=== PATIENT | male | born 1940 | race Caucasian/White ===

== ENCOUNTER 2017-03-21 23:34 | Inpatient (IN) | payer MEDICARE, MEDICAID ==
[~2017-03-21] VITALS: Ht 193 cm; Wt 126.3 kg
[2017-03-21 23:34] VITALS: BP 102/50
[~2017-03-21 23:34] MED LIST: ADVAIR 500/501 E1 INH; ADVAIR 500/501 EA INH; AEROSOL THERAPY1 DEV INH; AMIODARONE HCL200 MG PO; ATROVENT H0.017 MG/A INH; ATROVENT NAS; ATROVENT0.018 MG/A INH; CALCIUM 500 + D1 TA2 PO; COREG12.5 MG PO; COREG25 MG PO; COUMADIN2 MG PO; COUMADIN2.5 M1 PO; COUMADIN4 M2 PO; COUMADIN5 M2 PO; COZAAR25 M1 PO; Coumadin2 MG PO; Coumadin2.5 MG PO; DIGITEK0.25 MG PO; DILTIAZEM30 MG PO; DIOVAN160 M2 PO; DOXYCYCLINE100 M3 PO; DUONEB 3 MG/3 ML3 M1 INH; HYDRODIURIL25 MG PO; JANUVIA100 MG PO; KLOR-CON M2020 MEQ PO; Klor-Con PO; LASIX40 MG PO; LEVAQUIN750 M1 PO; LEVOFLOXACIN500 MG PO; LISINOPRIL2.5 MG PO; LISINOPRIL20 MG PO; LOPRESSOR50 M1 PO; METFORMIN HCL500 MG PO; METFORMIN500 MG PO; METOPROLOL SUCC50 M1 PO; METOPROLOL TART50 M1 PO; OYSTER SHELL CA PO; POTASSIUM CHLO20 ME4 PO; POTASSIUM20 MEQ PO; SIMVASTATIN80 MG PO; TUDORZA PRESS400 MCG IH; VANCOMYCIN HCL1 GM IV; VENTOLIN H0.09 MG/AC INH; VICODIN 5-3001 EACH PO; WARFARIN SOD5 MG PO
[2017-03-22 00:32] VITALS: BP 114/64
[2017-03-22 00:42] LABS: INTERNATIONAL NORM RATIO 1.7 (2.0-3.5); PROTHROMBIN TIME 18.4 SECONDS (9.0-12.4)
[2017-03-22 00:47] LABS: ALBUMIN 3.4 gm/dl (3.1-4.5); ALKALINE PHOSPHATASE 82 U/L (45-117); BILIRUBIN, TOTAL 1.2 mg/dl (0.2-1.0); BUN 25 mg/dl (7-24); CARBON DIOXIDE 26 mmol/L (21-32); CHLORIDE 107 mmol/L (98-107); EST GLOM FILT AFRICAN AMERICAN 46 ml/min; GLUCOSE 124 mg/dL (65-99); POTASSIUM 3.9 mmol/L (3.5-5.1); SGOT/AST 28 IU/L (3-35); SGPT/ALT 28 U/L (12-78); SODIUM 143 mmol/L (136-145); TOTAL PROTEIN 6.8 gm/dL (6.4-8.2)
[2017-03-22 00:48] LABS: TROPONIN I < 0.015 ng/ml (<0.045)
[2017-03-22 00:58] LABS: BASO % 0.2 % (0.0-1.0); EOS # 0.1 10*3/uL (0.0-0.4); EOS % 0.4 % (1.0-4.0); HEMATOCRIT 35.5 % (42.0-52.0); HEMOGLOBIN 11.2 g/dl (14.0-18.0); IG # 0.1 10*3/uL (0.0-0.1); LYMPH # 1.1 10*3/uL (1.3-4.4); LYMPH % 6.7 % (27.0-41.0); MEAN CELL VOLUME 92.4 fl (80.0-94.0); MEAN CORPUSCULAR HGB 29.2 pg (27.0-31.0); MEAN CORPUSCULAR HGB CONC 31.5 g/dl (33.0-37.0); MEAN PLATELET VOLUME 9.9 fl (9.6-12.3); MONO % 6.3 % (3.0-9.0); NEUT % 85.8 % (47.0-73.0); PLATELET COUNT AUTOMATED 165 10*3/uL (130-400); RED BLOOD COUNT 3.84 10*6/uL (4.50-5.90); RED CELL DISTRI WIDTH 14.2 % (0-14.5); WHITE BLOOD COUNT 16.3 10*3/uL (4.8-10.8)
[2017-03-22 01:12] VITALS: BP 110/70
[2017-03-22 01:37] LABS: BILIRUBIN NEGATIVE (NEGATIVE); BLOOD NEGATIVE (NEGATIVE); CLARITY SL CLOUDY (CLEAR); COLOR YELLOW (YELLOW); GLUCOSE NEGATIVE (NEGATIVE); KETONE NEGATIVE (NEGATIVE); LEUKO ESTERASE NEGATIVE (NEGATIVE); NITRITE NEGATIVE (NEGATIVE); PROTEIN NEGATIVE (NEGATIVE); SPECIFIC GRAVITY 1.015 (1.005-1.030); UROBILINOGEN 0.2 E.U./dl (0.2-1.0)
[2017-03-22 01:43] LABS: BACTERIA TRACE; URINE REFLEX COMMENT NO (NO); WBC 0-2 wbc/hpf (0-5)
[2017-03-22 02:30] VITALS: BP 121/77
[2017-03-22 08:00] VITALS: BP 126/70
[2017-03-22 12:00] VITALS: BP 108/55
[2017-03-22 16:00] VITALS: BP 98/54
[2017-03-23] VITALS: BP 109/52
[2017-03-23 08:00] VITALS: BP 128/78
[2017-03-23 16:00] VITALS: BP 111/53
[2017-03-24] VITALS: BP 107/63
[2017-03-24 07:25] LABS: BASO % 0.3 % (0.0-1.0); EOS # 0.2 10*3/uL (0.0-0.4); EOS % 2.3 % (1.0-4.0); HEMATOCRIT 31.5 % (42.0-52.0); HEMOGLOBIN 9.9 g/dl (14.0-18.0); IG # 0.1 10*3/uL (0.0-0.1); LYMPH % 14.8 % (27.0-41.0); MEAN CELL VOLUME 93.8 fl (80.0-94.0); MEAN CORPUSCULAR HGB 29.5 pg (27.0-31.0); MEAN CORPUSCULAR HGB CONC 31.4 g/dl (33.0-37.0); MEAN PLATELET VOLUME 10.3 fl (9.6-12.3); MONO # 0.5 10*3/uL (0.1-1.0); MONO % 8.3 % (3.0-9.0); NEUT # 4.8 10*3/uL (2.3-7.9); NEUT % 73.5 % (47.0-73.0); PLATELET COUNT AUTOMATED 129 10*3/uL (130-400); RED BLOOD COUNT 3.36 10*6/uL (4.50-5.90); RED CELL DISTRI WIDTH 14.2 % (0-14.5); WHITE BLOOD COUNT 6.5 10*3/uL (4.8-10.8)
[2017-03-24 07:58] LABS: ALBUMIN 2.6 gm/dl (3.1-4.5); BUN 25 mg/dl (7-24); CARBON DIOXIDE 26 mmol/L (21-32); CHLORIDE 107 mmol/L (98-107); GLUCOSE 107 mg/dL (65-99); MAGNESIUM 2.7 mg/dL (1.5-2.1); POTASSIUM 4.1 mmol/L (3.5-5.1); SODIUM 143 mmol/L (136-145)
[2017-03-24 07:59] LABS: EST GLOM FILT AFRICAN AMERICAN > 60 ml/min; PHOSPHOROUS 2.8 mg/dL (2.5-4.9)
[2017-03-24 08:00] VITALS: BP 89/56
[2017-03-24 16:00] VITALS: BP 117/56
[2017-03-25] VITALS: BP 105/61
[2017-03-25 07:37] LABS: INTERNATIONAL NORM RATIO 1.4 (2.0-3.5); PROTHROMBIN TIME 14.8 SECONDS (9.0-12.4)
[2017-03-25 07:53] LABS: ALBUMIN 2.6 gm/dl (3.1-4.5); BUN 22 mg/dl (7-24); CARBON DIOXIDE 28 mmol/L (21-32); CHLORIDE 107 mmol/L (98-107); EST GLOM FILT AFRICAN AMERICAN > 60 ml/min; GLUCOSE 103 mg/dL (65-99); MAGNESIUM 2.7 mg/dL (1.5-2.1); PHOSPHOROUS 2.8 mg/dL (2.5-4.9); POTASSIUM 4.6 mmol/L (3.5-5.1); SODIUM 144 mmol/L (136-145)
[2017-03-25 08:00] VITALS: BP 129/87
[2017-03-25] MEDS ORDERED: ATHLETE'S FOOT15 GM T (13:04)
== END 2017-03-25 14:25 | disposition home or self-care (01) | DRG 871 ==
LOC: ED 23:34 → 4E 03-22 01:20 → EDHOLD 03-22 01:20 → ED 03-22 01:20 → 4E 03-22 01:27 → EDHOLD 03-22 01:27 → 4E 03-22 12:10
PROVIDERS: Family Medicine; Internal Medicine; Internal Medicine Infectious Disease; Internal Medicine Nephrology; Physician Assistant
DX: A41.9 Sepsis, unspecified organism (principal); J18.9 Pneumonia, unspecified organism; N17.9 Acute kidney failure, unspecified; I11.0 Hypertensive heart disease with heart failure; I48.91 Unspecified atrial fibrillation; L03.115 Cellulitis of right lower limb; L02.212 Cutaneous abscess of back [any part, except buttock and flank]; I50.9 Heart failure, unspecified; L03.312 Cellulitis of back [any part except buttock and flank]; J44.0 Chronic obstructive pulmonary disease with (acute) lower respiratory infection; J44.1 Chronic obstructive pulmonary disease with (acute) exacerbation; M19.90 Unspecified osteoarthritis, unspecified site; E78.5 Hyperlipidemia, unspecified; G47.33 Obstructive sleep apnea (adult) (pediatric); M81.0 Age-related osteoporosis without current pathological fracture; G25.81 Restless legs syndrome; M54.9 Dorsalgia, unspecified; E11.9 Type 2 diabetes mellitus without complications; Z88.0 Allergy status to penicillin; Z88.1 Allergy status to other antibiotic agents; Z88.8 Allergy status to other drugs, medicaments and biological substances; Z90.49 Acquired absence of other specified parts of digestive tract; Z98.42 Cataract extraction status, left eye; Z98.41 Cataract extraction status, right eye; Z87.891 Personal history of nicotine dependence; Z82.49 Family history of ischemic heart disease and other diseases of the circulatory system; Z84.89 Family history of other specified conditions; Z83.3 Family history of diabetes mellitus; Z79.899 Other long term (current) drug therapy

== ENCOUNTER → 2017-05-28 | Outpatient (CLI) | payer MEDICARE, MEDICAID ==
[~2017-05-28] MED LIST changes: +ATHLETE'S FOOT15 GM T
== END | disposition home or self-care (01) ==
LOC: RAD 11:03
DX: J44.9 Chronic obstructive pulmonary disease, unspecified (principal); E11.9 Type 2 diabetes mellitus without complications; I10 Essential (primary) hypertension; I25.10 Atherosclerotic heart disease of native coronary artery without angina pectoris; Z87.891 Personal history of nicotine dependence

== ENCOUNTER 2017-06-05 15:18 | Inpatient (IN) | payer MEDICARE, MEDICAID ==
[~2017-06-05] VITALS: Ht 193 cm; Wt 129.3 kg
--- NOTE | ~2017-06-05 | WRIGHTHP ---
[place], [place] PATIENT HISTORY AND PHYSICAL EXAM NAME: BIJAL LEES [facility] #: [id number] UNIT #: [id number] ROOM: 411 DOCTOR: PAWAN PADILLA MD BIRTHDATE: [birth year] DOS: 06/06/2017 HISTORY OF PRESENT ILLNESS: The patient who has been admitted to hospital yesterday on 06/05/2017. The patient is having pain and swelling of the right forearm and left lower leg and ankle. The patient states that he normally has swelling of the left ankle and left foot that has been good, but this swelling in the right forearm is new. He is also having pain in the right forearm. He started having this swelling of the arm about 5 days ago, progressively getting worse and getting more painful. He came to the hospital ER and was diagnosed of having severe cellulitis of the right forearm with varicose dermatitis of the legs and admitted to the hospital. The patient has history of COPD with emphysema, history of varicose dermatitis, obesity and the patient is also having history of deep vein thrombosis in the past and is on Coumadin for that. Also, having atrial fibrillation, diabetes mellitus and hypertension. ALLERGIES: The patient is allergic to multiple medications including PENICILLIN, BACITRACIN, , NEOMYCIN, POLYMYXIN B, SEROQUEL, LEVOFLOXACIN AND MEROPENEM. MEDICATIONS: He is taking following medications at present, Lasix 40 mg twice daily, potassium chloride 40 twice daily, Coumadin 2 mg daily, Imodium hydrochloride 200 mg twice daily, metformin 500 mg twice daily, metoprolol 75 mg twice daily, Advair 500/50 twice daily and Januvia 100 mg daily. The patient also had past history of renal failure, respiratory distress, anemia, atrial fibrillation, chronic back pain, bilateral cellulitis of the lower leg, bursitis, cellulitis, congestive heart failure, COPD with excerebration, degenerative joint disease, hyperlipidemia, hypertension, hypokalemia, obesity, and pneumonia. PAST SURGICAL HISTORY: He has a history of cardiac catheterization, cholecystectomy, colonoscopy with polypectomy. SOCIAL HISTORY: The patient used to smoke many years ago, but he does not smoke now. He does not drink any alcohol. No abuse of drugs. FAMILY HISTORY: Father of heart disease, mother of cerebral hemorrhage. History of diabetes mellitus and coronary heart disease in the family. PHYSICAL EXAMINATION: GENERAL: The patient is conscious, alert, and oriented, and does seem in any acute distress. VITAL SIGNS: He is 6 feet 4 inches tall, weighing 280 pounds, body mass is 33.8, blood pressure is 155/59, pulse is 60, respirations 18, temperature 98.3. HEENT: Unremarkable. No glandular enlargement. NECK: Trachea is center, having some scattered wheezing in both the lungs with increased expiration. HEART: Showing atrial fibrillation. ABDOMEN: Soft. Liver and spleen not palpable. No area of tenderness. No mass palpable. [place], [place] PATIENT HISTORY AND PHYSICAL EXAM [id number] UN[facility] #: [id number] ROOM: 411 DOCTOR: PAWAN PADILLA MD BIRTHDATE: [birth year] EXTREMITIES: Having swelling of the right arm and forearm more in the forearm and hand with some localized temperature and there is some suspected lesion near the elbow and movement of the right arm and forearm are somewhat painful and limited and also having varicose dermatitis of both lower limbs, worse on the left side with edema of the legs. DIAGNOSES: Cellulitis of the right arm with varicose dermatitis with atrial fibrillation, back pain, sepsis, chronic obstructive pulmonary disease, shortness of breath, pneumonitis, obesity, diabetes mellitus, ASHD, and hypertension. PLAN OF TREATMENT: The patient will be admitted to hospital, will be started on antibiotic and his home medication and will be watched closely. He will have his aerosol treatment for his COPD. PAWAN PADILLA MD CM:HISPHYS:PATIENT HISTORY AND PHYSICAL EXAMINATION 0723 7 PAWAN PADILLA MD 06/06/1708 interface
--- NOTE | ~2017-06-05 | CON ---
[place], [place] REPORT OF CONSULTATION NAME: BIJAL LEES UNIT #: [id number] ROOM: 411 DOCTOR: ARIANA HARPER DPM BIRTHDATE: [birth year] DOS: 06/08/2017 SUBJECTIVE: The patient presents with swelling, chronic venous insufficiency of both lower extremities. The patient has had a history of venous ulcerations and infection consisting of MRSA infection to the left lower extremity. PAST MEDICAL HISTORY: Renal failure, respiratory distress, anemia, atrial fibrillation, chronic back pain, bilateral cellulitis of lower leg, bursitis, cellulitis, CHF, COPD, degenerative joint disease, hyperlipidemia, hypertension, hypokalemia, obesity, pneumonia. PAST SURGICAL HISTORY: Cardiac catheterization, cholecystectomy, colonoscopy with polypectomy. SOCIAL HISTORY: The patient used to smoke many years ago, but does not currently smoke. Denies alcohol or drug use. FAMILY HISTORY: Father is of heart disease. Mother of cerebral hemorrhage. Family history of diabetes and coronary artery disease. LOWER EXTREMITY EXAMINATION: Pedal pulses nonpalpable. Decreased skin temperature. Decreased capillary fill time. Decreased hair growth bilateral. There is edema bilateral lower extremity, left worse than right, chronic venous stasis dermatitis and changes to the anterior aspect of bilateral lower legs. No signs of acute abscess, no signs of ulceration or cellulitis. Venous Doppler is negative for DVT. I had ordered arterial Dopplers, which have not been performed yet. ASSESSMENT: Edema; chronic venous insufficiency; venous stasis dermatitis, bilateral lower leg; peripheral vascular disease. PLAN: Evaluation and management. I was going to apply Unna boots, but the arterial testing was not performed yet, scheduled later today. Ordered Tubigrip to be applied at this time. The patient does not have ENRIQUETA of over 0.6. Unna boots will not be recommended. We will follow the patient, see how he responds to the Tubigrip and if arterial supply is sufficient, we can apply the Unna boots in a day or two. Thank you for kind consultation. [place], [place] REPORT OF CONSULTATION NAME: BIJAL LEES UNIT #: [id number] ROOM: 411 DOCTOR: ARIANA HARPER DPM BIRTHDATE: [birth year] ARIANA HARPER DPM CM:CONSTR:REPORT OF CONSULTATION 1256 06/09/17 0130 interface
[2017-06-05 15:24] VITALS: BP 136/78
--- NOTE | 2017-06-05 15:51 | NUR ---
WOUND NOTE; PT HAS CHRONIC STASIS CHANGES TO BILATERAL LOWER LEGS SCATTERED WOUNDS/ECCHYMOSIS TO BILATERAL FOREARMS. ABHIJEET RN
[2017-06-05 16:05] LABS: BASO # 0.1 10*3/uL (0.0-0.1); BASO % 0.7 % (0.0-1.0); EOS # 0.2 10*3/uL (0.0-0.4); EOS % 1.9 % (1.0-4.0); HEMOGLOBIN 10.6 g/dl (14.0-18.0); LYMPH # 1.2 10*3/uL (1.3-4.4); LYMPH % 14.2 % (27.0-41.0); MEAN CELL VOLUME 92.1 fl (80.0-94.0); MEAN CORPUSCULAR HGB 28.7 pg (27.0-31.0); MEAN CORPUSCULAR HGB CONC 31.2 g/dl (33.0-37.0); MEAN PLATELET VOLUME 9.6 fl (9.6-12.3); MONO # 0.7 10*3/uL (0.1-1.0); MONO % 8.2 % (3.0-9.0); NEUT # 6.2 10*3/uL (2.3-7.9); NEUT % 74.2 % (47.0-73.0); PLATELET COUNT AUTOMATED 259 10*3/uL (130-400); RED BLOOD COUNT 3.69 10*6/uL (4.50-5.90); RED CELL DISTRI WIDTH 14.4 % (0-14.5); WHITE BLOOD COUNT 8.4 10*3/uL (4.8-10.8)
[2017-06-05 16:19] LABS: ALBUMIN 3.1 gm/dl (3.1-4.5); CREATININE 1.49 mg/dL (0.70-1.30); POTASSIUM 4.2 mmol/L (3.5-5.1); TOTAL PROTEIN 6.9 gm/dL (6.4-8.2)
[2017-06-05 17:01] LABS: INTERNATIONAL NORM RATIO 1.7 (2.0-3.5)
[2017-06-05] MEDS ORDERED: BACTRIM 400-801 EACH PO ×2 (17:34→17:55)
[2017-06-05] MEDS ORDERED: ROBITUSSIN AC 110 ML PO (17:34)
[2017-06-05] MEDS ORDERED: CLEOCIN HCL300 MG PO (17:36)
--- NOTE | 2017-06-05 17:53 | NUR ---
PT HAS A TWO SCABBED AREAS ON LT ARM. BLE ARE EDEMATOUS/CELLULITIS. PT IS REFUSING WOUND PHOTOS.
[2017-06-05 18:00] VITALS: BP 170/96
--- NOTE | 2017-06-05 18:00 | NUR ---
A 77, admitted to 4E, under the services of IRMA Parisi MD with a diagnosis of OLECRANON NURSITIS, RIGHT ELBOW BURSITIS. Chief complaint is MULTIPLE COMPLAINTS. Patient arrived via stretcher from ER. Monitor applied. Initial assessment completed. Vital signs taken and recorded. IRMA PARISI MD notified of admission to the unit. Orders received. See assessment for past medical history, medications and allergies. Patient and/or family oriented to unit. visitation policy reviewed. Clothing/patient valuable form completed. GIORGIO MCGREGOR
--- NOTE | 2017-06-05 19:15 | NUR ---
NOTIFIED DR. PADILLA THAT PATIENT WAS ADMITTED AND DR. CRAFT WANTED HIM NOTIFIED.
[2017-06-05 20:00] VITALS: BP 152/53
[2017-06-06] VITALS: BP 155/59
--- NOTE | 2017-06-06 03:24 | NUR ---
PATIENT RESTING WELL THROUGHOUT SHIFT. NO SIGNS OR SYMPTOMS OF DISTRESS NOTED. NO COMPLAINTS VOICED. IN BED WITH EYES CLOSED AT THIS TIME. WILL CONTINUE TO MONITOR. CALL LIGHT IN REACH.
--- NOTE | 2017-06-06 03:34 | NUR ---
24 HOUR CHART CHECK DONE.
--- NOTE | 2017-06-06 07:00 | NUR ---
DR. PADILLA HERE TO SEE PATIENT.
[2017-06-06 08:00] VITALS: BP 129/70
[2017-06-06 16:00] VITALS: BP 100/82
--- NOTE | 2017-06-06 19:55 | NUR ---
DR. CRAFT NOTIFIED OF PATIENTS CORRECT HOME MEDS, MEDS CHANGED ORDERED. AND ALSO REQUEST FOR PAIN MED FOR BACK PAIN. ALSO ORDERED. SAMUEL BOURNE RN
--- NOTE | 2017-06-06 20:35 | NUR ---
PT. RESTING IN BED. HEP LOCK IN SHARI ASYMPT. LUNGS CLEAR BILAT, PULSE OX 97% ON RA. ABDOMEN SOFT, NONDISTENDED AND NORMO. 2+BLE EDEMA, RIGHT ELBOW AND BLE, L>R. COMPLAINTS OF LOWER BACK PAIN FROM PREVIOUS FALL PRIOR TO ADMISSION. SAMUEL BOURNE RN
--- NOTE | 2017-06-06 21:38 | NUR ---
NORCO GIVEN ORDERED FOR COMPLAINTS OF BACK PAIN.
--- NOTE | 2017-06-06 22:13 | NUR ---
PT. SLEEPING, NORCO EFFECTIVE.
[2017-06-07] VITALS: BP 119/52
--- NOTE | 2017-06-07 05:00 | NUR ---
Patient resting quietly with no c/o discomfort. Respirations easy and regular. Vital signs stable. No overt distress. YULISSA CLEMENT R
[2017-06-07 08:00] VITALS: BP 126/66
--- NOTE | 2017-06-07 08:00 | NUR ---
24 HR chart check completed.
--- NOTE | 2017-06-07 08:00 | NUR ---
CASE MANAGE VS. PT ASKS THAT I TALK TO HIS ABOUT DC NEEDS.
--- NOTE | 2017-06-07 10:47 | NUR ---
DR RIOJAS MADE AWARE OF NEED FOR R ELBOW WOUND AND RESULTS OF WOUND CULTURE.
--- NOTE | 2017-06-07 11:17 | NUR ---
NABEELBIJAL L [id number] Please refer to the physician's history and physical for past medical history, comorbid conditions, and allergies. Diagnosis: OLECRANON BURSITIS, RIGHT ELBOW CELLULITIS OF RIGH Nicolas Score: 19,LOW OR NO RISK WOUND DESCRIPTIONS: Location of the wound: right elbow Type of wound: Thickness: Full Size: 0.2cm x 0.4cm x 0.2cm Tunneling: none Undermining: none Sinus Tract: none Presence of Exudate: Serous Amount: Light Color: Yellow Odor: None Periwound Skin Appearance: Erythema Wound edges: approximated Pain (associated with wound): none at time of assessment How does patient state this happened? pt stated it was drained on Wednesday prior to that it was red, warm, and swollen. Surface the patient is resting on: Isoflex SKIN PREVENTION RECOMMENDATION: 1. Pressure redistribution support surface as appropriate 2. Elevate heels 3. Remove boots/TEDS every shift and reapply 4. Head of bed 30 degrees as tolerated 5. Assess nutrition and hydration 6. Manage moisture 7. Avoid the use of containment devices while in bed 8. Use absorptive products on surfaces limit layers of linens on bed 9. Turn and reposition every 1-2 hours in bed and every 1 hour in chair as tolerated 10. Weight shifts every 15 minutes while up in chair 11. Offloading with pillows or device to keep heels elevated off bed 12. Monitor skin at least every shift 13. Inspect under medical devices twice a day WOUND TREATMENT RECOMMENDATIONS: Cleanse area with nss and apply therahoney and optifoam gentle daily.
[2017-06-07 12:10] LABS: BASO # 0.1 10*3/uL (0.0-0.1); BASO % 0.9 % (0.0-1.0); EOS # 0.2 10*3/uL (0.0-0.4); EOS % 2.6 % (1.0-4.0); HEMATOCRIT 34.6 % (42.0-52.0); HEMOGLOBIN 10.7 g/dl (14.0-18.0); LYMPH % 15.1 % (27.0-41.0); MEAN CORPUSCULAR HGB 28.5 pg (27.0-31.0); MEAN CORPUSCULAR HGB CONC 30.9 g/dl (33.0-37.0); MEAN PLATELET VOLUME 9.4 fl (9.6-12.3); MONO # 0.6 10*3/uL (0.1-1.0); MONO % 8.5 % (3.0-9.0); NEUT % 72.3 % (47.0-73.0); PLATELET COUNT AUTOMATED 264 10*3/uL (130-400); RED BLOOD COUNT 3.76 10*6/uL (4.50-5.90); RED CELL DISTRI WIDTH 14.5 % (0-14.5); WHITE BLOOD COUNT 6.9 10*3/uL (4.8-10.8)
[2017-06-07 12:24] LABS: ALBUMIN 2.9 gm/dl (3.1-4.5); CREATININE 1.4 mg/dL (0.70-1.30); POTASSIUM 4.5 mmol/L (3.5-5.1); TOTAL PROTEIN 6.6 gm/dL (6.4-8.2)
--- NOTE | 2017-06-07 13:11 | NUR ---
ASSEMBLY ASSOCIATE CALLED AND TALKED TO . SHE ANSWERED ASSESSMENT QUESTIONS: It Service Continuity Supervisor in to talk to patient. Patient states lives at HOME [address] with HIS . There are 0 steps in the home. Physician: DR CRAFT Pharmacy: [facility] services: PASSPORT AID --- THROUGH [facility] AND NURSE FROM [facility] Patient's level of ADLs: MODERATE ASSIST Patient has working utilities: YES DME: CANE/WALKER/GLUC/HOSP BED/O2 (PLUS PORTABLE) FROM [facility]. AT NIGHT AND PRN Follow-up physician's appointment after d/c: WILL MAKE APPT Does patient want to access PORTAL?: Discharge plan HOME. EWA SANCHEZ REFUSES SNF. STATES PT WILL GO BACK HOME
[2017-06-07 16:00] VITALS: BP 131/85
[2017-06-07 16:43] VITALS: BP 131/83
--- NOTE | 2017-06-07 17:57 | NUR ---
DR HARPER CONSULTED AND HAS ORDERED VENOUS US OF BILATERAL LOWER LEGS. WENT TO APPLY DRESSING TO R ARM AND PT HAS REFUSED AT THIS TIME.
--- NOTE | 2017-06-07 19:32 | NUR ---
PT. RESTING IN BED WATCHING TV. HEP LOCK IN SHARI ASYMPT. LUNGS HAVE EXP. WHEEZE. ABDOMEN SOFTLY DISTENDED AND OBESE. BLE EDEMA NOTED, L>R, LEFT 1+ AND RIGHT 2+ TO AND INCLUDING FEET. DRESSING TO RIGHT ELBOW APPLIED ORDERED. NO DRAINAGE FROM NEEDLEPOINT SITE OR CELLULITIS OF ELBOW. SAMUEL BOURNE RN
--- NOTE | 2017-06-07 21:18 | NUR ---
IV SITE IN THE LEFT AC DISCONTINUED DUE TO LEAKING. #20 GAUGE RESTARTED BACK IN THE LEFT AC. PATIENT TOLERATED WELL. GOOD BLOOD RETURN. FLUSHED WITH NORMAL SALINE. ANTIBIOTIC RESTARTED AT THIS TIME, SITE REMAINS ASYMPTOMATIC
--- NOTE | 2017-06-07 23:17 | NUR ---
PT. GIVEN NORCO AT 2044 FOR COMPLAINTS OF BACK PAIN, STATED EFFECTIVE.
[2017-06-08] VITALS: BP 122/59
[2017-06-08 05:58] LABS: BASO # 0.1 10*3/uL (0.0-0.1); BASO % 0.8 % (0.0-1.0); EOS # 0.2 10*3/uL (0.0-0.4); EOS % 2.4 % (1.0-4.0); HEMATOCRIT 32.2 % (42.0-52.0); HEMOGLOBIN 10.1 g/dl (14.0-18.0); LYMPH # 1.2 10*3/uL (1.3-4.4); LYMPH % 19.2 % (27.0-41.0); MEAN CELL VOLUME 90.7 fl (80.0-94.0); MEAN CORPUSCULAR HGB 28.5 pg (27.0-31.0); MEAN CORPUSCULAR HGB CONC 31.4 g/dl (33.0-37.0); MEAN PLATELET VOLUME 9.6 fl (9.6-12.3); MONO # 0.5 10*3/uL (0.1-1.0); MONO % 8.5 % (3.0-9.0); NEUT # 4.2 10*3/uL (2.3-7.9); NEUT % 68.6 % (47.0-73.0); PLATELET COUNT AUTOMATED 262 10*3/uL (130-400); RED BLOOD COUNT 3.55 10*6/uL (4.50-5.90); RED CELL DISTRI WIDTH 14.2 % (0-14.5); WHITE BLOOD COUNT 6.1 10*3/uL (4.8-10.8)
[2017-06-08 06:24] LABS: ALBUMIN 2.8 gm/dl (3.1-4.5); ALKALINE PHOSPHATASE 102 U/L (45-117); BUN 23 mg/dl (7-24); CHLORIDE 102 mmol/L (98-107); CREATININE 1.33 mg/dL (0.70-1.30); INTERNATIONAL NORM RATIO 1.6 (2.0-3.5); SGOT/AST 36 IU/L (3-35); SGPT/ALT 38 U/L (12-78); SODIUM 137 mmol/L (136-145); TOTAL PROTEIN 6.2 gm/dL (6.4-8.2)
[2017-06-08 08:00] VITALS: BP 152/83
--- NOTE | 2017-06-08 10:59 | NUR ---
OFFICE NOTIFIED OF CONSULT
--- NOTE | 2017-06-08 15:05 | NUR ---
Shift chart check completed.
[2017-06-08 16:00] VITALS: BP 125/65
--- NOTE | 2017-06-08 19:47 | NUR ---
PT. RESTING IN CHAIR. HEP LOCK IN SHARI ASYMPT. LUNGS DIMINISHED BUT CLEAR BILAT. ABDOMEN SOFTLY DISTENDED AND NORMO. TRACE BLE ON RIGHT AND 1-2+ ON LEFT. PT. REFUSING TO LEAVE ARM IN SLING, STATES HE CANT STAND IT. ALSO KEEPS REMOVING DRESSING FROM RIGHT ELBOW. THERAHONEY AND BANDAID APPLIED TO SITE PER PT DIRECTION. RESP. EASY AND REG NO DISTRESS. SAMUEL BOURNE RN
[2017-06-08 20:00] VITALS: BP 138/95
--- NOTE | 2017-06-08 21:34 | NUR ---
[facility] FOR COMPLAINTS OF BACK PAIN.
[2017-06-09] VITALS: BP 111/55
--- NOTE | 2017-06-09 02:17 | NUR ---
24 HOUR CHART CHECK DONE.
[2017-06-09 06:03] LABS: ALBUMIN 2.9 gm/dl (3.1-4.5); ALKALINE PHOSPHATASE 101 U/L (45-117); BUN 24 mg/dl (7-24); CHLORIDE 99 mmol/L (98-107); CREATININE 1.29 mg/dL (0.70-1.30); SGOT/AST 32 IU/L (3-35); SGPT/ALT 37 U/L (12-78); SODIUM 139 mmol/L (136-145); TOTAL PROTEIN 6.4 gm/dL (6.4-8.2)
[2017-06-09 06:14] LABS: BASO % 0.7 % (0.0-1.0); EOS # 0.2 10*3/uL (0.0-0.4); EOS % 3.4 % (1.0-4.0); HEMATOCRIT 33.8 % (42.0-52.0); HEMOGLOBIN 10.6 g/dl (14.0-18.0); LYMPH # 1.2 10*3/uL (1.3-4.4); LYMPH % 21.2 % (27.0-41.0); MEAN CELL VOLUME 91.1 fl (80.0-94.0); MEAN CORPUSCULAR HGB 28.6 pg (27.0-31.0); MEAN CORPUSCULAR HGB CONC 31.4 g/dl (33.0-37.0); MEAN PLATELET VOLUME 9.7 fl (9.6-12.3); MONO # 0.6 10*3/uL (0.1-1.0); MONO % 9.8 % (3.0-9.0); NEUT # 3.7 10*3/uL (2.3-7.9); NEUT % 64.2 % (47.0-73.0); PLATELET COUNT AUTOMATED 267 10*3/uL (130-400); RED BLOOD COUNT 3.71 10*6/uL (4.50-5.90); RED CELL DISTRI WIDTH 14.3 % (0-14.5); WHITE BLOOD COUNT 5.8 10*3/uL (4.8-10.8)
[2017-06-09 06:19] LABS: INTERNATIONAL NORM RATIO 1.6 (2.0-3.5)
--- NOTE | 2017-06-09 06:28 | NUR ---
PATIENT RESTED WELL THROUGHOUT SHIFT. IV OUT THIS AM. NEW IV INSERTED BY ARCHIE ARRIETA INTO LEFT WRIST. PATIENT TOLERATED WELL. WILL CONTINUE TO MONITOR. CALL LIGHT IN REACH.
--- NOTE | 2017-06-09 06:48 | NUR ---
Shift chart check completed.
--- NOTE | 2017-06-09 07:20 | NUR ---
TRIED TO GET PATIENT TO ELEVATE RIGHT ARM WITH SLING ATTACHED TO IV POLE AND HE REFUSED. STATED HIS ARM WAS HURTING AND HE WAS NOT ELEVATING IT TODAY EITHER. ALSO TOOK OFF HOSE FROM LEGS AND REFUSED TO PUT THEM BACK ON ALSO. SAID HE WAS GETTING BOOTS PUT ON TODAY AND HE DIDN'T WANT HIS LEGS SWELLED. TOLD HIM THAT WAS THE PURPOSE FOR THEM TO KEEP THE SWELLING DOWN AND HE SAID HE DIDN'T WANT THEM ON.
[2017-06-09 08:00] VITALS: BP 135/80
--- NOTE | 2017-06-09 08:16 | NUR ---
NORCO GIVEN FOR C/O BACK PAIN. PATIENT REFUSING TO ELEVATE ARM SAYING THAT HE NEEDS TO KEEP TAKING IT DOWN TO USE THE URINAL & IT IS TOO HARD & HE IS UNABLE TO WAIT FOR SOMEONE TO GET HERE TO RELEASE IT. ALSO REFUSING TO PUT TUBIGRIPS ON BILAT LEGS SAYING THEY WERE MAKING HIS KNEES HURT & SWELL. PER THE PATIENT HIS LEGS ARE PERFECT & WILL NOT GET ANY SMALLER THAN THEY ARE. ICREASING THE LASIX IS NOT GOING TO HELP. SWELLING IN LEFT IS > THAN RIGHT. PPP/ HEP LOCK SECURE TO LEFT WRIST AT PRESENT
--- NOTE | 2017-06-09 09:54 | NUR ---
PT REFUSED DRESSING
--- NOTE | 2017-06-09 09:54 | NUR ---
PT REFUSED DRESSING TO RT ELBOW - REFUSED TUBIGRIP TO BLL & REFUSED TO ALLOW STAFF TO ELEVATE RT ARM ORDERED.
--- NOTE | 2017-06-09 09:55 | NUR ---
PAIN BETTER SINCE NORCO - BACK 02/17 & ARM IS 01/18
[2017-06-09] MEDS ORDERED: LIPITOR20 MG PO (11:58)
[2017-06-09] MEDS ORDERED: COUMADIN2.5 M1 PO (11:58)
[2017-06-09 12:00] VITALS: BP 125/70
--- NOTE | 2017-06-09 12:25 | NUR ---
NOW SLEEPING IN CAHIR WITH TUBIGRIPS TO BILAT LOWER LEGS AFTER WASHED UP BY PA. STILL REFUSING RT ARM TO E ELEVATED.
--- NOTE | 2017-06-09 14:35 | NUR ---
Hep Lock discontinued. Site asymptomatic. Pressure applied. Sterile dressing applied. JOVANA DE LA CRUZ
--- NOTE | 2017-06-09 15:11 | NUR ---
Discharge instructions reviewed with patient/family. Patient receptive and verbalizes understanding. Follow-up care arranged. Written instructions given to patient/family. JOVANA DE LA CRUZ
--- NOTE | 2017-06-09 15:12 | NUR ---
Patient being discharged to home to resume [facility]. Faxed order and clinicals to resume services.
== END 2017-06-09 15:11 | disposition home health service (06) | DRG 871 ==
LOC: ED 15:18 → EDHOLD 16:58 → 4E 16:58
PROVIDERS: Emergency Medicine; Internal Medicine; ADMIT Internal Medicine
DX: A41.9 Sepsis, unspecified organism (principal); J18.9 Pneumonia, unspecified organism; N17.0 Acute kidney failure with tubular necrosis; I11.0 Hypertensive heart disease with heart failure; E44.0 Moderate protein-calorie malnutrition; I50.22 Chronic systolic (congestive) heart failure; E11.51 Type 2 diabetes mellitus with diabetic peripheral angiopathy without gangrene; D64.9 Anemia, unspecified; B35.1 Tinea unguium; L03.113 Cellulitis of right upper limb; J44.0 Chronic obstructive pulmonary disease with (acute) lower respiratory infection; I48.91 Unspecified atrial fibrillation; E78.5 Hyperlipidemia, unspecified; R79.1 Abnormal coagulation profile; E66.09 Other obesity due to excess calories; I87.2 Venous insufficiency (chronic) (peripheral); E11.65 Type 2 diabetes mellitus with hyperglycemia; G25.81 Restless legs syndrome; M19.90 Unspecified osteoarthritis, unspecified site; G47.33 Obstructive sleep apnea (adult) (pediatric); M81.0 Age-related osteoporosis without current pathological fracture; M70.21 Olecranon bursitis, right elbow; D72.821 Monocytosis (symptomatic); I89.0 Lymphedema, not elsewhere classified; I25.10 Atherosclerotic heart disease of native coronary artery without angina pectoris; E11.620 Type 2 diabetes mellitus with diabetic dermatitis; Z90.49 Acquired absence of other specified parts of digestive tract; Z98.41 Cataract extraction status, right eye; Z98.42 Cataract extraction status, left eye; Z82.49 Family history of ischemic heart disease and other diseases of the circulatory system; Z88.0 Allergy status to penicillin; Z91.048 Other nonmedicinal substance allergy status; Z88.1 Allergy status to other antibiotic agents; Z88.8 Allergy status to other drugs, medicaments and biological substances; Z88.6 Allergy status to analgesic agent; Z83.3 Family history of diabetes mellitus; Z84.89 Family history of other specified conditions; Z86.14 Personal history of Methicillin resistant Staphylococcus aureus infection; Z79.4 Long term (current) use of insulin; Z68.33 Body mass index [BMI] 33.0-33.9, adult

== ENCOUNTER 2017-06-14 08:59 | Emergency (ER) | payer MEDICARE, MEDICAID ==
[~2017-06-14 08:59] MED LIST changes: +BACTRIM 400-801 EACH PO; +CLEOCIN HCL300 MG PO; +LIPITOR20 MG PO; +ROBITUSSIN AC 110 ML PO
[2017-06-14 09:12] LABS: BASO # 0.1 10*3/uL (0.0-0.1); BASO % 0.8 % (0.0-1.0); EOS # 0.2 10*3/uL (0.0-0.4); EOS % 3.3 % (1.0-4.0); HEMOGLOBIN 10.9 g/dl (14.0-18.0); LYMPH # 1.6 10*3/uL (1.3-4.4); LYMPH % 24.3 % (27.0-41.0); MEAN CELL VOLUME 93.3 fl (80.0-94.0); MEAN CORPUSCULAR HGB 28.2 pg (27.0-31.0); MEAN CORPUSCULAR HGB CONC 30.3 g/dl (33.0-37.0); MEAN PLATELET VOLUME 9.1 fl (9.6-12.3); MONO # 0.5 10*3/uL (0.1-1.0); MONO % 8.4 % (3.0-9.0); NEUT # 4.1 10*3/uL (2.3-7.9); NEUT % 62.6 % (47.0-73.0); PLATELET COUNT AUTOMATED 248 10*3/uL (130-400); RED BLOOD COUNT 3.86 10*6/uL (4.50-5.90); RED CELL DISTRI WIDTH 14.5 % (0-14.5); WHITE BLOOD COUNT 6.5 10*3/uL (4.8-10.8)
[2017-06-14 09:27] LABS: ALBUMIN 3.3 gm/dl (3.1-4.5); ALKALINE PHOSPHATASE 105 U/L (45-117); BUN 31 mg/dl (7-24); CHLORIDE 105 mmol/L (98-107); MAGNESIUM 2.9 mg/dL (1.5-2.1); POTASSIUM 4.8 mmol/L (3.5-5.1); SGOT/AST 44 IU/L (3-35); SGPT/ALT 47 U/L (12-78); SODIUM 142 mmol/L (136-145); TOTAL PROTEIN 7.1 gm/dL (6.4-8.2)
[2017-06-14 09:32] LABS: TROPONIN I < 0.015 ng/ml (<0.045)
[2017-06-14 10:15] VITALS: BP 134/68
== END 2017-06-14 13:04 | disposition home or self-care (01) ==
LOC: ED 08:59
PROVIDERS: Emergency Medicine
DX: R10.13 Epigastric pain (principal); R07.9 Chest pain, unspecified; I25.2 Old myocardial infarction; I48.91 Unspecified atrial fibrillation; J44.9 Chronic obstructive pulmonary disease, unspecified; E78.5 Hyperlipidemia, unspecified; M19.90 Unspecified osteoarthritis, unspecified site; M81.0 Age-related osteoporosis without current pathological fracture; I11.0 Hypertensive heart disease with heart failure; I50.9 Heart failure, unspecified; E11.9 Type 2 diabetes mellitus without complications; Z88.0 Allergy status to penicillin; Z88.1 Allergy status to other antibiotic agents; Z88.8 Allergy status to other drugs, medicaments and biological substances; Z79.899 Other long term (current) drug therapy; Z87.891 Personal history of nicotine dependence

== ENCOUNTER 2017-11-17 09:26 | Inpatient (IN) | payer MEDICARE, MEDICAID ==
[2017-11-17] VITALS (7 sets, daily range): BP systolic 116–164; BP diastolic 66–97
[~2017-11-17] VITALS: Ht 193 cm; Wt 130.7 kg
--- NOTE | ~2017-11-17 | EKG ---
[place], [place] ELECTROCARDIOGRAM REPORT NAME: BIJAL LEES UNIT #: [id number] ROOM: [facility] DOCTOR: SHERIF ABDUL MD BIRTHDATE: [birth year] DOS: 11/17/2017 TIME: 0928 hours. IMPRESSION: 1. Atrial fibrillation with controlled ventricular rate. 2. Incomplete left bundle branch block. 3. An abnormal ECG. 4. No previous tracing is available for comparison. SHERIF ABDUL MD CM:EKGRPT:ELECTROCARDIOGRAM REPORT 1130 1214 SHERIF ABDUL MD
--- NOTE | ~2017-11-17 | EKG ---
[place], [place] ELECTROCARDIOGRAM REPORT NAME: BIJAL LEES UNIT #: [id number] ROOM: [facility] DOCTOR: SHERIF ABDUL MD BIRTHDATE: [birth year] DOS: 11/17/2017 TIME: 1227 hours IMPRESSION: 1. Atrial fibrillation with a ventricular rate of 65 beats per minute. 2. PVC or aberrant conduction. 3. Complete left bundle branch block. 4. An abnormal ECG. 5. No significant change from an ECG done at 0928 hours for the same day. SHERIF ABDUL MD CM:EKGRPT:ELECTROCARDIOGRAM REPORT 1130 1216 SHERIF ABDUL MD
--- NOTE | ~2017-11-17 | EKG ---
[place], [place] ELECTROCARDIOGRAM REPORT NAME: BIJAL LEES UNIT #: [id number] ROOM: [facility] DOCTOR: SHERIF ABDUL MD BIRTHDATE: [birth year] DOS: 11/17/2017 TIME: 1527 hours. IMPRESSION: 1. Atrial fibrillation with a single PVC, rate 64 beats per minute. 2. Incomplete left bundle-branch block. 3. No significant change from ECG done at 1227 hours of the same day. SHERIF ABDUL MD CM:EKGRPT:ELECTROCARDIOGRAM REPORT 1130 1218 SHERIF ABDUL MD
[2017-11-17 09:48] LABS: BASO % 0.3 % (0.0-1.0); EOS # 0.2 10*3/uL (0.0-0.4); EOS % 2.2 % (1.0-4.0); HEMOGLOBIN 11.2 g/dl (14.0-18.0); LYMPH # 1.2 10*3/uL (1.3-4.4); LYMPH % 15.4 % (27.0-41.0); MEAN CELL VOLUME 90.9 fl (80.0-94.0); MEAN CORPUSCULAR HGB 28.3 pg (27.0-31.0); MEAN CORPUSCULAR HGB CONC 31.1 g/dl (33.0-37.0); MEAN PLATELET VOLUME 9.3 fl (9.6-12.3); MONO # 0.6 10*3/uL (0.1-1.0); MONO % 7.5 % (3.0-9.0); NEUT # 5.6 10*3/uL (2.3-7.9); NEUT % 73.9 % (47.0-73.0); PLATELET COUNT AUTOMATED 202 10*3/uL (130-400); RED BLOOD COUNT 3.96 10*6/uL (4.50-5.90); RED CELL DISTRI WIDTH 14.5 % (0-14.5); WHITE BLOOD COUNT 7.6 10*3/uL (4.8-10.8)
[2017-11-17 09:58] LABS: ACT PARTIAL THROMBO TIME 34.3 SECONDS (20.8-31.5); INTERNATIONAL NORM RATIO 1.7 (2.0-3.5)
[2017-11-17 10:05] LABS: ALBUMIN 3.5 gm/dl (3.1-4.5); ALKALINE PHOSPHATASE 100 U/L (45-117); BUN 33 mg/dl (7-24); CHLORIDE 104 mmol/L (98-107); CREATININE 1.53 mg/dL (0.70-1.30); LIPASE 189 U/L (73-393); POTASSIUM 4.5 mmol/L (3.5-5.1); SGOT/AST 20 IU/L (3-35); SGPT/ALT 27 U/L (12-78); SODIUM 142 mmol/L (136-145); TOTAL PROTEIN 7.3 gm/dL (6.4-8.2)
[2017-11-17 10:06] LABS: TROPONIN I < 0.015 ng/ml (<0.045)
[2017-11-17] MEDS ORDERED: GUAIFEN-CODEIN118 ML PO (13:45)
[2017-11-17] MEDS ORDERED: LOPRESSOR50 M1 PO (13:47)
[2017-11-17] MEDS ORDERED: RITALIN PO (13:48)
[2017-11-17] MEDS ORDERED: LASIX40 MG PO (13:49)
[2017-11-17] MEDS ORDERED: JANUVIA100 MG PO (13:49)
[2017-11-17] MEDS ORDERED: POTASSIUM CHLO20 ME3 PO (13:51)
[2017-11-17] MEDS ORDERED: AMIODARONE HCL200 MG PO (19:57)
[2017-11-18] VITALS: BP 96/79
[2017-11-18 07:02] LABS: HEMATOCRIT 34.8 % (42.0-52.0); MEAN CELL VOLUME 89.7 fl (80.0-94.0); MEAN CORPUSCULAR HGB 28.4 pg (27.0-31.0); MEAN CORPUSCULAR HGB CONC 31.6 g/dl (33.0-37.0); MEAN PLATELET VOLUME 9.6 fl (9.6-12.3); PLATELET COUNT AUTOMATED 204 10*3/uL (130-400); RED BLOOD COUNT 3.88 10*6/uL (4.50-5.90); RED CELL DISTRI WIDTH 14.4 % (0-14.5); WHITE BLOOD COUNT 7.6 10*3/uL (4.8-10.8)
[2017-11-18 07:16] LABS: ALBUMIN 3.3 gm/dl (3.1-4.5); BUN 30 mg/dl (7-24); CHLORIDE 106 mmol/L (98-107); CHOLESTEROL 164 mg/dL (<200); CREATININE 1.23 mg/dL (0.70-1.30); FREE T4 1.11 ng/dl (0.76-1.46); PHOSPHOROUS 2.9 mg/dL (2.5-4.9); POTASSIUM 4.5 mmol/L (3.5-5.1); SGOT/AST 21 IU/L (3-35); SGPT/ALT 25 U/L (12-78); SODIUM 140 mmol/L (136-145); TRIGLYCERIDES 39 mg/dl (<150); VLDL CHOLESTEROL 8 mg/dL (6-40)
[2017-11-18 07:24] LABS: ALKALINE PHOSPHATASE 96 U/L (45-117); HDL CHOLESTEROL 54 mg/dl (40-60); LDL CHOLESTEROL 102 mg/dL (9-159)
[2017-11-18 07:46] LABS: ACT PARTIAL THROMBO TIME 33.3 SECONDS (20.8-31.5); INTERNATIONAL NORM RATIO 1.7 (2.0-3.5); PLATELET SUFFICIENCY NORMAL (NORMAL); TOTAL CELLS COUNTED 100 #CELLS
[2017-11-18 08:00] VITALS: BP 146/88
[2017-11-18 16:00] VITALS: BP 130/85
[2017-11-18 20:00] VITALS: BP 135/81
[2017-11-19] VITALS: BP 127/71
[2017-11-19 08:00] VITALS: BP 156/81
[2017-11-19 12:00] VITALS: BP 122/53
== END 2017-11-19 15:03 | disposition home or self-care (01) | DRG 303 ==
LOC: ED 09:26 → 5E 10:54 → EDHOLD 10:54 → 5E 11:02
PROVIDERS: Emergency Medicine; Hospitalist
PROC: 4A02XM4 Measurement of Cardiac Total Activity, External Approach (ICD-10-PCS; principal; 2017-11-18)
PROC: 3E073KZ Introduction of Other Diagnostic Substance into Coronary Artery, Percutaneous Approach (ICD-10-PCS; principal; 2017-11-18)
DX: I25.10 Atherosclerotic heart disease of native coronary artery without angina pectoris (principal); E66.01 Morbid (severe) obesity due to excess calories; D64.9 Anemia, unspecified; I48.91 Unspecified atrial fibrillation; E11.9 Type 2 diabetes mellitus without complications; I50.9 Heart failure, unspecified; I11.0 Hypertensive heart disease with heart failure; G25.81 Restless legs syndrome; E78.5 Hyperlipidemia, unspecified; M19.91 Primary osteoarthritis, unspecified site; J44.9 Chronic obstructive pulmonary disease, unspecified; I87.2 Venous insufficiency (chronic) (peripheral); G47.33 Obstructive sleep apnea (adult) (pediatric); Z88.1 Allergy status to other antibiotic agents; Z88.0 Allergy status to penicillin; Z88.8 Allergy status to other drugs, medicaments and biological substances; Z68.35 Body mass index [BMI] 35.0-35.9, adult; Z91.09 Other allergy status, other than to drugs and biological substances; Z79.899 Other long term (current) drug therapy; Z90.49 Acquired absence of other specified parts of digestive tract; Z98.42 Cataract extraction status, left eye; Z98.41 Cataract extraction status, right eye; Z87.891 Personal history of nicotine dependence; Z82.49 Family history of ischemic heart disease and other diseases of the circulatory system; Z83.3 Family history of diabetes mellitus

== ENCOUNTER → 2017-12-06 | Outpatient (CLI) | payer MEDICARE, MEDICAID ==
[~2017-12-06] MED LIST changes: +GUAIFEN-CODEIN118 ML PO; +POTASSIUM CHLO20 ME3 PO; +RITALIN PO
== END | disposition home or self-care (01) ==
LOC: RAD 16:06
DX: M70.21 Olecranon bursitis, right elbow (principal)

== ENCOUNTER 2017-12-15 13:20 | Inpatient (IN) | payer MEDICARE, MEDICAID ==
[~2017-12-15] VITALS: Ht 193 cm; Wt 134.9 kg
[2017-12-15 13:40] VITALS: BP 156/91
[2017-12-15] MEDS ORDERED: TYLENOL325 M2 PO (13:54)
[2017-12-15] MEDS ORDERED: TOPICORT60 GM T (13:55)
[2017-12-15] MEDS ORDERED: METFORMIN500 MG PO (13:56)
[2017-12-15] MEDS ORDERED: PROVENTIL HFA6.7 GM INH (13:57)
[2017-12-15] MEDS ORDERED: DUONEB 3 MG/3 ML3 M1 INH (13:57)
[2017-12-15] MEDS ORDERED: METOPROLOL TART50 M1 PO (13:59)
[2017-12-15] MEDS ORDERED: MIRALAX17 GM PO (14:00)
[2017-12-15 14:29] LABS: BASO # 0.1 10*3/uL (0.0-0.1); BASO % 0.8 % (0.0-1.0); EOS # 0.2 10*3/uL (0.0-0.4); EOS % 3.6 % (1.0-4.0); HEMATOCRIT 35.6 % (42.0-52.0); HEMOGLOBIN 11.2 g/dl (14.0-18.0); LYMPH # 1.1 10*3/uL (1.3-4.4); LYMPH % 16.3 % (27.0-41.0); MEAN CELL VOLUME 90.8 fl (80.0-94.0); MEAN CORPUSCULAR HGB 28.6 pg (27.0-31.0); MEAN CORPUSCULAR HGB CONC 31.5 g/dl (33.0-37.0); MEAN PLATELET VOLUME 9.6 fl (9.6-12.3); MONO # 0.6 10*3/uL (0.1-1.0); MONO % 9.4 % (3.0-9.0); NEUT # 4.6 10*3/uL (2.3-7.9); NEUT % 68.8 % (47.0-73.0); PLATELET COUNT AUTOMATED 230 10*3/uL (130-400); RED BLOOD COUNT 3.92 10*6/uL (4.50-5.90); RED CELL DISTRI WIDTH 14.8 % (0-14.5); WHITE BLOOD COUNT 6.6 10*3/uL (4.8-10.8)
[2017-12-15 14:38] LABS: ACT PARTIAL THROMBO TIME 40.4 SECONDS (20.8-31.5); INTERNATIONAL NORM RATIO 2.4 (2.0-3.5)
[2017-12-15 14:45] LABS: ALBUMIN 3.5 gm/dl (3.1-4.5); CREATININE 1.43 mg/dL (0.70-1.30); PHOSPHOROUS 2.5 mg/dL (2.5-4.9); POTASSIUM 4.5 mmol/L (3.5-5.1); TOTAL PROTEIN 7.2 gm/dL (6.4-8.2)
[2017-12-15 16:00] VITALS: BP 128/81
[2017-12-15 20:00] VITALS: BP 135/71
[2017-12-16 00:34] VITALS: BP 141/47
[2017-12-16 06:22] LABS: BASO % 0.6 % (0.0-1.0); EOS # 0.2 10*3/uL (0.0-0.4); EOS % 3.8 % (1.0-4.0); HEMATOCRIT 33.1 % (42.0-52.0); HEMOGLOBIN 10.1 g/dl (14.0-18.0); LYMPH % 19.2 % (27.0-41.0); MEAN CELL VOLUME 91.9 fl (80.0-94.0); MEAN CORPUSCULAR HGB 28.1 pg (27.0-31.0); MEAN CORPUSCULAR HGB CONC 30.5 g/dl (33.0-37.0); MEAN PLATELET VOLUME 9.4 fl (9.6-12.3); MONO # 0.5 10*3/uL (0.1-1.0); MONO % 8.9 % (3.0-9.0); NEUT # 3.5 10*3/uL (2.3-7.9); NEUT % 66.7 % (47.0-73.0); PLATELET COUNT AUTOMATED 198 10*3/uL (130-400); RED CELL DISTRI WIDTH 14.7 % (0-14.5); WHITE BLOOD COUNT 5.3 10*3/uL (4.8-10.8)
[2017-12-16 06:48] LABS: CREATININE 1.46 mg/dL (0.70-1.30); POTASSIUM 4.8 mmol/L (3.5-5.1)
[2017-12-16 08:00] VITALS: BP 136/86
[2017-12-16 12:00] VITALS: BP 127/75
[2017-12-16 16:00] VITALS: BP 128/82
[2017-12-16 20:00] VITALS: BP 133/73
[2017-12-17 00:18] VITALS: BP 120/80
[2017-12-17 06:29] LABS: BASO # 0.1 10*3/uL (0.0-0.1); EOS # 0.2 10*3/uL (0.0-0.4); HEMATOCRIT 33.3 % (42.0-52.0); HEMOGLOBIN 10.3 g/dl (14.0-18.0); LYMPH # 1.1 10*3/uL (1.3-4.4); LYMPH % 19.8 % (27.0-41.0); MEAN CELL VOLUME 92.2 fl (80.0-94.0); MEAN CORPUSCULAR HGB 28.5 pg (27.0-31.0); MEAN CORPUSCULAR HGB CONC 30.9 g/dl (33.0-37.0); MEAN PLATELET VOLUME 9.6 fl (9.6-12.3); MONO # 0.5 10*3/uL (0.1-1.0); MONO % 8.7 % (3.0-9.0); NEUT # 3.8 10*3/uL (2.3-7.9); NEUT % 65.5 % (47.0-73.0); PLATELET COUNT AUTOMATED 180 10*3/uL (130-400); RED BLOOD COUNT 3.61 10*6/uL (4.50-5.90); RED CELL DISTRI WIDTH 14.9 % (0-14.5); WHITE BLOOD COUNT 5.8 10*3/uL (4.8-10.8)
[2017-12-17 06:44] LABS: BUN 24 mg/dl (7-24); CHLORIDE 106 mmol/L (98-107); CREATININE 1.36 mg/dL (0.70-1.30); POTASSIUM 4.7 mmol/L (3.5-5.1); SODIUM 140 mmol/L (136-145)
[2017-12-17 08:00] VITALS: BP 122/86
[2017-12-17] MEDS ORDERED: DOXYCYCLINE100 M3 PO (10:26)
[2017-12-17 12:00] VITALS: BP 153/89
== END 2017-12-17 13:50 | disposition home or self-care (01) | DRG 603 ==
LOC: 5E 13:20
PROVIDERS: Student in an Organized Health Care Education/Training Program
DX: L02.413 Cutaneous abscess of right upper limb (principal); E11.22 Type 2 diabetes mellitus with diabetic chronic kidney disease; E11.65 Type 2 diabetes mellitus with hyperglycemia; I13.0 Hypertensive heart and chronic kidney disease with heart failure and stage 1 through stage 4 chronic kidney disease, or unspecified chronic kidney disease; I48.91 Unspecified atrial fibrillation; B95.61 Methicillin susceptible Staphylococcus aureus infection as the cause of diseases classified elsewhere; E66.01 Morbid (severe) obesity due to excess calories; G25.81 Restless legs syndrome; M70.31 Other bursitis of elbow, right elbow; D64.9 Anemia, unspecified; D72.810 Lymphocytopenia; E55.9 Vitamin D deficiency, unspecified; E78.5 Hyperlipidemia, unspecified; G47.33 Obstructive sleep apnea (adult) (pediatric); J44.9 Chronic obstructive pulmonary disease, unspecified; N18.3 Chronic kidney disease, stage 3 (moderate); R00.1 Bradycardia, unspecified; I87.2 Venous insufficiency (chronic) (peripheral); M19.90 Unspecified osteoarthritis, unspecified site; M81.0 Age-related osteoporosis without current pathological fracture; Z90.49 Acquired absence of other specified parts of digestive tract; Z87.891 Personal history of nicotine dependence; Z79.01 Long term (current) use of anticoagulants; Z68.36 Body mass index [BMI] 36.0-36.9, adult; Z79.51 Long term (current) use of inhaled steroids; Z79.84 Long term (current) use of oral hypoglycemic drugs; Z79.899 Other long term (current) drug therapy; Z88.1 Allergy status to other antibiotic agents; Z88.0 Allergy status to penicillin; Z88.8 Allergy status to other drugs, medicaments and biological substances; Z91.048 Other nonmedicinal substance allergy status; Z82.49 Family history of ischemic heart disease and other diseases of the circulatory system; Z82.3 Family history of stroke

== ENCOUNTER → 2017-12-23 | Outpatient (CLI) | payer MEDICARE, MEDICAID ==
[~2017-12-23] MED LIST changes: +MIRALAX17 GM PO; +PROVENTIL HFA6.7 GM INH; +TOPICORT60 GM T; +TYLENOL325 M2 PO
== END | disposition home or self-care (01) ==
LOC: WOUNDCARE 02:43
DX: S51.001A Unspecified open wound of right elbow, initial encounter (principal); S51.011A Laceration without foreign body of right elbow, initial encounter; E11.22 Type 2 diabetes mellitus with diabetic chronic kidney disease; I12.9 Hypertensive chronic kidney disease with stage 1 through stage 4 chronic kidney disease, or unspecified chronic kidney disease; N18.3 Chronic kidney disease, stage 3 (moderate); E78.5 Hyperlipidemia, unspecified; Z90.49 Acquired absence of other specified parts of digestive tract; Z87.891 Personal history of nicotine dependence; Z79.01 Long term (current) use of anticoagulants; X58.XXXA Exposure to other specified factors, initial encounter; Y93.89 Activity, other specified; Y92.89 Other specified places as the place of occurrence of the external cause; Y99.8 Other external cause status

== ENCOUNTER → 2017-12-28 | Outpatient (CLI) | payer MEDICARE, MEDICAID | END | disposition home or self-care (01) | LOC: WOUNDCARE 04:13 | DX: S51.001D Unspecified open wound of right elbow, subsequent encounter (principal); E11.22 Type 2 diabetes mellitus with diabetic chronic kidney disease; I12.9 Hypertensive chronic kidney disease with stage 1 through stage 4 chronic kidney disease, or unspecified chronic kidney disease; N18.3 Chronic kidney disease, stage 3 (moderate); E11.628 Type 2 diabetes mellitus with other skin complications; E78.5 Hyperlipidemia, unspecified; Z79.01 Long term (current) use of anticoagulants; Z87.891 Personal history of nicotine dependence; X58.XXXD Exposure to other specified factors, subsequent encounter ==

== ENCOUNTER → 2018-02-01 | Outpatient (CLI) | payer MEDICARE, MEDICAID | END | disposition home or self-care (01) | LOC: WOUNDCARE 04:18 | DX: S10.8 Superficial injury of other specified parts of neck (principal); L02.11 Cutaneous abscess of neck; L57.0 Actinic keratosis; E11.22 Type 2 diabetes mellitus with diabetic chronic kidney disease; I12.9 Hypertensive chronic kidney disease with stage 1 through stage 4 chronic kidney disease, or unspecified chronic kidney disease; N18.3 Chronic kidney disease, stage 3 (moderate); E78.5 Hyperlipidemia, unspecified; Z87.891 Personal history of nicotine dependence; X58.XXXD Exposure to other specified factors, subsequent encounter ==

== ENCOUNTER 2018-03-22 23:08 | Emergency (ER) | payer MEDICARE, MEDICAID ==
[~2018-03-22] VITALS: Ht 193 cm; Wt 132.4 kg
[2018-03-22 23:15] VITALS: BP 132/66
== END 2018-03-23 00:57 | disposition home or self-care (01) ==
LOC: ED 23:08
DX: S81.812A Laceration without foreign body, left lower leg, initial encounter (principal); I13.0 Hypertensive heart and chronic kidney disease with heart failure and stage 1 through stage 4 chronic kidney disease, or unspecified chronic kidney disease; E11.22 Type 2 diabetes mellitus with diabetic chronic kidney disease; N18.3 Chronic kidney disease, stage 3 (moderate); I50.9 Heart failure, unspecified; J44.9 Chronic obstructive pulmonary disease, unspecified; E78.5 Hyperlipidemia, unspecified; E66.01 Morbid (severe) obesity due to excess calories; G47.33 Obstructive sleep apnea (adult) (pediatric); G25.81 Restless legs syndrome; I48.91 Unspecified atrial fibrillation; Z79.899 Other long term (current) drug therapy; Z87.891 Personal history of nicotine dependence; Z90.49 Acquired absence of other specified parts of digestive tract; Z98.890 Other specified postprocedural states; Z79.01 Long term (current) use of anticoagulants; Z88.0 Allergy status to penicillin; Z88.1 Allergy status to other antibiotic agents; Z88.6 Allergy status to analgesic agent; X58.XXXA Exposure to other specified factors, initial encounter; Y93.89 Activity, other specified; Y92.89 Other specified places as the place of occurrence of the external cause; Y99.9 Unspecified external cause status

== ENCOUNTER → 2018-08-23 | Outpatient (CLI) | payer MEDICARE, MEDICAID ==
[~2018-08-23] MED LIST changes: +GUAIFENESIN600 MG PO; +LOPRESSOR25 MG PO; +PROVIGIL100 MG PO; +VITAMIN D-32000 UNIT PO
[2018-08-23 14:53] LABS: BASO # 0.1 10*3/uL (0.0-0.1); BASO % 0.9 % (0.0-1.0); EOS # 0.2 10*3/uL (0.0-0.4); HEMOGLOBIN 9.4 g/dl (14.0-18.0); LYMPH # 0.8 10*3/uL (1.3-4.4); LYMPH % 11.8 % (27.0-41.0); MEAN CELL VOLUME 89.9 fl (80.0-94.0); MEAN CORPUSCULAR HGB 27.2 pg (27.0-31.0); MEAN CORPUSCULAR HGB CONC 30.3 g/dl (33.0-37.0); MEAN PLATELET VOLUME 9.5 fl (9.6-12.3); MONO # 0.5 10*3/uL (0.1-1.0); MONO % 6.5 % (3.0-9.0); NEUT # 5.3 10*3/uL (2.3-7.9); NEUT % 76.8 % (47.0-73.0); PLATELET COUNT AUTOMATED 243 10*3/uL (130-400); RED BLOOD COUNT 3.45 10*6/uL (4.50-5.90); WHITE BLOOD COUNT 6.9 10*3/uL (4.8-10.8)
[2018-08-23 14:56] LABS: ALBUMIN 3.4 gm/dl (3.1-4.5); CREATININE 1.46 mg/dL (0.70-1.30); POTASSIUM 4.4 mmol/L (3.5-5.1); TOTAL PROTEIN 6.9 gm/dL (6.4-8.2)
[2018-08-24 07:07] LABS: TOTAL PROTEIN, SERUM 6.3 g/dL (6.0-8.5)
[2018-08-24 16:10] LABS: A/G RATIO 1.1 (0.7-1.7); ALBUMIN 3.3 g/dL (2.9-4.4); ALPHA-1-GLOBULIN 0.2 g/dL (0.0-0.4); ALPHA-2-GLOBULIN 0.7 g/dL (0.4-1.0); BETA GLOBULIN 1.1 g/dL (0.7-1.3); GAMMA GLOBULIN 0.9 g/dL (0.4-1.8); M-SPIKE Not Observed g/dL (Not Observed)
== END | disposition home or self-care (01) ==
LOC: LAB 13:42
PROVIDERS: Psychiatry & Neurology Neurology
DX: M51.36 Other intervertebral disc degeneration, lumbar region (principal); M51.06 Intervertebral disc disorders with myelopathy, lumbar region; R26.9 Unspecified abnormalities of gait and mobility; I48.91 Unspecified atrial fibrillation; Z79.899 Other long term (current) drug therapy

== ENCOUNTER → 2018-12-05 | Outpatient (CLI) | payer MEDICARE, MEDICAID ==
--- NOTE | ~2018-12-05 | HM ---
[place], [place] HOLTER MONITOR REPORT [id number] UN[facility] #: [id number] ROOM: DOCTOR: IRMA CRAFT MD BIRTHDATE: [birth year] DOS: HOLTER MONITOR This is a 48-hour Holter monitor, so the monitoring was done for 47 hours and 59 minutes. Average heart rate was 67 beats per minute. Minimum heart rate was 45 beats per minutes and maximum heart rate was 105 beats per minute. Ventricular ectopic activity consisted of 785 beats of which 3 were in triplets, 84 were in couplets and 457 were in single PVCs. Then, the patient had 90 episodes of atrial fibrillation with a total time of 47 hours and 25 minutes, representing 99.4% of the total beats. Atrial fibrillation with great fastest ventricular response was 188 beats per minute. IMPRESSION: 1. Underlying rhythm is atrial fibrillation. 2. Maximum heart rate was 188 beats per minute. 3. We will follow the patient in the office and discussed the Holter monitor with him. IRMA CRAFT MD CM:HOLTER:HOLTER MONITOR REPORT 0937 1136 IRMA CRAFT MD
[2018-12-05 11:16] LABS: CREATININE 1.45 mg/dL (0.70-1.30); PHOSPHOROUS 2.7 mg/dL (2.5-4.9); POTASSIUM 4.5 mmol/L (3.5-5.1)
[2018-12-05 12:08] LABS: VITAMIN D, 25-HYDROXY 46.3 ng/mL (30-100)
[2018-12-05 12:09] LABS: PTH INTACT 58.2 pg/mL (18.5-88.0)
[2018-12-05 14:12] LABS: BILIRUBIN NEGATIVE (NEGATIVE); BLOOD NEGATIVE (NEGATIVE); CLARITY CLEAR (CLEAR); COLOR YELLOW (YELLOW); GLUCOSE NEGATIVE (NEGATIVE); KETONE NEGATIVE (NEGATIVE); LEUKO ESTERASE NEGATIVE (NEGATIVE); NITRITE NEGATIVE (NEGATIVE)
[2018-12-05 14:22] LABS: BACTERIA 1+; MUCOUS 2+
[2018-12-05 14:23] LABS: WBC 0-2 wbc/hpf (0-5)
[2018-12-06 11:05] LABS: CREATININE,URINE 125.4 mg/dL (Not Estab.); MICRO ALBUMIN/CRE RATIO 49.6 (0.0-30.0)
== END | disposition home or self-care (01) ==
LOC: US 11-29 13:00 → CARD 09:30 → US 13:00
PROVIDERS: Internal Medicine Nephrology
DX: N18.3 Chronic kidney disease, stage 3 (moderate) (principal); N28.1 Cyst of kidney, acquired; R00.2 Palpitations; I48.2 Chronic atrial fibrillation; M79.89 Other specified soft tissue disorders

== ENCOUNTER → 2018-12-06 | Outpatient (CLI) | payer MEDICARE, MEDICAID | END | disposition home or self-care (01) | LOC: US 01:22 | DX: N28.1 Cyst of kidney, acquired (principal); D73.4 Cyst of spleen; N18.3 Chronic kidney disease, stage 3 (moderate); R60.0 Localized edema; M79.89 Other specified soft tissue disorders; I48.2 Chronic atrial fibrillation ==

== ENCOUNTER → 2019-05-09 | Outpatient (CLI) | payer MEDICARE, MEDICAID | END | disposition home or self-care (01) | LOC: RAD 10:11 | DX: I11.0 Hypertensive heart disease with heart failure (principal); I50.31 Acute diastolic (congestive) heart failure; E11.9 Type 2 diabetes mellitus without complications; J44.9 Chronic obstructive pulmonary disease, unspecified; J45.909 Unspecified asthma, uncomplicated ==

== ENCOUNTER 2019-08-03 13:59 | Inpatient (IN) | payer MEDICARE, MEDICAID ==
[~2019-08-03] VITALS: Ht 193 cm; Wt 108.6 kg
--- NOTE | ~2019-08-03 | CON ---
[place], [place] REPORT OF CONSULTATION NAME: BIJAL LEES [facility] #: [id number] UNIT #: [id number] ROOM: 510 DOCTOR: ASHUTOSH NJ MD BIRTHDATE: [birth year] DOS: 08/06/2019 PULMONARY CONSULTATION EVALUATION AND MANAGEMENT CONSULTATION REQUESTED BY: Dr. Bharat Soto. REASON FOR CONSULTATION: For assessment of mucus plugging of the airway, coughing and other symptoms. HISTORY OF PRESENT ILLNESS: This is an 79-year-old white male patient who has not been seen in the office regular basis for several years, but known to me from the past. He has been admitted to the hospital under care of his primary care physician, Dr. Bharat Soto, 08/03/2019. The patient came into the hospital. The patient has been reporting symptoms of progressive sputum expectoration noted very, which has worsened recently. The patient stated he has been noted with long-term coughing, sputum expectoration. He was seen in the office of primary care physician and advised hospitalization on 08/03/2019. He was also complaining of symptoms of shortness of breath as well. The patient was also reported increased edema in lower extremities as well. He denies symptoms of chest pain. The patient does have some symptoms of wheezing as well. There were no symptoms of chest pain. REVIEW OF SYSTEMS: CONSTITUTIONAL SYMPTOMS: Fatigue and tiredness, which was noted without any fever or chills. EYES: Denies any burning, redness, or tenderness. EARS, NOSE, THROAT SYMPTOMS: No sore throat, hoarseness, otalgia, postnasal drainage or epistaxis. CARDIOVASCULAR: History of chronic lymphedema of the lower extremity with intermittent edema of lower extremities, dated no symptoms of palpitation, angina pain. GASTROINTESTINAL SYMPTOMS: Denies dysphagia, or abnormal weight loss, hematemesis, melena, or hematochezia. GENITOURINARY SYMPTOMS: No dysuria, suprapubic pain, or hematuria. MUSCULOSKELETAL: No acute joint pain, redness, or tenderness. SKIN: Denies any new lesions or rashes. Chronic venous stasis pigmentation dryness of the lower extremities were known. CENTRAL NERVOUS SYSTEM: No dizziness, headache, diplopia, syncopal episodes. Remaining systems were reviewed. They were noted all negative. PAST MEDICAL HISTORY: 1. History of longstanding disease. 2. Degenerative arthritis. 3. Hyperlipidemia. 4. Essential hypertension. 5. Moderate to severe obesity. 6. Obstructive sleep apnea, nonadherent with treatment. 7. Restless leg syndrome. 8. Osteoporosis. [place], [place] REPORT OF CONSULTATION NAME: BIJAL LEES UNIT #: [id number] ROOM: [facility] DOCTOR: KARINA CARTY MD,[facility] BIRTHDATE: [birth year] 9. Type 2 diabetes mellitus. 10. History of congestive heart failure with a reduced ejection fraction. 11. Atrial fibrillation, on chronic anticoagulation is permanent atrial fibrillation. PAST SURGICAL HISTORY: Reported as: 1. Partial colectomy. 2. Cardiac catheterization. 3. Cholecystectomy. 4. Polypectomy with colonoscopy. SOCIAL HISTORY: The patient lives at home. Denies history of alcohol use or illicit drug use. Tobacco use noted started younger age, a pack of cigarettes per day, discontinued in 1969. FAMILY HISTORY: The patient's father a 77-year-old, complication related to heart disease. Mother is also , at 70 years old, complications of intracerebral hemorrhage. HOME MEDICATIONS: Listed as use of Tylenol, amiodarone, Coreg, vitamin D, doxycycline, Advair, Flonase, Lasix, Amaryl, Mucinex, DuoNeb, Januvia, Flomax and Coumadin. CURRENT MEDICATIONS: Coumadin, Flomax, vitamin D, MiraLax, potassium chloride, Januvia, Amaryl, Coreg, amiodarone, Mucinex, Solu-Medrol 40 mg IV b.i.d., DuoNeb, doxycycline and other medications. DRUG ALLERGIES: Reported several allergies that include PENICILLIN, NIACIN, NEOSPORIN, ROCEPHIN, MEROPENEM, LEVAQUIN AND SEROQUEL. PHYSICAL EXAMINATION: GENERAL: This is an 79-year-old male patient who has been currently noted to be awake and alert without any distress. Height of 6 feet 4 inches, weight of 272 pounds, BMI 33. VITAL SIGNS: For the patient recorded as a normal temperature in the past 4 days, respiratory rate 18-20, heart rate of 70-75, blood pressure of 120/74-128/72. Pulse ox saturation at rest on room air 97% saturation. HEENT: Head is atraumatic. Eyes: nonicterus. NECK: Supple. CARDIOVASCULAR: S1, S2 audible. LUNGS: Decreased breath sounds, but there is no wheezing or crackles heard. ABDOMEN: Soft, nontender and obese. EXTREMITIES: Noted chronic lymphedema changes. MUSCULOSKELETAL: Noted without any acute deformities. CENTRAL NERVOUS SYSTEM: General noted grossly intact. LABORATORY DATA: Assessed noted with a mucocele formation in the left lower lobe bronchi with some impaction of the right lower lobe bronchi as well. There were no discrete areas of pulmonary infiltration seen. There were no pleural effusions. Increased density reported ____. Differential diagnosis of [place], [place] REPORT OF CONSULTATION NAME: BIJAL LEES UNIT #: [id number] ROOM: 510 DOCTOR: KARINA CARTY MD,ASHUTOSH BIRTHDATE: [birth year] amiodarone therapy, chronic transfusions or hemochromatosis suggested by the radiologist report. CBC on 07/31/2019, WBC count 5.9, hemoglobin 9.2, platelet count was normal. PT/INR noted 3.2 on admission. CMP that was done on 08/03/2019, BUN 27, creatinine 1.47. Troponin patient circled 3 sets were normal. Chest x-ray that was done 08/03/2019 noted with a small area of atelectasis, infiltration of the left lower lobe. Culture of the sputum noted as light growth of Serratia marcescens, which are noted sensitive to multiple antibiotics. CBC on 08/06/2019, the patient noted hemoglobin 8.9, WBC normal, platelet count were normal. BMP: BUN 40, creatinine 1.61, recorded on today's labs. Stool for occult blood was noted as positive. CMP on admission, BUN 27 at that time, creatinine 1.47 noted. IMPRESSION: 1. The patient was has been currently noted with findings of acute exacerbation of chronic obstructive pulmonary disease, acute tracheobronchitis, mucus impaction and mucocele formation in the right lower lobe, ____ gram-negative infection. Copious amount of thick green secretion production still noted by the patient. He has been collecting in the cough. Seen at the bedside. Possibly bronchiectasis would be considered because of the lack off the high resolution images bronchiectasis diagnosis cannot be confirmed. 2. Chronic moderate obesity. 3. Obstructive sleep apnea, nonadherent with treatment. 4. Chronic anticoagulation with Coumadin fluid was also known. 5. Anemia. Stool for occult blood was noted positive. Exclude GI tract bleeding. PLAN OF THERAPY: The patient was recommended bronchoscopy that will help to resolve the patient's current mucocele and removal of the mucus impaction, especially in the left lower lobe. Antibiotic based on the current culture results. Bronchodilators were continued. Continue current dose of steroids. Other therapy, plan of management. Additional treatment changes will be recommended based on the progression of his illness. The patient was agreeable for the bronchoscopy. Coumadin has been placed on hold to minimize the bleeding related to the bronchoscopy. Supportive care, other therapy, plan of management. At some point of time, the patient should have a high resolution CT scan of the chest to exclude bronchiectasis because of history of chronic sputum expectoration, which is noted long-term for several months or over a year. Thank you for allowing me to participate in care of this patient. [place], [place] REPORT OF CONSULTATION NAME: NABEELBIJAL Taye UNIT #: [id number] ROOM: [facility] DOCTOR: ASHUTOSH NJ MD BIRTHDATE: [birth year] ASHUTOSH COLLINS MD CM:CONSTR:REPORT OF CONSULTATION 1407 08/06/19 [id number] interface
--- NOTE | ~2019-08-03 | PROC NOTE ---
[place], [place] PROCEDURE NOTE [id number] UNIT #: [id number] ROOM: 510 DOCTOR: KARINA CARTY MD,ASHUTOSH BIRTHDATE: [birth year] DOS: 08/07/2019 BRONCHOSCOPY REPORT PREOPERATIVE DIAGNOSES: Severe cough with mucocele formation and obstruction of the distal endobronchial subsegment from the mucopurulent material. POSTOPERATIVE DIAGNOSES: Evidence of nodule noted multiple in the tracheal lumen with the differential diagnosis consideration for amyloidosis as well as tracheopathia osteoplastica and possibility of malignancy cannot be excluded. IDENTIFICATION: Diffuse mucus impaction of the airways noted bilaterally mainly lower lobe bronchial opening of the right and the left side. PROCEDURE DESCRIPTION: Informed consent was obtained for the patient. The patient brought to the OR and placed in supine position. Conscious sedation was administered by the Anesthesia Department. After achieving the proper sedation, airway introduced into the mouth. Bronchoscope advanced to the airway into laryngeal area. The epiglottis and vocal cords were seen. The bronchoscope was advanced through the vocal cords into the tracheal lumen. Tracheal lumen noted multiple nodules formation in the tracheal lumen from the glottic area after the margarita. There were noted easy to bleed. Moderate amount of very purulent secretion present in the tracheal lumen, which was suctioned out with the help of normal saline wash. After that, the margarita noted sharp. The right upper, right middle, right lower, left upper, lingular lower lobe bronchi were all identified The patient was noted mainly thick green mucus causing impaction of the lower lobe bronchus bilaterally. All secretions suctioned out clear, half normal saline wash, sent for cultures. There were no obstructive lesions noted endobronchial subsegments. Procedure was well tolerated by the patient without any difficulty. Postoperative findings were discussed with the patient's sister in detail. At this time, no changes in treatment will be necessary. ASHUTOSH COLLINS MD CM:PROCNOTE:PROCEDURE NOTE [id number] ASHUTOSH CARTY MD
--- NOTE | ~2019-08-03 | PR ---
[place], [place] PROGRESS NOTE NAME: BIJAL LEES UNIT #: [id number] ROOM: 510 DOCTOR: ASHUTOSH NJ MD BIRTHDATE: [birth year] DOS: 08/08/2019 SUBJECTIVE: Bronchoscopy completed yesterday successfully without any complications. Minimal bleeding for this patient was noted. Biopsy of the tracheal abnormality was not done because of the patient's use of the Coumadin. He has not been noted symptoms of chest pain. Cough of the patient has been noted decreased significantly. The patient was brought to bronchoscopy. Denies symptoms of chest pain. OBJECTIVE: GENERAL: He was resting comfortably, sitting on the chair this morning of assessment. VITAL SIGNS: Noted with normal temperature, respiratory rate 20, heart rate 64, blood pressure 111/95 by the nursing staff. Pulse ox on room air 99% saturation. HEENT: Examination shows head was atraumatic. Eyes nonicterus. NECK: Supple. CARDIOVASCULAR: S1, S2 audible. LUNGS: Without any wheeze or crackles. ABDOMEN: Soft, nontender. Bowel sounds present. EXTREMITIES: No new change. LABORATORY DATA: The Gram stain noted many white blood cell with no microorganisms light growth of Gram-negative bacilli noted. Preliminary finding culture results were pending. CBC: WBC count 10.9, hemoglobin 9.0. BMP was noted BUN 46, creatinine 1.63. IMPRESSION: Acute tracheobronchitis, mucus impaction tracheal abnormality with possibility of amyloidosis and other abnormality, consider dictated in my bronchoscopy report yesterday. Possibility of malignancy of the patient cannot be excluded with metastasis, most likely would be considered unlikely because of lack of any known history of malignancy in any parts of the body. PLAN OF MANAGEMENT: Continue the patient's current therapy, plan of management for gram-negative bacilli bronchitis. The culture will be monitored to suggest any antibiotic changes accordingly. Continuation in the meantime, other therapy, plan of management, care plan treatment. Continue anticoagulation. Usual care. Outpatient bronchoscopy in the next week might be beneficial to reassess the trachea and biopsy to be done off any anticoagulants. [place], [place] PROGRESS NOTE NAME: BIJAL LEES UNIT #: [id number] ROOM: 510 DOCTOR: ASHUTOSH NJ MD BIRTHDATE: [birth year] ASHUTOSH COLLINS MD CM:FATUMA [id number] ASHUTOSH CARTY MD 08/08/19 1251 interface
--- NOTE | ~2019-08-03 | EKG ---
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
--- NOTE | ~2019-08-03 | EKG ---
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
--- NOTE | ~2019-08-03 | CON ---
[place], [place] REPORT OF CONSULTATION NAME: BIJAL LEES [facility] #: [id number] UNIT #: [id number] ROOM: 510 DOCTOR: JUSTUS CHRISTOPHER MDANASTASIABRENDA BIRTHDATE: [birth year] DOS: 08/07/2019 GASTROENDOSCOPIC CONSULTATION REPORT HISTORY OF PRESENT ILLNESS This is an 87-year-old patient who has presented with multiple medical problems, among which has been his anemia, edema, scrotal edema and Coumadin toxicity and a drop in H and H and guaiac positivity and I have been asked for assessment of the patient in this regard. His latest laboratory assessment shows his CBC: H and H of 9 and 31, which was status post reassessment and platelets has been 340. His basic metabolic, elevated BUN and creatinine and electrolytes has been balanced. He has been short of breath. Pulmonary medicine has been addressing his issues as well. PAST MEDICAL HISTORY: Sleep apnea, systemic hypertension, osteoporosis, lower extremity edema, diabetes mellitus, degenerative joint disease, congestive heart failure. PAST SURGICAL HISTORY: Cholecystectomy, partial colectomy. SOCIAL HISTORY: Nonsmoker, nonalcohol consumer, residing in his own trailer, he says. FAMILY HISTORY: Noncontributory. MEDICATION: List has been reviewed including Coumadin, which was a level of toxicity and has been corrected. ALLERGIES: TO MULTI-MEDICATIONS, LEVAQUIN, SEROQUEL, NIACIN, PENICILLIN, NEOSPORIN, ROCEPHIN, MEROPENEM. REVIEW OF SYSTEMS: In general: HEENT: Denies double vision or blurred vision. RESPIRATORY: Admit shortness of breath. CARDIOVASCULAR: Denied chest pain, periodic cough. DIGESTIVE SYSTEM: No hematemesis, no hematochezia. NEUROMUSCULOSKELETAL: Edema of lower extremities, difficulty ambulation. PHYSICAL EXAMINATION: GENERAL: Still in bed in some difficulty in managing himself in bed. HEENT: Head normocephalic, nontraumatic. Mouth and buccal mucosa benign. NECK: Supple, no thyromegaly, no cervical lymphadenopathy. CHEST: Symmetric anatomy, equal expansion, COPD pattern. HEART: Normal sinus rhythm, no gallop, no murmur. ABDOMEN: Obese, large, soft. No hepato-organomegaly can be elicited. EXTREMITIES: Stasis dermatitis, left greater than right. NEUROLOGIC: Alert and appears to be oriented. LABORATORY DATA: Labs reviewed. Records reviewed. IMPRESSION: Anemia, chronic renal insufficiency, systemic hypertension, [place], [place] REPORT OF CONSULTATION NAME: BIJAL LEES UNIT #: [id number] ROOM: 510 DOCTOR: ELSA CHRISTOPHER MD BIRTHDATE: [birth year] diabetes mellitus, osteoporosis, all has been recognized, otherwise, as dictated in past medical and surgical history. Coumadin toxicity has been already addressed and the patient is already on regular diet. He is having shortness of breath right now and he is relatively comfortable except his shortness of breath, which has been addressed. He is status post bronchoscopy today and tracheobronchitis. Mucous plug has been addressed by Dr. Mcleod. PLAN AND DISCUSSION: I will be standing by to see if I would be available to where we can endoscopically assess. His INR has improved to 2.3 and records reviewed. ELSA CHRISTOPHER MD CM:CONSTR:REPORT OF CONSULTATION [id number] SAMUEL BARTH MIS.R
--- NOTE | ~2019-08-03 | PR ---
[place], [place] PROGRESS NOTE NAME: BIJAL LEES [facility] #: [id number] UNIT #: [id number] ROOM: 510 DOCTOR: KARINA CARTY MD,ASHUTOSH BIRTHDATE: [birth year] DOS: 08/07/2019 PULMONARY PROGRESS NOTE SUBJECTIVE: The patient noted comfortable at this time, resting on the bed. Plan for the bronchoscopy done today. Cough has been still noted with a copious amount of thick green sputum expectoration. The patient has not been noted with symptoms of hemoptysis. Denies symptoms of chest pain. Denies symptoms of fever or chills. Denies symptoms of pain of the lower extremity, chronic lymphedema changes are noted. Denies symptoms of headache or diplopia. Remaining systems were all reviewed with the patient, they were noted all negative. OBJECTIVE: GENERAL: The patient is comfortably lying in the bed this morning of assessment. VITAL SIGNS: For the patient, which are recorded this morning at 8 o'clock normal temperature, respiratory rate 14, heart rate 70, blood pressure 140/77. Pulse oxygen saturation recorded on room air 98% saturation. HEENT: Examination shows head was atraumatic. Eyes nonicterus. NECK: Supple. CARDIOVASCULAR: S1, S2 is audible. LUNGS: Noted with decreased breath in the lungs bilaterally. Occasional crackles. There was no wheezing. ABDOMEN: Soft with chronic obesity. EXTREMITIES: The patient noted lymphedema changes. Chronic venous stasis pigmentation without any acute visible edema. MUSCULOSKELETAL: Without any acute deformities. CENTRAL NERVOUS SYSTEM: Intact. LABORATORY DATA: CBC this morning: WBC count 13.5, hemoglobin 9.7, hematocrit 31.8, platelet count was normal. BMP that was done this morning, BUN 50 and creatinine 1.62. IMPRESSION: 1. The patient with acute severe purulent tracheobronchitis with mucus impaction of the airways. 2. Acute exacerbation of chronic obstructive pulmonary disease as well. 3. Type 2 diabetes mellitus. 4. Chronic anticoagulation. 5. Permanent atrial fibrillation as well. 6. Increased BUN and creatinine. 7. Anemia with stool for positive occult blood. PLAN OF MANAGEMENT: Proceed with the fibrobronchoscopy as planned. Any additional treatment changes will need to be done for the patient will be made based on progression of the illness. Usual care, other supportive therapy, plan of management, care plan treatment. Bronchoscopy will be done. Change in treatment will be recommended based on the progression of the illness and after [place], [place] PROGRESS NOTE [id number] #: [id number] ROOM: [facility] DOCTOR: ASHUTOSH NJ MD BIRTHDATE: [birth year] bronchoscopy as necessary. ASHUTOSH COLLINS MD CM:PNTRANS [id number] 1304 ASHUTOSH CARTY MD 08/07/19 1302 interface
--- NOTE | ~2019-08-03 | EKG ---
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
--- NOTE | ~2019-08-03 | EKG ---
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
[2019-08-03 14:05] VITALS: BP 136/92
--- NOTE | 2019-08-03 14:05 | NUR ---
A 79, admitted to , under the services of IRMA Parisi MD with a diagnosis of COPD EXACERBATION. Chief complaint is SOB, SWELLING. Patient arrived via wheel chair from [place]. Monitor applied. Initial assessment completed. Vital signs taken and recorded. IRMA PARISI MD notified of admission to the unit. Orders received. See assessment for past medical history, medications and allergies. Patient and/or family oriented to unit. [facility]. Clothing/patient valuable form completed. ASHOK DEUTSCH
--- NOTE | 2019-08-03 14:15 | NUR ---
PT REFUSING PICS OF WOUND TO RT BUTTOCK.
[2019-08-03 15:22] LABS: BASO # 0.1 10*3/uL (0.0-0.1); BASO % 0.8 % (0.0-1.0); EOS # 0.2 10*3/uL (0.0-0.4); HEMATOCRIT 30.6 % (42.0-52.0); HEMOGLOBIN 9.2 g/dl (14.0-18.0); MEAN CELL VOLUME 94.2 fl (80.0-94.0); MEAN CORPUSCULAR HGB 28.3 pg (27.0-31.0); MEAN CORPUSCULAR HGB CONC 30.1 g/dl (33.0-37.0); MEAN PLATELET VOLUME 9.4 fl (9.6-12.3); MONO # 0.5 10*3/uL (0.1-1.0); MONO % 7.7 % (3.0-9.0); NEUT # 4.2 10*3/uL (2.3-7.9); NEUT % 70.7 % (47.0-73.0); PLATELET COUNT AUTOMATED 231 10*3/uL (130-400); RED BLOOD COUNT 3.25 10*6/uL (4.50-5.90); RED CELL DISTRI WIDTH 15.7 % (0-14.5); WHITE BLOOD COUNT 5.9 10*3/uL (4.8-10.8)
[2019-08-03 15:31] LABS: INTERNATIONAL NORM RATIO 3.2 (2.0-3.5)
[2019-08-03 15:39] LABS: ALBUMIN 3.1 gm/dl (3.1-4.5); BUN 27 mg/dl (7-24); CHLORIDE 108 mmol/L (98-107); CREATININE 1.47 mg/dL (0.70-1.30); POTASSIUM 4.3 mmol/L (3.5-5.1); SGOT/AST 15 IU/L (3-35); SGPT/ALT 16 U/L (12-78); SODIUM 141 mmol/L (136-145); TOTAL PROTEIN 6.7 gm/dL (6.4-8.2)
[2019-08-03 15:41] LABS: ALKALINE PHOSPHATASE 97 U/L (45-117)
[2019-08-03 15:47] LABS: TROPONIN I < 0.015 ng/ml (<0.045)
[2019-08-03 16:00] VITALS: BP 163/90
--- NOTE | 2019-08-03 16:11 | NUR ---
DR. LUCERO NOTIFIED OF NEW CONSULT. WILL SEE PT TOMORROW.
[2019-08-03] MEDS ORDERED: BREO ELLIPTA 21 EACH INH (16:18)
[2019-08-03] MEDS ORDERED: FLOMAX0.4 MG PO (16:19)
[2019-08-03] MEDS ORDERED: COUMADIN2 M1 PO (16:19)
[2019-08-03] MEDS ORDERED: CARVEDILOL6.25 MG PO (16:20)
[2019-08-03] MEDS ORDERED: AMARYL4 MG PO (16:20)
[2019-08-03] MEDS ORDERED: DOXYCYCLINE100 M3 PO (16:21)
[2019-08-03] MEDS ORDERED: COUMADIN1 M1 PO (16:23)
[2019-08-03 16:45] LABS: BILIRUBIN NEGATIVE (NEGATIVE); BLOOD NEGATIVE (NEGATIVE); CLARITY CLEAR (CLEAR); COLOR YELLOW (YELLOW); GLUCOSE NEGATIVE (NEGATIVE); KETONE NEGATIVE (NEGATIVE); LEUKO ESTERASE NEGATIVE (NEGATIVE); NITRITE NEGATIVE (NEGATIVE); PH 7.5 (5.0-9.0); UROBILINOGEN 0.2 E.U./dl (0.2-1.0)
[2019-08-03 16:54] LABS: MUCOUS 1+
[2019-08-03 20:00] VITALS: BP 139/70
[2019-08-04] VITALS: BP 99/61
--- NOTE | 2019-08-04 06:18 | NUR ---
BIJAL LEES [id number] Please refer to the physician's history and physical for past medical history, comorbid conditions, and allergies. Diagnosis: SCROTAL EDEMA CO UMADIN TOXICITY Nicolas Score: 17,AT RISK WOUND DESCRIPTIONS: Wound Number: 1 Location of the wound: right buttocks Type of wound: stage 2 Thickness: Partial Size: 0.5cm x 0.5cm x 0.1cm Tunneling: none Undermining: none Sinus Tract: none Presence of Exudate: Serosanguineous Amount: Light Color: Red Odor: None Periwound Skin Appearance: Normal Wound edges: approximated Pain (associated with wound): none at time of assessment How does patient state this happened? pt stated he has this area for a little bit he states he lives with sister and she is not allowed to look back there. He stated he has help come in and would prefer they not look their either. He states he is up to his chair most of the time. He stated that he will care for this area at home by himself and if it is gets worse he will let Dr. Soto know. Surface the patient is resting on: Position Pro SKIN PREVENTION RECOMMENDATION: 1. Pressure redistribution support surface as appropriate 2. Elevate heels 3. Remove boots/TEDS every shift and reapply 4. Head of bed 30 degrees as tolerated 5. Assess nutrition and hydration 6. Manage moisture 7. Avoid the use of containment devices while in bed 8. Use absorptive products on surfaces limit layers of linens on bed 9. Turn and reposition every 1-2 hours in bed and every 1 hour in chair as tolerated 10. Weight shifts every 15 minutes while up in chair 11. Offloading with pillows or device to keep heels elevated off bed 12. Monitor skin at least every shift 13. Inspect under medical devices twice a day WOUND TREATMENT RECOMMENDATIONS: Continue stage 2 guidelines: Cleanse right buttocks with nss and apply sureprep around the wound versatel to wound bed and apply hydrogel to wound bed and cover with optifoam gentle. Wheelchair cushion when oob.
[2019-08-04 06:20] LABS: BASO % 0.2 % (0.0-1.0); CREATININE 1.64 mg/dL (0.70-1.30); EOS % 0.6 % (1.0-4.0); HEMATOCRIT 31.2 % (42.0-52.0); HEMOGLOBIN 9.5 g/dl (14.0-18.0); LYMPH # 0.5 10*3/uL (1.3-4.4); LYMPH % 9.2 % (27.0-41.0); MEAN CELL VOLUME 93.4 fl (80.0-94.0); MEAN CORPUSCULAR HGB 28.4 pg (27.0-31.0); MEAN CORPUSCULAR HGB CONC 30.4 g/dl (33.0-37.0); MEAN PLATELET VOLUME 9.5 fl (9.6-12.3); MONO # 0.1 10*3/uL (0.1-1.0); MONO % 1.1 % (3.0-9.0); NEUT # 4.7 10*3/uL (2.3-7.9); NEUT % 88.3 % (47.0-73.0); PHOSPHOROUS 2.9 mg/dL (2.5-4.9); PLATELET COUNT AUTOMATED 255 10*3/uL (130-400); POTASSIUM 4.5 mmol/L (3.5-5.1); RED BLOOD COUNT 3.34 10*6/uL (4.50-5.90); RED CELL DISTRI WIDTH 15.4 % (0-14.5); WHITE BLOOD COUNT 5.3 10*3/uL (4.8-10.8)
[2019-08-04 06:43] LABS: ACT PARTIAL THROMBO TIME 54.4 SECONDS (20.0-32.1); INTERNATIONAL NORM RATIO 2.7 (2.0-3.5)
--- NOTE | 2019-08-04 07:15 | NUR ---
PATIENT CALLED THIS RN INTO ROOM. PATIENT PULLED THE TAPE OFF HIS RIGHT ARM AFTER LAB HAD DRAWN HIS BLOOD WORK THIS AM AND CAUSED A SKIN TEAR. BLEED WAS STOPPED PRIOR TO THIS RN COMING INTO ROOM. NOTIFIED WOUND CARE NURSE OF THIS.
[2019-08-04 07:39] LABS: VITAMIN D, 25-HYDROXY 32.2 ng/mL (30-100)
--- NOTE | 2019-08-04 07:55 | NUR ---
SPOKE WITH DR LEVIN REGARDING PT SKIN TEAR TO RIGHT ANTECUBITAL OBTAINED VIA PT RIPPING TAPE OFF OF ARM SHORTLY AFTER HAVING LABS DRAWN THIS MORNING. NEW ORDERS OBTAINED TO PLACE WOUND ORDER FOR SKIN TEARS PER PROTOCOL. WILL PLACE ORDERS PER PHYSICIAN REQUEST. WILL NOTIFY PT OF NEW ORDERS.
--- NOTE | 2019-08-04 08:10 | NUR ---
IN PATIENT'S ROOM AT THIS TIME. PT SITTING UP IN CHAIR TALKING WITH RESPIRATORY THERAPIST. PT ALERT ORIENTED AND PLEASANT, CLEAR APPROPRIATE SPEECH. RESPIRATIONS EASY AND UNLABORED ON ROOM AIR. NO COMPLAINTS VOICED AT THIS TIME. SAFETY MEASURES/BODY ALARM IN PLACE. CALL LIGHT IN REACH.
--- NOTE | 2019-08-04 08:15 | NUR ---
NURSING CONTINUOUS PROCESS COFFEE ROASTER NOTIFIED OF SKIN TEAR.
--- NOTE | 2019-08-04 08:50 | NUR ---
PHYSICAL THERAPY Pt pleasantly sitting at bedside chair upon therapist entry. Pt reports he does not have any therapy needs, "aint nothing you can do for me." Pt reports he has tried therapy before and he is unable to do the exercises because of his legs. Reports getting around in a wheelchair at home and being able to get up and go to the bathroom by himself. Pt refusing therapy at this time, orders will be cancelled. Thank you Tracy Lorenzana, PT, DPT
--- NOTE | 2019-08-04 09:00 | NUR ---
Account Engineer in to talk to patient. Patient states lives at home alone with his sister checking in on him. There are 0 steps in the home. There are 2 wheelchair ramps. Physician: Dr. Bharat Soto [facility] Home health services: none Patient's level of ADLs: MINIMAL ASSIST Patient has working utilities: yes DME: seated walker, wheelchair, O2 @ 2-3 L nc, portable O2 tanks, nebulizer, O2 supplier is an unknown company in [place] Follow-up physician's appointment after d/c: he prefers to make his own follow up appt after discharge Does patient want to access PORTAL?: no Discharge plan discussed with patient. He is sitting up in his bedside chair without distress noted. He lives at home alone with his sister checking in on him. He states he has a cleaning lady come on Mondays and . Discussed home health care services and he denies any other home needs. When medically stable he will be discharged to home. He states he [facility] or his sister for transportation home on discharge. He states his sister is his HPOA, Jarvis. JIE GUTIERREZ
--- NOTE | 2019-08-04 09:12 | NUR ---
Occupational Therapy evaluation offered but patient refused stating he did not need any OT. He has had therapy in the past and he does not feel he can benefit from any more therapy. OTR attempted to explain what OT could provide but patient reports he is independent in all ADL and that his sister and a cleaning lady assist with IADLs and patient uses a w/c in the home. Discharge OT referral per patient's pleasant refusal. Thank you Kelly Cintron OTR/sonny
--- NOTE | 2019-08-04 11:48 | NUR ---
Nutritional Support Services Note: Appetite is good for meals. Skin tear noted due to pulling off tape. Area on scrotum. Pt states he eats well and knows what he needs to do. Refuses supplement. Will provide a night snack. Grace Palomino Rdn Ld
[2019-08-04 12:00] VITALS: BP 119/60
--- NOTE | 2019-08-04 14:55 | NUR ---
Spoke to Sahil [facility] Art Tracer, in regards to services at home. Patient has emergency response button, a personal pet care associate on Mondays and for 3 hours from [facility] out of [place]. He has home delivered meals 14 meals a week but he wasn't needing that many so they are going to cut him back to 14 meals every 2 weeks. Lev's phone number is [phone]. Equipment at home includes O2 from [employer], rollator, nebulizer, wheelchair, and shower chair.
[2019-08-04 16:00] VITALS: BP 105/55
--- NOTE | 2019-08-04 16:00 | NUR ---
PT IV TO LEFT HAND FLUSHING WITH EASE, IV ANTIBIOTIC INFUSING AT THIS TIME. PT DENIES ANY DISTRESS. RESPIRATIONS EASY AND UNLABORED. PT EATING DINNER AT THIS TIME AND VISITING WITH SISTER. CALL LIGHT IN REACH.
--- NOTE | 2019-08-04 18:30 | NUR ---
ALL OTHER EVENING MEDICATIONS GIVEN AT THIS TIME. PT UP TO BATHROOM WITH WALKER AND ASSIST OF PATIENT ATTENDANT. PT STATES THAT HE FEELS THAT HE MAY HAVE A BOWEL MOVEMENT IN ORDER TO PROVIDE THE NEEDED STOOL SAMPLE.
[2019-08-04 20:00] VITALS: BP 111/57
--- NOTE | 2019-08-04 20:00 | NUR ---
PT SITTING UP IN CHAIR. RESP-EASY AND REGULAR. DRESSING RIGHT ARM D/I. NO C/O AT THIS TIME. CALL LIGHT IN REACH. SEE SHIFT ASSESMENT.
--- NOTE | 2019-08-04 22:00 | NUR ---
PT RESTING IN BED. TOLERATED ROUTINE MED WITH NO PROBLEM. BSG-123, SEE EMAR. CALL LIGHT IN REACH.
[2019-08-05] VITALS: BP 121/72
--- NOTE | 2019-08-05 00:25 | NUR ---
PT RESTING IN BED. RESP-EASY AND REGULAR. NO C/O AT THIS TIME. CALL LIGHT IN REACH. SEE SHIFT ASSESSMENT.
--- NOTE | 2019-08-05 06:00 | NUR ---
TOLERATING IV MEDICATIONS. CALL LIGHT IN REACH.
--- NOTE | 2019-08-05 06:17 | NUR ---
IV started right forearm with #22 angiocath after 1 attempts. The IV site was prepped with Chloraprep. Heparin lock attached. Sterile dressing applied. Patient tolerated precedure well. Procedure performed according to [facility] policy & procedure. YUMIKO COTTO
[2019-08-05 06:27] LABS: HEMOGLOBIN 8.6 g/dl (14.0-18.0); LYMPH # 0.6 10*3/uL (1.3-4.4); LYMPH % 7.8 % (27.0-41.0); MEAN CORPUSCULAR HGB 27.7 pg (27.0-31.0); MEAN CORPUSCULAR HGB CONC 30.7 g/dl (33.0-37.0); MEAN PLATELET VOLUME 9.9 fl (9.6-12.3); MONO # 0.1 10*3/uL (0.1-1.0); MONO % 1.6 % (3.0-9.0); NEUT # 6.7 10*3/uL (2.3-7.9); NEUT % 89.7 % (47.0-73.0); PLATELET COUNT AUTOMATED 261 10*3/uL (130-400); RED CELL DISTRI WIDTH 15.5 % (0-14.5); WHITE BLOOD COUNT 7.5 10*3/uL (4.8-10.8)
[2019-08-05 06:41] LABS: CREATININE 1.74 mg/dL (0.70-1.30); POTASSIUM 4.3 mmol/L (3.5-5.1)
[2019-08-05 06:45] LABS: MEAN CELL VOLUME 90.3 fl (80.0-94.0)
[2019-08-05 07:06] LABS: INTERNATIONAL NORM RATIO 2.4 (2.0-3.5)
[2019-08-05 08:00] VITALS: BP 118/70
--- NOTE | 2019-08-05 11:20 | NUR ---
REPORT RECEIVED. PT ALERT AND ORIENTED, RESPIRATIONS REGULAR. VOICES NO COMPLAINTS, CALL LIGHT IN REACH.
[2019-08-05 12:00] VITALS: BP 121/62
--- NOTE | 2019-08-05 13:30 | NUR ---
PT RESTING IN CHAIR AT THIS TIME. NO COMPLAINTS, CALL LIGHT IN REACH.
[2019-08-05 16:00] VITALS: BP 125/71
--- NOTE | 2019-08-05 16:30 | NUR ---
PT STATES THAT HE IS FEELING BETTER AT THIS TIME. "I CAN BREATHE EASIER" VOICES NO COMPLAINTS. CALL LIGHT IN REACH.
[2019-08-05 20:00] VITALS: BP 120/73
--- NOTE | 2019-08-05 20:07 | NUR ---
DR. COLLINS NOTIFIED OF CONSULT. NO NEW ORDERS AT THIS TIME.
--- NOTE | 2019-08-05 23:04 | NUR ---
24 HR chart check completed.
[2019-08-06] VITALS: BP 120/74
--- NOTE | 2019-08-06 01:37 | NUR ---
Patient sleeping. Respirations relaxed and easy. Siderails up X 2. [place] on. BED IN LOW POSITION, CALL LIGHT WITHIN REACH. EBENEZER LITTLE
[2019-08-06 06:23] LABS: HEMATOCRIT 29.2 % (42.0-52.0); HEMOGLOBIN 8.9 g/dl (14.0-18.0); MEAN CELL VOLUME 92.4 fl (80.0-94.0); MEAN CORPUSCULAR HGB 28.2 pg (27.0-31.0); MEAN CORPUSCULAR HGB CONC 30.5 g/dl (33.0-37.0); MEAN PLATELET VOLUME 9.8 fl (9.6-12.3); PLATELET COUNT AUTOMATED 269 10*3/uL (130-400); RED BLOOD COUNT 3.16 10*6/uL (4.50-5.90); RED CELL DISTRI WIDTH 15.3 % (0-14.5); WHITE BLOOD COUNT 9.1 10*3/uL (4.8-10.8)
[2019-08-06 06:48] LABS: INTERNATIONAL NORM RATIO 2.3 (2.0-3.5)
[2019-08-06 06:58] LABS: TOTAL CELLS COUNTED 100 #CELLS
[2019-08-06 07:02] LABS: PLATELET SUFFICIENCY NORMAL (NORMAL)
--- NOTE | 2019-08-06 07:30 | NUR ---
24 HOUR CHART CHECK COMPLETED
--- NOTE | 2019-08-06 08:20 | NUR ---
PATIENT ASSESSMENT COMPLETE AT THIS TIME WITHOUT INCIDENT, PATIENT DENIES ANY PAIN, CHEST PAIN OR SHORTNESS OF BREATH AT THIS TIME. PATIENT DOES HAVE A PRODUCTIVE COUGH FOR FOREMAN/GREEN SPUTUM. BLE 2+ EDEMA ALONG WITH SCROTUM. MEDICATIONS GIVEN WITHOUT INCIDENT. CALL LIGHT WITHIN REACH, WILL CONTINUE TO MONITOR.
[2019-08-06 09:37] LABS: CREATININE 1.61 mg/dL (0.70-1.30); POTASSIUM 4.2 mmol/L (3.5-5.1)
[2019-08-06 12:00] VITALS: BP 128/72
[2019-08-06 16:00] VITALS: BP 130/80
--- NOTE | 2019-08-06 16:50 | NUR ---
PATIENT IV OCCLUDED AND REMOVED. THREE NURSES ATTEMPTED TO ATTAIN IV ACCESS WITHOUT SUCCESS AT THIS TIME. AWAITING ANOTHER NURSE TO ATTEMPT.
--- NOTE | 2019-08-06 19:40 | NUR ---
24 HR chart check completed.
[2019-08-06 20:00] VITALS: BP 120/69
--- NOTE | 2019-08-06 20:05 | NUR ---
DR LUCERO HERE TO ASSESS PATIENT AND DISCUSS PLAN OF CARE
--- NOTE | 2019-08-06 21:00 | NUR ---
SITTING IN RECLINER WATCHING TV, NO DISTRESS NOTED. RESPIRATIONS EASY. LUNGS DIMINISHED WITH I&E WHEEZES. PULSE OX 98% RA. COUGH PRODUCTIVE FOR GREEN. BLE EDEMA NOTED L>R. CALL LIGHT WITHIN REACH. NO VOICED COMPLAINTS
--- NOTE | 2019-08-06 23:00 | NUR ---
IV ACCESS OBTAINED VIA US.
[2019-08-07] VITALS (9 sets, daily range): BP systolic 111–140; BP diastolic 59–84
--- NOTE | 2019-08-07 | NUR ---
AWAKE BUT DROWSY. RESPIRATIONS EASY. VSS. CALL LIGHT WITHIN REACH. NO VOICED COMPLAINTS
--- NOTE | 2019-08-07 06:00 | NUR ---
RESTED THROUGHOUT NIGHT WITH NO DISTRESS NOTED. RESPIRATIONS EASY. CALL LIGHT WITHIN REACH. NO VOICED COMPLAINTS THIS SHIFT. NPO STATUS MAINTAINED FOR BRONCH
[2019-08-07 06:51] LABS: BASO % 0.1 % (0.0-1.0); HEMATOCRIT 31.8 % (42.0-52.0); HEMOGLOBIN 9.7 g/dl (14.0-18.0); LYMPH # 0.7 10*3/uL (1.3-4.4); LYMPH % 5.3 % (27.0-41.0); MEAN CELL VOLUME 91.6 fl (80.0-94.0); MEAN CORPUSCULAR HGB CONC 30.5 g/dl (33.0-37.0); MEAN PLATELET VOLUME 9.4 fl (9.6-12.3); MONO # 0.7 10*3/uL (0.1-1.0); MONO % 5.3 % (3.0-9.0); NEUT % 88.6 % (47.0-73.0); PLATELET COUNT AUTOMATED 337 10*3/uL (130-400); RED BLOOD COUNT 3.47 10*6/uL (4.50-5.90); RED CELL DISTRI WIDTH 15.6 % (0-14.5); WHITE BLOOD COUNT 13.5 10*3/uL (4.8-10.8)
[2019-08-07 06:51] LABS: CREATININE 1.62 mg/dL (0.70-1.30); POTASSIUM 4.2 mmol/L (3.5-5.1)
[2019-08-07 07:04] LABS: INTERNATIONAL NORM RATIO 2.2 (2.0-3.5)
--- NOTE | 2019-08-07 07:05 | NUR ---
PT AWAKE. REPORT RECEIVED FROM FELICITAS HARO. [facility]
--- NOTE | 2019-08-07 07:45 | NUR ---
PT LEFT FLOOR FOR SCHEDULED PROCEDURE
--- NOTE | 2019-08-07 10:30 | NUR ---
Cider Maker in to see patient. No new needs or request at this time. He denies any home needs. When medically stable he will be discharged to home. He had a bronchoscopy this morning.
--- NOTE | 2019-08-07 10:35 | NUR ---
PT REFUSED DRESSING ORDERED ON RIGHT ANTECUBITAL WOUND.
--- NOTE | 2019-08-07 11:50 | NUR ---
Spoke to Lev, [facility] services nurse outreach case manager, regarding patient remaining an inpatient in the hospital. Asked to call Lev at [phone] when patient is discharged so his home services can be resumed.
--- NOTE | 2019-08-07 13:44 | NUR ---
SPEECH PATHOLOGY Nursing screen completed. Speech pathology services are not warranted at this time however this dept. will be available should future needs arise. DANE SORTO MSCCC-PIE ICER MACHINE
--- NOTE | 2019-08-07 14:12 | NUR ---
CALLED [facility] INFECTIOUS DISEASE OFFICE REGARDING NEW PT CONSULT. DR MASON SOFTWARE SALES EXECUTIVE. WAITING SOFTWARE SALES EXECUTIVE BACK
--- NOTE | 2019-08-07 17:21 | NUR ---
PTS BLOOD SUGAR 75. PT ASYMPTOMATIC. I GAVE PT SHAUN CRACKERS, PEANUT BUTTER AND SHERBET. WILL MONITOR
--- NOTE | 2019-08-07 19:40 | NUR ---
DR CHRISTOPHER HERE TO ASSESS PATIENT AND DISCUSS PLAN OF CARE
--- NOTE | 2019-08-07 20:00 | NUR ---
SITTING IN RECLINER WATCHING TV WITH NO DISTRESS NOTED. RESPIRATIONS EASY. LUNGS DIMINISHED WITH I&E WHEEZES. PULSE OX 100% RA. PRODUCTIVE COUGH. BLE EDEMA L>R. CALL LIGHT WITHIN REACH. NO VOICED COMPLAINTS
--- NOTE | 2019-08-07 22:00 | NUR ---
RESTING IN BED. NO DISTRESS NOTED. RESPIRATIONS EASY. CALL LIGHT WITHIN REACH
--- NOTE | 2019-08-07 22:57 | NUR ---
24 HR chart check completed.
--- NOTE | 2019-08-07 23:30 | NUR ---
CALLED TO ROOM BY PATIENT WHO STATES HE HAS NOW DECIDED AGAINST EGD/COLO. ATTEMPTED TO EDUCATE PATIENT REGARDING PROCEDURE BUT PATIENT CONTINUES TO DECLINE
[2019-08-08] VITALS: BP 139/58
--- NOTE | 2019-08-08 00:30 | NUR ---
RESTING IN BED WITH EYES CLOSED AND NO DISTRESS NOTED. RESPIRATIONS EASY. VSS. CALL LIGHT WITHIN REACH
--- NOTE | 2019-08-08 06:00 | NUR ---
RESTED THROUGHOUT NIGHT WITH NO DISTRESS NOTED. RESPIRATIONS EASY. VSS. CALL LIGHT WITHIN REACH. NO VOICED COMPLAINTS THIS SHIFT
[2019-08-08 06:55] LABS: HEMATOCRIT 29.2 % (42.0-52.0); MEAN CELL VOLUME 93.3 fl (80.0-94.0); MEAN CORPUSCULAR HGB 28.8 pg (27.0-31.0); MEAN CORPUSCULAR HGB CONC 30.8 g/dl (33.0-37.0); MEAN PLATELET VOLUME 9.6 fl (9.6-12.3); PLATELET COUNT AUTOMATED 257 10*3/uL (130-400); RED BLOOD COUNT 3.13 10*6/uL (4.50-5.90); RED CELL DISTRI WIDTH 15.5 % (0-14.5)
[2019-08-08 07:04] LABS: CREATININE 1.63 mg/dL (0.70-1.30); POTASSIUM 4.6 mmol/L (3.5-5.1)
[2019-08-08 07:08] LABS: INTERNATIONAL NORM RATIO 2.2 (2.0-3.5)
[2019-08-08 07:21] LABS: PLATELET SUFFICIENCY NORMAL (NORMAL); TOTAL CELLS COUNTED 100 #CELLS
[2019-08-08 08:00] VITALS: BP 111/95
--- NOTE | 2019-08-08 08:20 | NUR ---
PT SITTING UP IN BED. RESP-EASY AND REGULAR. NO C/O AT THIS TIME. CALL LIGHT IN REACH. SEE SHIFT ASSESSMENT.
--- NOTE | 2019-08-08 10:30 | NUR ---
Arts Administrator in to see patient. No new needs or request at this time. He denies any home needs. When medically stable he will be discharged to home. Per multidisciplinary discharge planning meeting patient is to be discharged today. He is refusing his EGD/[place].
[2019-08-08 12:00] VITALS: BP 116/79
--- NOTE | 2019-08-08 12:24 | NUR ---
PT SITTING UP IN CHAIR. BSG-82, SEE EMAR. NO C/O AT THIS TIME. CALL LIGHT IN REACH.
[2019-08-08] MEDS ORDERED: PREDNISONE10 MG PO (14:08)
[2019-08-08] MEDS ORDERED: CIPRO500 MG PO (14:08)
[2019-08-08 15:08] LABS: ACID FAST SPEC PROCESSING Concentration (.)
--- NOTE | 2019-08-08 15:30 | NUR ---
Discharge instructions reviewed with patient/family. Patient receptive and verbalizes understanding. Follow-up care arranged. Written instructions given to patient/family. HEPLOCK REMOVED 2X2 APPLIED. HOLTER REMOVED. ESCORTED OUT VIA WHEELCHAIR WT VISITOR AT HIS SIDE. CALL LIGHT IN REACH. YUMIKO COTTO
--- NOTE | 2019-08-10 11:16 | NUR ---
Spoke to ravin Ohara, at [phone] regarding patient discharging to home. Services have been resumed per Lev.
== END 2019-08-08 15:30 | disposition home or self-care (01) | DRG 177 ==
LOC: 5E 13:59
PROVIDERS: Internal Medicine; Internal Medicine Critical Care Medicine; ADMIT Internal Medicine
DX: J15.6 Pneumonia due to other Gram-negative bacteria (principal); I50.43 Acute on chronic combined systolic (congestive) and diastolic (congestive) heart failure; I13.0 Hypertensive heart and chronic kidney disease with heart failure and stage 1 through stage 4 chronic kidney disease, or unspecified chronic kidney disease; J44.1 Chronic obstructive pulmonary disease with (acute) exacerbation; J44.0 Chronic obstructive pulmonary disease with (acute) lower respiratory infection; K92.1 Melena; J18.9 Pneumonia, unspecified organism; E11.65 Type 2 diabetes mellitus with hyperglycemia; N18.3 Chronic kidney disease, stage 3 (moderate); E11.22 Type 2 diabetes mellitus with diabetic chronic kidney disease; J20.9 Acute bronchitis, unspecified; D53.9 Nutritional anemia, unspecified; E87.8 Other disorders of electrolyte and fluid balance, not elsewhere classified; Z53.29 Procedure and treatment not carried out because of patient's decision for other reasons; E78.5 Hyperlipidemia, unspecified; M81.0 Age-related osteoporosis without current pathological fracture; G47.33 Obstructive sleep apnea (adult) (pediatric); I48.0 Paroxysmal atrial fibrillation; I08.1 Rheumatic disorders of both mitral and tricuspid valves; M19.90 Unspecified osteoarthritis, unspecified site; E66.01 Morbid (severe) obesity due to excess calories; G25.81 Restless legs syndrome; N43.3 Hydrocele, unspecified; T50.2X5A Adverse effect of carbonic-anhydrase inhibitors, benzothiadiazides and other diuretics, initial encounter; Y92.238 Other place in hospital as the place of occurrence of the external cause; T45.515A Adverse effect of anticoagulants, initial encounter; Y92.89 Other specified places as the place of occurrence of the external cause; Z90.49 Acquired absence of other specified parts of digestive tract; Z87.891 Personal history of nicotine dependence; Z82.49 Family history of ischemic heart disease and other diseases of the circulatory system; Z82.3 Family history of stroke; Z88.0 Allergy status to penicillin; Z88.1 Allergy status to other antibiotic agents; Z91.09 Other allergy status, other than to drugs and biological substances; Z88.8 Allergy status to other drugs, medicaments and biological substances; Z79.899 Other long term (current) drug therapy; Z79.01 Long term (current) use of anticoagulants; Z68.33 Body mass index [BMI] 33.0-33.9, adult

== ENCOUNTER 2019-09-22 04:37 | Inpatient (IN) | payer MEDICARE, MEDICAID ==
[2019-09-22] VITALS (7 sets, daily range): BP systolic 122–167; BP diastolic 68–90
[~2019-09-22] VITALS: Ht 193 cm; Wt 124.3 kg
[~2019-09-22 04:37] MED LIST changes: +AMARYL4 MG PO; +BREO ELLIPTA 21 EACH INH; +CARVEDILOL6.25 MG PO; +CIPRO500 MG PO; +COUMADIN1 M1 PO; +COUMADIN2 M1 PO; +FLOMAX0.4 MG PO; +PREDNISONE10 MG PO
[2019-09-22 06:01] LABS: BASO # 0.1 10*3/uL (0.0-0.1); BASO % 0.9 % (0.0-1.0); EOS # 0.1 10*3/uL (0.0-0.4); EOS % 1.7 % (1.0-4.0); HEMATOCRIT 29.9 % (42.0-52.0); LYMPH # 0.9 10*3/uL (1.3-4.4); LYMPH % 14.3 % (27.0-41.0); MEAN CELL VOLUME 93.1 fl (80.0-94.0); MEAN CORPUSCULAR HGB CONC 30.1 g/dl (33.0-37.0); MEAN PLATELET VOLUME 9.7 fl (9.6-12.3); MONO # 0.5 10*3/uL (0.1-1.0); MONO % 7.8 % (3.0-9.0); NEUT # 4.9 10*3/uL (2.3-7.9); NEUT % 74.7 % (47.0-73.0); PLATELET COUNT AUTOMATED 238 10*3/uL (130-400); RED BLOOD COUNT 3.21 10*6/uL (4.50-5.90); RED CELL DISTRI WIDTH 14.6 % (0-14.5); WHITE BLOOD COUNT 6.5 10*3/uL (4.8-10.8)
[2019-09-22 06:08] LABS: BILIRUBIN NEGATIVE (NEGATIVE); BLOOD NEGATIVE (NEGATIVE); CLARITY SL CLOUDY (CLEAR); COLOR YELLOW (YELLOW); GLUCOSE NEGATIVE (NEGATIVE); KETONE NEGATIVE (NEGATIVE); LEUKO ESTERASE NEGATIVE (NEGATIVE); NITRITE NEGATIVE (NEGATIVE); SPECIFIC GRAVITY >= 1.030 (1.005-1.030); UROBILINOGEN 0.2 E.U./dl (0.2-1.0)
[2019-09-22 06:13] LABS: INTERNATIONAL NORM RATIO 2.2 (2.0-3.5)
[2019-09-22 06:17] LABS: ALBUMIN 2.9 gm/dl (3.1-4.5); ALKALINE PHOSPHATASE 103 U/L (45-117); BUN 21 mg/dl (7-24); CHLORIDE 114 mmol/L (98-107); CREATININE 1.26 mg/dL (0.70-1.30); LIPASE 96 U/L (73-393); POTASSIUM 4.5 mmol/L (3.5-5.1); SGOT/AST 14 IU/L (3-35); SGPT/ALT 18 U/L (12-78); SODIUM 145 mmol/L (136-145); TOTAL PROTEIN 6.3 gm/dL (6.4-8.2)
[2019-09-22 06:18] LABS: BACTERIA 4+; MUCOUS 1+
--- NOTE | 2019-09-22 07:05 | NUR ---
A 79, admitted to 5E, under the services of IRMA Parisi MD with a diagnosis of PNEUMONIA. Chief complaint is ABDOMINAL PAIN. Patient arrived via bed from ER. Monitor applied. Initial assessment completed. Vital signs taken and recorded. IRMA PARISI MD notified of admission to the unit. Orders received. See assessment for past medical history, medications and allergies. Patient and/or family oriented to unit. [facility] visitation policy reviewed. Clothing/patient valuable form completed. ALONDRA ROY
--- NOTE | 2019-09-22 07:40 | NUR ---
PT NEEDS MED REC UPDATED BY [facility], HE DOES NOT KNOW WHAT HIS MEDICATIONS ARE THAT HE TAKES AT HOME.
--- NOTE | 2019-09-22 08:19 | NUR ---
[place] given per patient request for right posterior thoracic pain. Will monitor.
--- NOTE | 2019-09-22 09:00 | NUR ---
Paper Bag Maker in to talk to patient. Patient states lives at home alone with his sister checking in on him. There are 0 steps in the home. There are 2 wheelchair ramps. Physician: Dr. Bharat Soto [facility] Home health services: none Patient's level of ADLs: MINIMAL ASSIST Patient has working utilities: yes DME: seated walker, wheelchair, O2 @ 2-3 L nc, portable O2 tanks, nebulizer, O2 supplier is an unknown company in [place], [facility] alert Follow-up physician's appointment after d/c: he prefers to make his own follow up appt after discharge Does patient want to access PORTAL?: no Discharge plan discussed with patient. He is sitting up on the edge of his bed without distress noted. He lives at home alone with his sister checking in on him. He states he has a cleaning lady come on Mondays and . Discussed home health care services and he denies any other home needs. When medically stable he will be discharged to home. He [facility] or his sister for transportation home on discharge. He states his sister is his HPOA, Jarvis. JIE GUTIERREZ
--- NOTE | 2019-09-22 09:00 | NUR ---
Adam effective. Patient states it "knocked alot of it out."
--- NOTE | 2019-09-22 09:39 | NUR ---
Contacted patients home pharmacy for updated med list. Pharmacist to fax.
--- NOTE | 2019-09-22 10:32 | NUR ---
Spoke with Virginia at Dr. Kendall office and updated patients med rec. Medical student notified that med rec was updated and complete.
--- NOTE | 2019-09-22 13:59 | NUR ---
Per pharmacist request verifed allergic reaction to Ceftriaxone with patient. Per patient "I see things that nobody else does."
--- NOTE | 2019-09-22 15:24 | NUR ---
Notified sister and POJarvis Elias, of patient's admission.
[2019-09-23] VITALS: BP 142/83; BP 147/70
[2019-09-23 06:48] LABS: BASO % 0.2 % (0.0-1.0); HEMATOCRIT 30.7 % (42.0-52.0); HEMOGLOBIN 9.2 g/dl (14.0-18.0); LYMPH # 0.6 10*3/uL (1.3-4.4); LYMPH % 9.3 % (27.0-41.0); MEAN CELL VOLUME 91.1 fl (80.0-94.0); MEAN CORPUSCULAR HGB 27.3 pg (27.0-31.0); MEAN PLATELET VOLUME 9.9 fl (9.6-12.3); MONO # 0.1 10*3/uL (0.1-1.0); MONO % 1.9 % (3.0-9.0); NEUT # 5.7 10*3/uL (2.3-7.9); PLATELET COUNT AUTOMATED 295 10*3/uL (130-400); RED BLOOD COUNT 3.37 10*6/uL (4.50-5.90); RED CELL DISTRI WIDTH 14.5 % (0-14.5); WHITE BLOOD COUNT 6.4 10*3/uL (4.8-10.8)
[2019-09-23 07:01] LABS: ALBUMIN 3.2 gm/dl (3.1-4.5); ALKALINE PHOSPHATASE 108 U/L (45-117); BUN 20 mg/dl (7-24); CHLORIDE 111 mmol/L (98-107); CHOLESTEROL 163 mg/dL (<200); CREATININE 1.25 mg/dL (0.70-1.30); HDL CHOLESTEROL 51 mg/dl (40-60); LDL CHOLESTEROL 104 mg/dL (9-159); PHOSPHOROUS 2.8 mg/dL (2.5-4.9); POTASSIUM 4.4 mmol/L (3.5-5.1); SGOT/AST 16 IU/L (3-35); SGPT/ALT 19 U/L (12-78); SODIUM 141 mmol/L (136-145); TOTAL PROTEIN 6.8 gm/dL (6.4-8.2); TRIGLYCERIDES 40 mg/dl (<150); VLDL CHOLESTEROL 8 mg/dL (6-40)
[2019-09-23 08:00] VITALS: BP 140/76
[2019-09-23 08:35] LABS: VITAMIN D, 25-HYDROXY 38.2 ng/mL (30-100)
--- NOTE | 2019-09-23 11:34 | NUR ---
Notified of patients fall. See new orders.
[2019-09-23 12:00] VITALS: BP 159/87
--- NOTE | 2019-09-23 14:03 | NUR ---
[place] given per patient request for c/o back pain. Will monitor.
[2019-09-23 16:00] VITALS: BP 121/76
[2019-09-23 20:00] VITALS: BP 115/59
--- NOTE | 2019-09-23 20:00 | NUR ---
PATIENT AWAKE AND ALERT SITTING IN A CHAIR. PATIENT HAS NO COMPLAINTS AT THIS TIME. MOIST PRODUCTIVE COUGH WITH LIGHT YELLOW SPUTUM OBSERVED. CHAIR ALARM ON AND CALL LIGHT WITHIN REACH. PATIENT EDUCATED ON THE IMPORTANCE OF USING CALL MATHEW. WILL MONITOR.
--- NOTE | 2019-09-23 20:30 | NUR ---
IV IN R AC INFILTRATED. DISCONTINUED AND WILL RESTART.
--- NOTE | 2019-09-23 22:02 | NUR ---
PATIENT REFUSING INSULIN COVERAGE FOR BS 196.
--- NOTE | 2019-09-23 22:10 | NUR ---
IV started right forearm with #20 angiocath after 1 attempts. The IV site was prepped with Chloraprep. Sterile dressing applied. Patient tolerated precedure well. Procedure performed according to [facility] policy & procedure. ALONDRA ELLIS
[2019-09-24] VITALS: BP 118/64
--- NOTE | 2019-09-24 00:23 | NUR ---
PATIENT REQUESTING MEDICATION FOR BACK PAIN AND FOR SLEEP. NORCO AND RESTORIL ADMINISTERED PRESCRIBED. WILL MONITOR FOR EFFECTIVENESS.
--- NOTE | 2019-09-24 01:23 | NUR ---
PATIENT RESTING WITH EYES CLOSED. RESPIRATIONS EASY AND UNLABORED. BED ALARM ON AND CALL LIGHT WITHIN REACH. WILL MONITOR.
--- NOTE | 2019-09-24 02:00 | NUR ---
PATIENT RESTING WITH EYES CLOSED. RESPIRATIONS EASY AND UNLABORED. BED ALARM ON AND CALL LIGHT WITHIN REACH. WILL MONITOR.
--- NOTE | 2019-09-24 03:56 | NUR ---
24 HR chart check completed.
--- NOTE | 2019-09-24 04:00 | NUR ---
PATIENT RESTING WITH EYES CLOSED. RESPIRATIONS EASY AND UNLABORED. BED ALARM ON AND CALL LIGHT WITHIN REACH. WILL MONITOR.
--- NOTE | 2019-09-24 04:45 | NUR ---
IV IN RIGHT ARM LEAKING. DISCONTINUED.
--- NOTE | 2019-09-24 04:50 | NUR ---
IV started left antecubital with #20 protective cath after 1 attempts. Site prepped with Chloroprep. Sterile dressing applied. Patient tolerated procedure well. ALONDRA ELLIS
[2019-09-24 08:00] VITALS: BP 125/67
[2019-09-24 10:38] LABS: INTERNATIONAL NORM RATIO 2.2 (2.0-3.5)
[2019-09-24 12:00] VITALS: BP 138/76
[2019-09-24 16:00] VITALS: BP 127/75
--- NOTE | 2019-09-24 19:05 | NUR ---
24 HR chart check completed.
[2019-09-24 20:00] VITALS: BP 113/61
--- NOTE | 2019-09-24 20:00 | NUR ---
PATIENT AWAKE AND ALERT SITTING IN CHAIR. PATIENT C/O BACK PAIN. CHAIR ALARM ON AND CALL LIGHT WITHIN REACH.
--- NOTE | 2019-09-24 20:04 | NUR ---
PATIENT REQUESTING PAIN MEDICATION FOR BACK PAIN. NORCO ADMINISTERED PRESCRIBED. WILL MONITOR FOR EFFECTIVENESS.
--- NOTE | 2019-09-24 21:04 | NUR ---
PATIENT STATES THAT NORCO AND BLUE GEL WAS EFFECTIVE FOR BACK PAIN. CALL LIGHT IN REACH. CONTINUE TO MONITOR.
[2019-09-25] VITALS: BP 134/66
--- NOTE | 2019-09-25 | NUR ---
PATIENT SITTING UP IN CHAIR WATCHING TV. RESPIRATION EASY AND UNLABORED. CHAIR ALARM ON AND CALL LIGHT IN REACH. WILL MONITOR.
--- NOTE | 2019-09-25 01:27 | NUR ---
PATIENT REQUESTING PAIN AND SLEEP MEDICATION. NORCO AND RESTORIL ADMINISTERED PRESCRIBED. WILL MONITOR FOR EFFECTIVENESS.
--- NOTE | 2019-09-25 02:27 | NUR ---
PATIENT RESTING WITH EYES CLOSED. RESPIRATIONS EASY AND UNLABORED. BED ALARM ON AND CALL LIGHT IN REACH. WILL MONITOR.
--- NOTE | 2019-09-25 04:00 | NUR ---
PATIENT RESTING WITH EYES CLOSED. RESPIRATIONS EASY AND UNLABORED. BED ALARM ON AND CALL LIGHT IN REACH. WILL MONITOR.
[2019-09-25 07:01] LABS: CREATININE 1.41 mg/dL (0.70-1.30); POTASSIUM 4.2 mmol/L (3.5-5.1)
[2019-09-25 08:00] VITALS: BP 115/66
--- NOTE | 2019-09-25 09:00 | NUR ---
Packerhead Machine Operator in to see patient. No new needs or request at this time. He denies any home needs. When medically stable he will be discharged to home. He has passport services of emergency button, personal care for 3 hours on Wednesday and with [facility], 14 home delivered meals from [employer]. He has oxygen, rollator, wheelchair, and shower chair. Diuresing with lasix BID, treating RLL pneumonia with merrem and doxycycline.
--- NOTE | 2019-09-25 09:56 | NUR ---
PHYSICAL THERAPY Chris completed pt moderate level of complexity 41419 recomend SNF at discharge however pt stats he will go home discussed HH as an option and pt "don't think that will work either". Pt has had multiple falls at home and fell here in hospital. PT to work on transfers,strengthening, amb safety and balance. Would also rohan from OT consult thank you Aubrie Guadarrama PT
--- NOTE | 2019-09-25 10:36 | NUR ---
PT SITTING UP IN CHAIR, NO NEEDS STATED AT THIS TIME. AM MORNING MEDICATIONS GIVEN, NO QUESTIONS AT THIS TIME, MIRALAX GIVEN IN WATER, PT TOOK WITHOUT DIFFICULTY.
[2019-09-25 10:48] LABS: INTERNATIONAL NORM RATIO 2.2 (2.0-3.5)
[2019-09-25 12:00] VITALS: BP 123/69
[2019-09-25 16:00] VITALS: BP 115/70
--- NOTE | 2019-09-25 19:34 | NUR ---
24 HR chart check completed.
[2019-09-25 20:00] VITALS: BP 132/78
--- NOTE | 2019-09-25 20:00 | NUR ---
PATIENT SITTING IN CHAIR WATCHING TV. PATIENT HAS NO COMPLAINTS AT THIS TIME. CHAIR ALARM ON AND CALL LIGHT IN REACH. SEE SHIFT ASSESSMENT. WILL MONITOR.
--- NOTE | 2019-09-25 21:00 | NUR ---
PATIENT REQUESTING PAIN MEDICATION FOR BACK PAIN. NORCO ADMINISTERED PRESCRIBED. WILL MONITOR FOR EFFECTIVENESS.
--- NOTE | 2019-09-25 22:00 | NUR ---
PATIENT STATES THAT NORCO WAS EFFECTIVE FOR BACK PAIN. WILL MONITOR.
--- NOTE | 2019-09-25 23:53 | NUR ---
PATIENT REQUESTING SLEEPING MEDICATION. RESTORIL ADMINISTERED PRESCRIBED. WILL MONITOR FOR EFFECTIVENESS.
[2019-09-26] VITALS: BP 132/72
--- NOTE | 2019-09-26 00:53 | NUR ---
PATIENT RESTING WITH EYES CLOSED. RESPIRATIONS EASY AND UNLABORED. BED ALARM ON AND CALL LIGHT IN REACH. WILL MONITOR.
--- NOTE | 2019-09-26 02:00 | NUR ---
PATIENT RESTING WITH EYES CLOSED. RESPIRATIONS EASY AND UNLABORED. BED ALARM ON AND CALL LIGHT IN REACH. WILL MONITOR.
--- NOTE | 2019-09-26 04:00 | NUR ---
PATIENT RESTING WITH EYES CLOSED. RESPIRATIONS EASY AND UNLABORED. BED ALARM ON AND CALL LIGHT IN REACH. WILL MONITOR.
[2019-09-26 06:37] LABS: CREATININE 1.41 mg/dL (0.70-1.30); POTASSIUM 4.5 mmol/L (3.5-5.1)
--- NOTE | 2019-09-26 07:32 | NUR ---
NOTIFIED OF +SPUTUM CULTURE FOR PSEUDOMONAS. NO NEW ORDERS REC'D.
[2019-09-26 08:00] VITALS: BP 112/72
--- NOTE | 2019-09-26 08:29 | NUR ---
REFUSING PT/OT THIS AM. ATTEMPTED TO EDUCATED. STILL REFUSED. SAID "WHAT'S THE POINT? MY LEGS COULD BUCKLE AND I COULD STILL GO DOWN." TOLERATED PO AM MEDS WELL.
--- NOTE | 2019-09-26 10:30 | NUR ---
Dairy Science Teacher in to see patient. No new needs or request at this time. He denies any home needs. When medically stable he will be discharged to home. Diuresing with lasix BID, treating RLL pneumonia with merrem and doxycycline, sputum culture + pseudomonas aeurginosa, repeat chest x-ray this am.
[2019-09-26 11:01] LABS: INTERNATIONAL NORM RATIO 2.1 (2.0-3.5)
--- NOTE | 2019-09-26 11:20 | NUR ---
PHYSICAL THERAPY Patient presented to therapy in sitting in bedside chair with chair alarm attached and report of LBP of 05/20. Patient was identified by name and on wristband. Patient gives informed consent for treatment. Patient has swollen LEs bilaterally. Patient performed sit to stand from bedside chair with MIN A X 2. Patient stood at Walker with CGA X 2 for 2 min 30 seconds total and then he had to sit due to his LEs feeling like they might buckle. Patient transferred back to sitting in bedside chair with MIN A X 1. Patient sat in bedside chair and performed bilateral LE ther ex in all planes of movement x 15 reps each for strengthening in order to improve patient's functional mobility. Patient was left in bedside chair with LEs elevated, chair alarm tested and attached to patient and call light within reach. Patient was 1:1 with this REGIONAL PROPERTY MANAGER for 20 minutes total. GIANFRANCO FALK REGIONAL PROPERTY MANAGER
[2019-09-26 12:00] VITALS: BP 112/63
--- NOTE | 2019-09-26 12:17 | NUR ---
Nutritional Support Services Note: Attempting to educate patient on 1800cal diabetic diet. Rationale for diet and need for better compliance explained. Pt is not interested in education and declined diet copy. States he wants to eat what he likes and as much as he wants. Unable to eat healthy foods because they are too hard. Discussed soft vegetable inake. Encouraged follow up if needed and offered outpatient diabetic classes. Grace Palomino Rdn Ld
[2019-09-26 16:00] VITALS: BP 116/62
[2019-09-26 20:00] VITALS: BP 108/56
--- NOTE | 2019-09-26 20:33 | NUR ---
SITTING UP IN CHAIR AT BEDSIDE. NO ACUTE DISTRESS NOTED OR VOICED.
--- NOTE | 2019-09-26 23:55 | NUR ---
RESTORIL GIVEN FOR INSOMNIA AND NORCO GIVEN FOR PAIN IN BACK RATED "6" PER PT. SEE MAR.
[2019-09-27] VITALS: BP 128/68
--- NOTE | 2019-09-27 02:10 | NUR ---
24 HR chart check completed.
[2019-09-27 06:36] LABS: CREATININE 1.48 mg/dL (0.70-1.30)
[2019-09-27 06:42] LABS: INTERNATIONAL NORM RATIO 1.8 (2.0-3.5)
--- NOTE | 2019-09-27 07:40 | NUR ---
PHYSICAL THERAPY Patient was approached for therapy session this AM and declined saying he wanted to rest longer this AM. Patient doesn't think he needs therapy. Will check back later in the day with patient. GIANFRANCO FALK CARE ATTENDANT
[2019-09-27 08:00] VITALS: BP 109/52
--- NOTE | 2019-09-27 09:00 | NUR ---
Platen Press Operator in to see patient. He is sitting up in his bedside chair without distress noted. No new needs or request at this time. Discussed home health care services and he denies any home needs at this time. When medically stable he will be discharged to home. Diuresing with lasix BID, lost 2 kg, treating RLL pneumonia with merrem, sputum culture + pseudomonas aeurginosa, ID consulted.
--- NOTE | 2019-09-27 09:51 | NUR ---
SPEECH PATHOLOGY Nursing screen complete. Speech services do not appear to be indicated at this time as there are no reports of acute communication or swallowing difficulty. This dept. will be available should future needs arise. DANE SORTO MSCCC-OFFICE MACHINES SALES REPRESENTATIVE
[2019-09-27 12:00] VITALS: BP 104/47
--- NOTE | 2019-09-27 13:53 | NUR ---
PHYSICAL THERAPY TREATMENT TIME: 1:40 PM - 1:55 PM 15 MINUTES TOTAL TREATMENT TIME. Patient presented to therapy in sitting in bedside chair with chair alarm attached. Patient was identified by name and on wristband. Patient gives informed consent for treatment. Patient performed sit to stand from Bedside chair with CGA X 1. Patient stood at Walker and wt. shifted side to side for 2 minutes with CGA X 2. Patient ambulated 25' x 1 with CGA X 1 and other therapist pushing rolling bedside chair behind patient with verbal cues for locking knees into extension to prevent knee buckle and for upright posture. Patient sat in rolling chair follow the 25' x 1 with CGA X 1. Patient's knees did not buckle during the ambulation and no LOB. Patient still does have the potential for knee buckling due to LE weakness. Patient was left in bedside chair with chair alarm tested and attached to patient, call light within reach and tray table near patient. Patient was 1:1 with this SOIL SCIENCE TEACHER for 15 minutes total. GIANFRANCO FALK SOIL SCIENCE TEACHER
[2019-09-27 16:00] VITALS: BP 95/56
[2019-09-27 20:00] VITALS: BP 112/76
--- NOTE | 2019-09-27 21:35 | NUR ---
RESTORIL GIVEN FOR INSOMNIA PER PT. REQUEST. NORCO GIVE PER ORDER FOR PAIN IN BACK RATED"5-6" PER PT. SEE MAR.
--- NOTE | 2019-09-27 22:30 | NUR ---
PATIENT STILL AWAKE RESTORIL NOT EFFECTIVE YET. NORCO HELPING WITH BACK PER PT.
[2019-09-28] VITALS: BP 126/64
--- NOTE | 2019-09-28 00:24 | NUR ---
BLUE GEL APPLIED TO PATIENT BACK SHOULDER BLADES AND CHEST PER PT REQUEST FOR DISCOMFORT.
--- NOTE | 2019-09-28 00:44 | NUR ---
24 HR chart check completed.
--- NOTE | 2019-09-28 02:21 | NUR ---
PATIENT NOT GETTING MUCH SLEEP TONIGHT TOSSING AND TURNING COUGHING AND TRYING TO COUGH UP MUCUS.
--- NOTE | 2019-09-28 04:00 | NUR ---
PATIENT FINALLY RESTING WITHOUT COUGHING. RESP. REG. NO ACUTE DISTRESS NOTED.
--- NOTE | 2019-09-28 06:40 | NUR ---
HEPLOCK discontinued. Site symptomatic, infiltrated. Pressure applied. Sterile dressing applied. IV to be restarted. KARY BELL J
--- NOTE | 2019-09-28 07:17 | NUR ---
IV started right arm with #22 angiocath after 1ST attempts. The IV site was prepped with Chloraprep. Heparin lock attached. Sterile dressing applied. Patient tolerated precedure well. Procedure performed according to [facility] policy & procedure. KARY BELL
[2019-09-28 07:26] LABS: POTASSIUM 4.1 mmol/L (3.5-5.1)
[2019-09-28 07:27] LABS: CREATININE 1.55 mg/dL (0.70-1.30)
--- NOTE | 2019-09-28 07:30 | NUR ---
REPORT RECEIVED FROM KARY HARO. PT AWAKE AT THIS TIME. CALL LIGHT IN REACH.
[2019-09-28 08:00] VITALS: BP 128/60
[2019-09-28 08:08] LABS: INTERNATIONAL NORM RATIO 1.7 (2.0-3.5)
--- NOTE | 2019-09-28 08:20 | NUR ---
PHYSICAL THERAPY Patient seen this am 1;1 for therapy visit and was sitting up on EOB upon therapist arrival. Patient identified by name / and presented with increased B LE edema. Patient was pleasant voicing mild posterior shoulder blade pain / discomfort and transfers sit to stand CGA, dmeonstrating very slow initial rise. Patient also with use of wh walker standing support secondary to history of B knee buckling. Patient completed SPT to bedsdide chair, including several forward steps, CGA, demonstrating increased difficulty advancing B LE's. Patient instructed on and performed seated B LE therex, all planes x 15 reps each to increase LE strength without c/o and remained in bedside chair with call light, tray table, telephone and body alarm for safety. Will continue per POC as tolerated, total treatment time 16 minutes. Rogerio Schmidt, SERVICE WRITER
--- NOTE | 2019-09-28 11:30 | NUR ---
DR. LUCERO IN TO SEE PT. STATED SHE WOULD HAVE DR. MARTEL PUT D/C IN COMPUTER. ORDERS RECEIVED.
[2019-09-28 12:00] VITALS: BP 133/53
--- NOTE | 2019-09-28 12:30 | NUR ---
PT FAMILY MEMBER HERE TO GET PT. PT DISCHARGE NOT IN COMPUTER. DR. MARTEL NOTIFIED STATED "I WILL PUT IT IN IN 30 MINUTES."
[2019-09-28] MEDS ORDERED: Synthroid,Levo50 MCG PO (13:02)
[2019-09-28] MEDS ORDERED: COUMADIN2.5 M1 PO (13:02)
[2019-09-28] MEDS ORDERED: 'CIPRO PO (13:02)
[2019-09-28] MEDS ORDERED: COUMADIN2 M1 PO (13:18)
--- NOTE | 2019-09-28 13:32 | NUR ---
Discharge instructions reviewed with patient/family. Patient receptive and verbalizes understanding. Follow-up care arranged. Written instructions given to patient/family. KIESHA SANCHEZ
--- NOTE | 2019-10-02 07:41 | NUR ---
PHYSICAL THERAPY CO-SIGN I approve of the Physical Therapy notes written above. Aubrie Guadarrama PT
== END 2019-09-28 13:32 | disposition home or self-care (01) | DRG 177 ==
LOC: ED 04:37 → 5E 06:27 → EDHOLD 06:27 → 5E 06:40
PROVIDERS: Emergency Medicine; Internal Medicine; Student in an Organized Health Care Education/Training Program; ADMIT Internal Medicine
DX: J15.1 Pneumonia due to Pseudomonas (principal); I50.43 Acute on chronic combined systolic (congestive) and diastolic (congestive) heart failure; J44.1 Chronic obstructive pulmonary disease with (acute) exacerbation; I13.0 Hypertensive heart and chronic kidney disease with heart failure and stage 1 through stage 4 chronic kidney disease, or unspecified chronic kidney disease; E78.5 Hyperlipidemia, unspecified; M81.0 Age-related osteoporosis without current pathological fracture; G47.33 Obstructive sleep apnea (adult) (pediatric); N18.3 Chronic kidney disease, stage 3 (moderate); E11.65 Type 2 diabetes mellitus with hyperglycemia; E11.22 Type 2 diabetes mellitus with diabetic chronic kidney disease; I48.91 Unspecified atrial fibrillation; M19.90 Unspecified osteoarthritis, unspecified site; K59.00 Constipation, unspecified; E66.01 Morbid (severe) obesity due to excess calories; E03.9 Hypothyroidism, unspecified; I07.1 Rheumatic tricuspid insufficiency; R29.898 Other symptoms and signs involving the musculoskeletal system; D64.9 Anemia, unspecified; D72.810 Lymphocytopenia; D72.9 Disorder of white blood cells, unspecified; E83.51 Hypocalcemia; Z88.0 Allergy status to penicillin; Z88.8 Allergy status to other drugs, medicaments and biological substances; Z88.1 Allergy status to other antibiotic agents; Z91.048 Other nonmedicinal substance allergy status; Z90.49 Acquired absence of other specified parts of digestive tract; Z87.891 Personal history of nicotine dependence; Z82.49 Family history of ischemic heart disease and other diseases of the circulatory system; Z82.3 Family history of stroke; Z83.3 Family history of diabetes mellitus; Z99.81 Dependence on supplemental oxygen; Z79.899 Other long term (current) drug therapy; Z79.01 Long term (current) use of anticoagulants; Z68.35 Body mass index [BMI] 35.0-35.9, adult

== ENCOUNTER 2019-11-22 14:53 | Inpatient (IN) | payer MEDICARE, MEDICAID ==
[~2019-11-22] VITALS: Ht 193 cm; Wt 128.5 kg
[~2019-11-22 14:53] MED LIST changes: +'CIPRO PO; +Synthroid,Levo50 MCG PO
--- NOTE | 2019-11-22 15:20 | NUR ---
A 79, admitted to , under the services of IRMA Parisi MD with a diagnosis of CHF,CKD. Chief complaint is EDEMA. Patient arrived via wheel chair from CT. Monitor applied. Initial assessment completed. Vital signs taken and recorded. IRMA PARISI MD notified of admission to the unit. Orders received. See assessment for past medical history, medications and allergies. Patient and/or family oriented to unit. [facility]. Clothing/patient valuable form completed. LIANG BOWDEN
[2019-11-22 15:30] VITALS: BP 152/85
--- NOTE | 2019-11-22 15:43 | NUR ---
DR. BREEN WILL COME SEE THE PATIENT AND ENTER ORDERS. DR. LUCERO NOTIFIED OF CONSULT
[2019-11-22] MEDS ORDERED: LEVOTHYROXINE75 MCG PO (15:54)
[2019-11-22] MEDS ORDERED: MUCINEX DM 30/61 TAB PO (15:57)
[2019-11-22] MEDS ORDERED: ADVAIR HFA 230-12 GM INH (15:59)
[2019-11-22 16:00] VITALS: BP 156/82
[2019-11-22] MEDS ORDERED: PROAIR HFA8.5 GM INH (16:00)
--- NOTE | 2019-11-22 17:20 | NUR ---
FIDELIAATRY RESIDENT HERE TO SEE PATIENT
--- NOTE | 2019-11-22 17:41 | NUR ---
RAMONAU NOTIFIED OF CONSULT
[2019-11-22 17:45] LABS: BASO % 0.5 % (0.0-1.0); EOS # 0.2 10*3/uL (0.0-0.4); EOS % 2.7 % (1.0-4.0); HEMATOCRIT 31.2 % (42.0-52.0); HEMOGLOBIN 8.9 g/dl (14.0-18.0); LYMPH # 0.9 10*3/uL (1.3-4.4); LYMPH % 15.8 % (27.0-41.0); MEAN CELL VOLUME 88.9 fl (80.0-94.0); MEAN CORPUSCULAR HGB 25.4 pg (27.0-31.0); MEAN CORPUSCULAR HGB CONC 28.5 g/dl (33.0-37.0); MEAN PLATELET VOLUME 9.6 fl (9.6-12.3); MONO # 0.5 10*3/uL (0.1-1.0); MONO % 8.6 % (3.0-9.0); NEUT # 4.2 10*3/uL (2.3-7.9); NEUT % 71.9 % (47.0-73.0); PLATELET COUNT AUTOMATED 221 10*3/uL (130-400); RED BLOOD COUNT 3.51 10*6/uL (4.50-5.90); RED CELL DISTRI WIDTH 16.2 % (0-14.5); WHITE BLOOD COUNT 5.8 10*3/uL (4.8-10.8)
[2019-11-22 18:11] LABS: ALBUMIN 3.3 gm/dl (3.1-4.5); CREATININE 1.59 mg/dL (0.70-1.30); PHOSPHOROUS 2.6 mg/dL (2.5-4.9); TOTAL PROTEIN 6.5 gm/dL (6.4-8.2)
[2019-11-22 18:12] LABS: ACT PARTIAL THROMBO TIME 44.4 SECONDS (20.0-32.1); INTERNATIONAL NORM RATIO 1.9 (2.0-3.5)
[2019-11-22 20:00] VITALS: BP 117/61
[2019-11-22 20:56] LABS: BILIRUBIN NEGATIVE (NEGATIVE); BLOOD NEGATIVE (NEGATIVE); CLARITY CLEAR (CLEAR); COLOR YELLOW (YELLOW); GLUCOSE NEGATIVE (NEGATIVE); KETONE NEGATIVE (NEGATIVE); LEUKO ESTERASE NEGATIVE (NEGATIVE); NITRITE NEGATIVE (NEGATIVE); UROBILINOGEN 0.2 E.U./dl (0.2-1.0)
[2019-11-23] VITALS: BP 110/54
--- NOTE | 2019-11-23 03:20 | NUR ---
24 HR chart check completed.
--- NOTE | 2019-11-23 05:58 | NUR ---
BIJAL LEES [id number] Please refer to the physician's history and physical for past medical history, comorbid conditions, and allergies. Diagnosis: COPD CHF Nicolas Score: 17,AT RISK WOUND DESCRIPTIONS: Wound Number: 1 Location of the wound: Left hand at base of middle finger Type of wound: skin tear Thickness: Partial Size: 0.9cm x 0.7cm x 0.1cm Tunneling: none Undermining: none Sinus Tract: none Presence of Exudate: Serosanguineous Amount: Light Color: Red Odor: None Periwound Skin Appearance: Normal Wound edges: approximated Pain (associated with wound): none at time of assessment How does patient state this happened? pt states he is unsure of what he bumped it on but bump it on something and it bled like crazy on his way here Bilateral lower extremities wrapped by podiatry yesterday per nurse caring for patient. No strike through drainage noted at time of assessment. Surface the patient is resting on: Isoflex SKIN PREVENTION RECOMMENDATION: 1. Pressure redistribution support surface as appropriate 2. Elevate heels 3. Remove boots/TEDS every shift and reapply 4. Head of bed 30 degrees as tolerated 5. Assess nutrition and hydration 6. Manage moisture 7. Avoid the use of containment devices while in bed 8. Use absorptive products on surfaces limit layers of linens on bed 9. Turn and reposition every 1-2 hours in bed and every 1 hour in chair as tolerated 10. Weight shifts every 15 minutes while up in chair 11. Offloading with pillows or device to keep heels elevated off bed 12. Monitor skin at least every shift 13. Inspect under medical devices twice a day WOUND TREATMENT RECOMMENDATIONS: Skin tear guidelines: Cleanse left hand at base of middle finger with nss and apply hydrogel and cover with bandaid bid and prn for soiling. Patient states he will be able to take care of this area when he returns home and doesn't want to follow up in an outpatient center at this time.
[2019-11-23 06:33] LABS: BASO % 0.9 % (0.0-1.0); EOS # 0.2 10*3/uL (0.0-0.4); EOS % 3.4 % (1.0-4.0); HEMATOCRIT 28.9 % (42.0-52.0); HEMOGLOBIN 8.3 g/dl (14.0-18.0); LYMPH # 0.8 10*3/uL (1.3-4.4); LYMPH % 18.8 % (27.0-41.0); MEAN CELL VOLUME 89.2 fl (80.0-94.0); MEAN CORPUSCULAR HGB 25.6 pg (27.0-31.0); MEAN CORPUSCULAR HGB CONC 28.7 g/dl (33.0-37.0); MONO # 0.4 10*3/uL (0.1-1.0); MONO % 9.6 % (3.0-9.0); NEUT # 2.9 10*3/uL (2.3-7.9); NEUT % 67.1 % (47.0-73.0); PLATELET COUNT AUTOMATED 210 10*3/uL (130-400); RED BLOOD COUNT 3.24 10*6/uL (4.50-5.90); RED CELL DISTRI WIDTH 16.1 % (0-14.5); WHITE BLOOD COUNT 4.4 10*3/uL (4.8-10.8)
[2019-11-23 06:55] LABS: ALBUMIN 3.2 gm/dl (3.1-4.5); CREATININE 1.66 mg/dL (0.70-1.30); FREE T4 0.88 ng/dl (0.76-1.46); POTASSIUM 3.8 mmol/L (3.5-5.1); TOTAL PROTEIN 6.2 gm/dL (6.4-8.2)
[2019-11-23 07:01] LABS: THYROID STIM HORMONE (HS) 23.2 uIU/ml (0.358-4.75)
[2019-11-23 07:22] LABS: INTERNATIONAL NORM RATIO 1.8 (2.0-3.5)
--- NOTE | 2019-11-23 07:30 | NUR ---
TOOK OVER CARE OF PT. PT RESTING IN BED. RESPIRATIONS EASY AND UNLABORED. NO S/S OF DISTRESS NOTED. ALL SAFETY MEASURES IN PLACE. CALL LIGHT IN REACH.
[2019-11-23 08:00] VITALS: BP 145/80
--- NOTE | 2019-11-23 09:00 | NUR ---
Babbitter in to talk to patient. Patient states lives at home alone with his sister checking in on him. There are 0 steps in the home. There are 2 wheelchair ramps. Physician: Dr. Bharat Soto [facility]: [facility] Home health services: none Patient's level of ADLs: MINIMAL ASSIST Patient has working utilities: yes DME: seated walker, wheelchair, O2 @ 2-3 L nc, portable O2 tanks, nebulizer, O2 supplier is an unknown company in [place], [facility] Follow-up physician's appointment after d/c: he prefers to make his own follow up appt after discharge Does patient want to access PORTAL?: no Discharge plan discussed with patient. He is sitting up on the edge of his bed eating breakfast without distress noted. He lives at home alone with his sister who lives next door checking in on him daily. He states he has a cleaning lady that comes on Mondays and . Discussed home health care services and he denies any other home needs. When medically stable he will be discharged to home. He states he will either use [employer] van or his sister for transportation home on discharge. He states his sister is his HPOA, Jarvis. JIE GUTIERREZ
--- NOTE | 2019-11-23 11:00 | NUR ---
Occupational Therapy evaluation completed and POC established. Recommend OT for energy conservation/work simplification, functional transfers and safety with wheeled walker and ADl training per pOC. Precautions include: BLE edema,fluid restrictions,IV UE,moderate complexity level 24178. Recommend OT per poc and return home alone with home health SN, OT,PT. Thank you. Kelly Cintron OTR/L
--- NOTE | 2019-11-23 11:05 | NUR ---
PHYSICAL THERAPY Chris completed moderate level of complexity 58552 recomend home w HH and family support/assist pt refuses any kind of rehab. PT to work on tranfers short distance functional amb w AD, balance/strengthening and safety. Aubrie Guadarrama PT
[2019-11-23 12:00] VITALS: BP 121/75
--- NOTE | 2019-11-23 14:33 | NUR ---
PT SITTING UP IN CHAIR AT THIS TIME. RESPIRATIONS UNLABORED. THERAPY WORKING WITH PATIENT. CALL LIGHT IN REACH.
--- NOTE | 2019-11-23 14:45 | NUR ---
OT NOTE Pt was seen this P.M. 1:1 for 30 minute OT session. Upon arrival pt was sitting upright in the recliner. Pt identified by name and and had no complaints at this time. While sitting in the recliner requested for pt to fernando and doff B shoes (pt was not wearing socks due to dressings on BLE's). Pt was unable to reach his feet resulting in pt being educated on compensatory technique of bringing his legs up over his knee. Pt was able however reported that his knees are some days hurting so will not always be able to complete that way. Pt was then educated and demonstrated on use of LB adaptive equipment for increased I in LB dressing and bathing. Pt doffed shoes with use of clay processing factory worker and Jay for assist with sequencing. Pt then attempted to fernando socks with use of sock aid and pt required modA and reported "I don't think I like this thing. I would prefer to keep doing it my way." Pt was then educated on use of long handled sponge for lower body bathing and for his back. Simulated bathing with long handled sponge and pt was able to complete with supervision. Pt then completed multiple sit to stand tranfers from chair level with Jay and use of w/w for UE support. Challenged pt's static standing tolerance needed for increased I in self care tasks and functional transfers, pt was able to tolerate aprox 45-60 seconds at a time before sitting due to fatigue. Pt was left sitting upright in the recliner with call light in hand, tray table in place, and phone in reach. COntinue with rec D/C plan to home with home health. MADHU Danielle/Taye
[2019-11-23 16:00] VITALS: BP 125/76
[2019-11-23 20:00] VITALS: BP 108/66
--- NOTE | 2019-11-23 20:05 | NUR ---
PATIENT MEDICATED WITH MUCINEX PER PRN ORDER AND PATIENT REQUEST FOR C/O COUGH. SEE EMAR. REINFORCED USE OF CALL LIGHT.
[2019-11-24] VITALS: BP 125/70
[2019-11-24 06:14] LABS: BASO % 0.8 % (0.0-1.0); EOS # 0.1 10*3/uL (0.0-0.4); EOS % 2.6 % (1.0-4.0); HEMATOCRIT 29.4 % (42.0-52.0); HEMOGLOBIN 8.6 g/dl (14.0-18.0); LYMPH # 0.9 10*3/uL (1.3-4.4); LYMPH % 18.6 % (27.0-41.0); MEAN CELL VOLUME 87.8 fl (80.0-94.0); MEAN CORPUSCULAR HGB 25.7 pg (27.0-31.0); MEAN CORPUSCULAR HGB CONC 29.3 g/dl (33.0-37.0); MEAN PLATELET VOLUME 9.8 fl (9.6-12.3); MONO # 0.5 10*3/uL (0.1-1.0); MONO % 10.1 % (3.0-9.0); NEUT # 3.3 10*3/uL (2.3-7.9); NEUT % 67.5 % (47.0-73.0); PLATELET COUNT AUTOMATED 181 10*3/uL (130-400); RED BLOOD COUNT 3.35 10*6/uL (4.50-5.90); RED CELL DISTRI WIDTH 16.3 % (0-14.5)
[2019-11-24 06:24] LABS: INTERNATIONAL NORM RATIO 1.9 (2.0-3.5)
[2019-11-24 06:30] LABS: ALBUMIN 3.2 gm/dl (3.1-4.5); CREATININE 1.62 mg/dL (0.70-1.30); TOTAL PROTEIN 6.1 gm/dL (6.4-8.2)
--- NOTE | 2019-11-24 07:30 | NUR ---
TOOK OVER CARE OF PT AT THIS TIME. PT SITTING UP AT SIDE OF BED. PT ASSISTED TO STANDING AND VOIDS INTO URINAL FOR [address]RIATE [address]. PT DENIES ANY DISTRESS THIS MORNING. RESPIRATIONS UNLABORED. PT ASSISTED BACK TO BED AND ASSISTED WITH ORDERING BREAKFAST. WILL CONTINUE TO MONITOR. CALL LIGHT IN REACH.
[2019-11-24 08:00] VITALS: BP 130/72
--- NOTE | 2019-11-24 09:00 | NUR ---
Telephone Surveyor in to see patient. He is sitting up in his bedside chair without distress noted. Discussed BHU and he is agreeable. He states he sees things when they are not really there. Examples he gave were a mouse on the floor but it was the throw rug, things in the yard, dogs and cats in the guillory, the cat was moving a book stand, when he was in [facility] he saw ants all of the floor and crawling up in chair while he was eating his lunch, but he states when he blinks it all goes away. He does say that he has double vision. Discharge plan undecided at this time.
--- NOTE | 2019-11-24 09:05 | NUR ---
PHYSICAL THERAPY Patient seen this am 1:1 for therapy visit and was resting supine in bed upon therapist arrival. Patient identified by name / and presented with B LE gauze wraps, including B LE mild edema. Patient transfers supine to sit EOB with CGA x 1, needing a few minutes to collect himself. Patient then performed several sit to stand transfers, MOD A x 2, use of wh walker standing support secondary to c/o increased B LE weakness and history of B knee buckling. Patient completed SPT to bedside chair, MIN A x 2, wh walker, demonstrating POOR step sequence, decreased posture and quick onset of fatigue. Following brief rest, patient completed several B LE therex, all planes, x 10 reps each without c/o. Patient remained in bedside chair with LE's elevated, call light, tray table and telephone. Will continue per POC as tolerated, total treatment time 15 minutes. Rogerio Schmidt, SPECTROSCOPIST
--- NOTE | 2019-11-24 09:30 | NUR ---
OT NOTE Pt was seen this A.M. 1:1 for 15 minute OT session. Upon arrival pt was supine in bed. Pt identified by name and and had no complaints at this time. Pt transferred supine to sit EOB with CGA. While sitting EOB pt donned B shoes with SBA while bringing his leg up to his knee level. Pt then donned gown with SBA. Sit to stand completed from bed level with matilde and use of w/w for UE support. Challenged pt's static standing tolerance needed for increased I in self care tasks and functional transfers. Pt was able to tolerate aprox 45 seconds at a time before sitting due to fatigue. Pt was left sitting upright in the recliner with call light in hand, tray table in place, and phone in reach. Continue with rec D/C plan to home with home health. MADHU Danielle/Taye
--- NOTE | 2019-11-24 11:09 | NUR ---
Dr. Washburn notified of wound care recommendations.
[2019-11-24 12:00] VITALS: BP 136/68
--- NOTE | 2019-11-24 14:42 | NUR ---
PHYSICAL THERAPY CO-SIGN I approve of the Physical Therapy notes written above. Aubrie Guadarrama PT
[2019-11-24 16:00] VITALS: BP 107/56
--- NOTE | 2019-11-24 16:55 | NUR ---
PT GIVEN TYLENOL FOR C/O HEADACHE. WILL MONITOR FOR EFFECTIVENESS. CALL LIGHT IN REACH.
--- NOTE | 2019-11-24 16:56 | NUR ---
PT DENIES WANTING A LAXATIVE FOR NO BOWEL MOVEMENT X 3 DAYS. PT STATES THAT HE "USUALLY GOES ON THE FOURTH DAY". WILL CONTINUE TO MONITOR. PT BOWEL SOUNDS ARE NORMOACTIVEX4 QUADS. NO COMPLAINTS OF NAUSEA. CALL LIGHT IN REACH.
--- NOTE | 2019-11-24 18:20 | NUR ---
Hep Lock discontinued to right hand Site asymptomatic. Pressure applied. Sterile dressing applied. ALONDRA ROY
--- NOTE | 2019-11-24 18:25 | NUR ---
IV started left antecubital with #22 protective cath after 0 attempts. Site prepped with alcohol. Sterile dressing applied. Patient tolerated procedure well. ALONDRA ROY
[2019-11-24 20:00] VITALS: BP 130/67
--- NOTE | 2019-11-24 20:32 | NUR ---
24 HR chart check completed.
--- NOTE | 2019-11-24 23:25 | NUR ---
PATIENT C/O MONITOR ELECTRODES ITCHING AND HE DID NOT WANT TO WEAR THE MONITOR ANYMORE.
[2019-11-25] VITALS: BP 103/80
--- NOTE | 2019-11-25 06:15 | NUR ---
IV STARTED MIN RIGHT ARM BY TAHIR Colin
[2019-11-25 06:21] LABS: BASO # 0.1 10*3/uL (0.0-0.1); BASO % 0.9 % (0.0-1.0); EOS # 0.2 10*3/uL (0.0-0.4); HEMATOCRIT 31.1 % (42.0-52.0); HEMOGLOBIN 8.8 g/dl (14.0-18.0); LYMPH # 0.9 10*3/uL (1.3-4.4); LYMPH % 17.1 % (27.0-41.0); MEAN CELL VOLUME 89.1 fl (80.0-94.0); MEAN CORPUSCULAR HGB 25.2 pg (27.0-31.0); MEAN CORPUSCULAR HGB CONC 28.3 g/dl (33.0-37.0); MEAN PLATELET VOLUME 10.1 fl (9.6-12.3); MONO # 0.5 10*3/uL (0.1-1.0); MONO % 8.9 % (3.0-9.0); NEUT # 3.8 10*3/uL (2.3-7.9); NEUT % 69.9 % (47.0-73.0); PLATELET COUNT AUTOMATED 208 10*3/uL (130-400); RED BLOOD COUNT 3.49 10*6/uL (4.50-5.90); RED CELL DISTRI WIDTH 16.7 % (0-14.5); WHITE BLOOD COUNT 5.4 10*3/uL (4.8-10.8)
[2019-11-25 06:43] LABS: ALBUMIN 3.3 gm/dl (3.1-4.5); CREATININE 1.66 mg/dL (0.70-1.30); POTASSIUM 4.4 mmol/L (3.5-5.1); TOTAL PROTEIN 6.4 gm/dL (6.4-8.2)
[2019-11-25 07:05] LABS: FERRITIN 32.7 ng/mL (22.0-322.0); VITAMIN D, 25-HYDROXY 51.3 ng/mL (30-100)
[2019-11-25 08:00] VITALS: BP 110/65
--- NOTE | 2019-11-25 08:00 | NUR ---
MIRALAX EFFECTIVE. PATIENT UP TO BSC FOR VERY LARGE BM.
--- NOTE | 2019-11-25 08:18 | NUR ---
PT MEDICATED WITH PO NORCO PER PRN ORDER FOR C/O LOWER BACK PAIN RADIATING DOWN TO HIS LEGS. RATES PAIN 05/20. WILL MONITOR EFFECTIVENESS. CALL LIGHT WITHIN REACH.
--- NOTE | 2019-11-25 09:30 | NUR ---
FARIHA EFFECTIVE PER PT.
[2019-11-25 12:00] VITALS: BP 101/66
[2019-11-25 16:00] VITALS: BP 117/67
--- NOTE | 2019-11-25 16:00 | NUR ---
IN TO SEE PATIENT.
--- NOTE | 2019-11-25 16:39 | NUR ---
IN TO SEE PATIENT.
--- NOTE | 2019-11-25 19:30 | NUR ---
TOOK OVER CARE OF PT. PT SITTING UP AT SIDE OF BED. ALERT ORIENTED AND PLEASANT. NO S/S OF DISTRESS AT THIS TIME. PT HAS NO COMPLAINTS. RESPIRATIONS UNLABORED ON ROOM AIR. IV SITE IS FLUSHED. SITE IS PATENT AND GIVES GOOD BLOOD RETURN. PT ADVISED TO USE CALL LIGHT FOR ANY NEEDS. CALL LIGHT IN REACH.
[2019-11-25 20:00] VITALS: BP 130/87
[2019-11-26] VITALS: BP 139/81
--- NOTE | 2019-11-26 01:16 | NUR ---
PT RESTING IN BED,SLEEPING. RESPIRATIONS EASY AND UNLABORED. NO S/S OF DISTRESS. SAFETY MEASURES IN PLACE. CALL LIGHT IN REACH.
--- NOTE | 2019-11-26 04:39 | NUR ---
Shift chart check completed.
--- NOTE | 2019-11-26 06:00 | NUR ---
Hep Lock discontinued due to becoming dislodged. Site asymptomatic. Pressure applied. Sterile dressing applied. ALONDRA ROY
--- NOTE | 2019-11-26 06:15 | NUR ---
IV started right hand with #22 protective cath after 1 attempts. Site prepped with alcohol. Sterile dressing applied. Patient tolerated procedure well. IV infusing at 100 cc/hr. ALONDRA ROY
[2019-11-26 06:53] LABS: INTERNATIONAL NORM RATIO 1.7 (2.0-3.5)
[2019-11-26 08:00] VITALS: BP 134/89
[2019-11-26 12:00] VITALS: BP 132/89
--- NOTE | 2019-11-26 15:27 | NUR ---
LUANA CHAUDHARI IN TO SEE PATIENT.
[2019-11-26 16:00] VITALS: BP 123/72
--- NOTE | 2019-11-26 17:47 | NUR ---
PT UP IN CHAIR. RESPIRATIONS EASY, REGULAR AT REST. PERIODS OF HALLUCINATIONS. ATTEMPTED TO REORIENT: UNSUCCESSFUL. HX OF HALLUCINATIONS AND HAS BEEN SEEN BY PSYCH. PATIENT AND FAMILY REFUSING RECOMMENDED MEDICATION. WILL CONTINUE TO MONITOR. DINNER TRAY SET UP. CALL LIGHT WITHIN REACH.
--- NOTE | 2019-11-26 19:37 | NUR ---
PATIENT SITTING IN CHAIR AT BEDSIDE. DENIES NEEDS AT THIS TIME. IV ANTIBIOTICS INFUSING WITHOUT DIFFICULTY. BED IN LOWEST POSITION, CALL LIGHT IN REACH
[2019-11-26 20:00] VITALS: BP 125/77
[2019-11-27] VITALS: BP 134/93
--- NOTE | 2019-11-27 02:35 | NUR ---
RESPIRATORY MADE AWARE OF PATIENT REQUESTING BREATHING TREATMENT
[2019-11-27 06:16] LABS: BASO % 0.2 % (0.0-1.0); HEMATOCRIT 28.8 % (42.0-52.0); HEMOGLOBIN 8.3 g/dl (14.0-18.0); LYMPH # 0.7 10*3/uL (1.3-4.4); LYMPH % 10.5 % (27.0-41.0); MEAN CELL VOLUME 88.1 fl (80.0-94.0); MEAN CORPUSCULAR HGB 25.4 pg (27.0-31.0); MEAN CORPUSCULAR HGB CONC 28.8 g/dl (33.0-37.0); MEAN PLATELET VOLUME 10.2 fl (9.6-12.3); MONO # 0.3 10*3/uL (0.1-1.0); MONO % 5.1 % (3.0-9.0); NEUT # 5.4 10*3/uL (2.3-7.9); NEUT % 83.7 % (47.0-73.0); PLATELET COUNT AUTOMATED 202 10*3/uL (130-400); RED BLOOD COUNT 3.27 10*6/uL (4.50-5.90); WHITE BLOOD COUNT 6.5 10*3/uL (4.8-10.8)
[2019-11-27 06:43] LABS: CREATININE 1.76 mg/dL (0.70-1.30); POTASSIUM 4.3 mmol/L (3.5-5.1)
[2019-11-27 06:49] LABS: INTERNATIONAL NORM RATIO 2.1 (2.0-3.5)
[2019-11-27 08:00] VITALS: BP 119/66
--- NOTE | 2019-11-27 09:00 | NUR ---
Bench Worker Apprentice in to see patient. He is sitting up in his bedside chair without distress noted. No new needs or request at this time. Discharge plan undecided at this time, possibly BHU once medically stable.
--- NOTE | 2019-11-27 09:00 | NUR ---
Pt was seen by OT x 25 minutes beginning with sit to stand x 2 episodes with CGA for safety reasons. Pt was able to tolerate standing approximately 4 minutes while grooming with CGA. Educated pt with EC/WS techniques to enhance ADLs activities. Pt seemed to understand EC/WS by giving an example. Continue with OT POC. Call light is within reach. Erinn CARD/Taye
--- NOTE | 2019-11-27 11:58 | NUR ---
PHYSICAL THERAPY IN 11:57 AM Patient was approached for therapy session this morning and patient declined therapy session this date saying," he did not feel that he needs PT and he cannot walk". Patient says that he does therapy exercises on his own at home and walks very little and his knees buckle at times, so he doesn't want to risk falling. GIANFRANCO FALK CONTENT SPECIALIST
[2019-11-27 12:00] VITALS: BP 125/73
--- NOTE | 2019-11-27 14:33 | NUR ---
Pt was seen for OT approximately 15 minutes this pm. Pt verbalized "not wanting to stand" for an OT activity but "would like to wash my face & hands". With set up, pt performed washing face and hands followed by combing hair. Needed assist to comb hair back of head. Continue with OT POC. Sister was present during session. Call light was within reach. Erinn SCHWARZ
[2019-11-27 16:00] VITALS: BP 115/59
--- NOTE | 2019-11-27 19:32 | NUR ---
PATIENT SITTING IN CHAIR AT BEDSIDE WITH IV INFUSING WITHOUT DIFFICULTY. DENIES NEEDS AT THIS TIME. BED IN LOWEST POSITION, CHAIR LOCKED, CALL LIGHT IN REACH
[2019-11-27 20:00] VITALS: BP 126/70
[2019-11-28] VITALS: BP 132/85
--- NOTE | 2019-11-28 00:49 | NUR ---
24 HR chart check completed.
[2019-11-28 06:19] LABS: INTERNATIONAL NORM RATIO 2.4 (2.0-3.5)
[2019-11-28 08:00] VITALS: BP 142/76
--- NOTE | 2019-11-28 10:12 | NUR ---
Pt was seen for OT x 15 minutes beginning with sit to stand at bedside with CGA. Transfer to chair with CGA. Set up required for grooming. To enhance endurance for ADLs, performed "towel exercises" x 10 reps x 4 sets with cues for correct procedures. Continue with OT POC. Erinn SCHWARZ
--- NOTE | 2019-11-28 10:13 | NUR ---
PHYSICAL THERAPY TREATMENT TIME: ;20 AM - 09:45 AM 25 MINUTES Patient presented to therapy in sitting on EOB with no spO2. Patient gives informed consent for treatment. Patient was identified by name and on wristband. Patient performed sit to stand from EOB with CGA X 1 with verbal cues for pushing off the bed with hands. Patient stood at Walker for 1 minute and then SPT to in front of bedside chair ,then patient sat in chair with MIN A X 1 with verbal cues for putting hands back on armrests of chair. Patient performed 30 seconds sit to stand test from bedside chair with results recorded as 3 sit to stands in 30 seconds with use of hands to push off armrests of chair. Patient then sat in bedside chair and performed seated bilateral LE ther ex x 10 reps each in all planes of movement for strengthneing the LEs in order to improve patient's functional mobility ,Including LAQs, marches, heel/toe raises, hip abduction. Patient was left in bedside chair with chair alarm tested and attached to patient, call light within reach and tray table in front of patient. Patient was 1:1 with this ANGLE ROLL OPERATOR for 25 minutes total. GIANFRANCO FALK ANGLE ROLL OPERATOR
[2019-11-28 10:20] LABS: HEMATOCRIT 31.3 % (42.0-52.0); LYMPH # 0.5 10*3/uL (1.3-4.4); LYMPH % 5.8 % (27.0-41.0); MEAN CELL VOLUME 88.7 fl (80.0-94.0); MEAN CORPUSCULAR HGB 25.5 pg (27.0-31.0); MEAN CORPUSCULAR HGB CONC 28.8 g/dl (33.0-37.0); MEAN PLATELET VOLUME 10.5 fl (9.6-12.3); MONO # 0.4 10*3/uL (0.1-1.0); MONO % 4.1 % (3.0-9.0); NEUT # 7.8 10*3/uL (2.3-7.9); NEUT % 89.5 % (47.0-73.0); PLATELET COUNT AUTOMATED 226 10*3/uL (130-400); RED BLOOD COUNT 3.53 10*6/uL (4.50-5.90); WHITE BLOOD COUNT 8.7 10*3/uL (4.8-10.8)
[2019-11-28 10:22] LABS: CREATININE 1.84 mg/dL (0.70-1.30); POTASSIUM 4.2 mmol/L (3.5-5.1)
[2019-11-28] MEDS ORDERED: DOXYCYCLINE100 MG PO (10:43)
[2019-11-28] MEDS ORDERED: PREDNISONE10 MG PO (10:43)
[2019-11-28 12:00] VITALS: BP 137/72
--- NOTE | 2019-11-28 13:45 | NUR ---
Discharge instructions reviewed with patient/family. Patient receptive and verbalizes understanding. Follow-up care arranged. Written instructions given to patient/family. HEPLOCK DISCONTINUED. PATIENT REFUSING WOUND PHOTOS. TAKEN OFF FLOOR BY WHEELCHAIR WITH SISTER. KIESHA HADDAD
--- NOTE | 2019-11-29 07:50 | NUR ---
PHYSICAL THERAPY CO-SIGN I approve of the Physical Therapy notes written above. Aubrie Guadarrama PT
--- NOTE | 2019-11-29 07:52 | NUR ---
OCCUPATIONAL THERAPY CO-SIGN I approve of the Occupational Therapy notes written above. JOHN JOE, OTR/L
== END 2019-11-28 15:02 | disposition home or self-care (01) | DRG 291 ==
LOC: 5E 14:53
PROVIDERS: Hospitalist; Internal Medicine Nephrology; ADMIT Internal Medicine
DX: I13.0 Hypertensive heart and chronic kidney disease with heart failure and stage 1 through stage 4 chronic kidney disease, or unspecified chronic kidney disease (principal); I50.33 Acute on chronic diastolic (congestive) heart failure; N17.0 Acute kidney failure with tubular necrosis; I48.11 Longstanding persistent atrial fibrillation; J44.1 Chronic obstructive pulmonary disease with (acute) exacerbation; F33.3 Major depressive disorder, recurrent, severe with psychotic symptoms; J90 Pleural effusion, not elsewhere classified; E11.22 Type 2 diabetes mellitus with diabetic chronic kidney disease; N18.3 Chronic kidney disease, stage 3 (moderate); E53.8 Deficiency of other specified B group vitamins; E87.8 Other disorders of electrolyte and fluid balance, not elsewhere classified; E11.65 Type 2 diabetes mellitus with hyperglycemia; D63.1 Anemia in chronic kidney disease; E78.2 Mixed hyperlipidemia; I87.2 Venous insufficiency (chronic) (peripheral); E03.9 Hypothyroidism, unspecified; M17.10 Unilateral primary osteoarthritis, unspecified knee; E83.9 Disorder of mineral metabolism, unspecified; G25.81 Restless legs syndrome; F43.21 Adjustment disorder with depressed mood; D50.9 Iron deficiency anemia, unspecified; G47.33 Obstructive sleep apnea (adult) (pediatric); Z86.14 Personal history of Methicillin resistant Staphylococcus aureus infection; Z90.49 Acquired absence of other specified parts of digestive tract; Z87.891 Personal history of nicotine dependence; Z82.3 Family history of stroke; Z82.49 Family history of ischemic heart disease and other diseases of the circulatory system; Z88.1 Allergy status to other antibiotic agents; Z88.0 Allergy status to penicillin; Z88.8 Allergy status to other drugs, medicaments and biological substances; Z79.899 Other long term (current) drug therapy; Z79.01 Long term (current) use of anticoagulants; D72.819 Decreased white blood cell count, unspecified

== ENCOUNTER 2019-12-19 09:17 | Inpatient (IN) | payer MEDICARE, MEDICAID ==
[~2019-12-19] VITALS: Ht 193 cm; Wt 119.4 kg
[~2019-12-19 09:17] MED LIST changes: +ADVAIR HFA 230-12 GM INH; +DOXYCYCLINE100 MG PO; +LEVOTHYROXINE75 MCG PO; +MUCINEX DM 30/61 TAB PO; +PROAIR HFA8.5 GM INH
[2019-12-19 09:23] VITALS: BP 132/71
[2019-12-19 09:43] LABS: BASO # 0.1 10*3/uL (0.0-0.1); BASO % 0.9 % (0.0-1.0); EOS # 0.3 10*3/uL (0.0-0.4); EOS % 3.9 % (1.0-4.0); HEMATOCRIT 32.8 % (42.0-52.0); HEMOGLOBIN 9.8 g/dl (14.0-18.0); LYMPH # 0.9 10*3/uL (1.3-4.4); LYMPH % 13.7 % (27.0-41.0); MEAN CELL VOLUME 90.4 fl (80.0-94.0); MEAN CORPUSCULAR HGB CONC 29.9 g/dl (33.0-37.0); MONO # 0.5 10*3/uL (0.1-1.0); MONO % 7.4 % (3.0-9.0); NEUT # 4.7 10*3/uL (2.3-7.9); NEUT % 73.8 % (47.0-73.0); PLATELET COUNT AUTOMATED 209 10*3/uL (130-400); RED BLOOD COUNT 3.63 10*6/uL (4.50-5.90); RED CELL DISTRI WIDTH 19.5 % (0-14.5); WHITE BLOOD COUNT 6.4 10*3/uL (4.8-10.8)
[2019-12-19 09:54] LABS: ACT PARTIAL THROMBO TIME 43.6 SECONDS (20.0-32.1); INTERNATIONAL NORM RATIO 1.8 (2.0-3.5)
[2019-12-19 09:58] LABS: ALBUMIN 3.2 gm/dl (3.1-4.5); ALKALINE PHOSPHATASE 105 U/L (45-117); BUN 26 mg/dl (7-24); CHLORIDE 105 mmol/L (98-107); CREATININE 1.63 mg/dL (0.70-1.30); POTASSIUM 4.2 mmol/L (3.5-5.1); SGOT/AST 29 IU/L (3-35); SGPT/ALT 35 U/L (12-78); SODIUM 140 mmol/L (136-145); TOTAL PROTEIN 6.5 gm/dL (6.4-8.2)
[2019-12-19 09:59] LABS: TROPONIN I < 0.015 ng/ml (<0.045)
--- NOTE | 2019-12-19 09:59 | NUR ---
PT RESTING IN BED WIOTH NO COMPLAINTS, DENIES DIZZINESS AT THIS TIME, CALL LIGHT IN REACH. WILL MONITOR.
[2019-12-19 10:00] VITALS: BP 137/73
[2019-12-19 10:54] LABS: BILIRUBIN NEGATIVE (NEGATIVE); BLOOD NEGATIVE (NEGATIVE); CLARITY SL CLOUDY (CLEAR); COLOR YELLOW (YELLOW); GLUCOSE NEGATIVE (NEGATIVE); KETONE NEGATIVE (NEGATIVE)
[2019-12-19 10:55] LABS: BACTERIA 1+; LEUKO ESTERASE NEGATIVE (NEGATIVE); MUCOUS 1+; NITRITE NEGATIVE (NEGATIVE); UROBILINOGEN 0.2 E.U./dl (0.2-1.0)
--- NOTE | 2019-12-19 11:42 | NUR ---
PT RESTING IN BED, DENIES DIZZINESS. BREAKFAST ORDERED. CALL LIGHT IN REACH.
[2019-12-19 11:43] VITALS: BP 131/69
[2019-12-19 12:10] VITALS: BP 149/78
--- NOTE | 2019-12-19 12:10 | NUR ---
A 79, admitted to , under the services of IRMA Parisi MD with a diagnosis of SYNCOPE,DIZZINESS. Chief complaint is DIZZINESS. Patient arrived via bed from ER. Monitor applied. Initial assessment completed. Vital signs taken and recorded. IRMA PARISI MD notified of admission to the unit. Orders received. See assessment for past medical history, medications and allergies. Patient and/or family oriented to unit. [facility] visitation policy reviewed. Clothing/patient valuable form completed. ENRIQUE SALES
--- NOTE | 2019-12-19 12:36 | NUR ---
ASSISTED RN DURING ADMISSION. NURSE ADVISED MED REC NEEDS COMPLETED. KAINNA Fatima RN WILL DOCUMENT INPATIENT ASSESSMENT.
--- NOTE | 2019-12-19 13:36 | NUR ---
DR. LUCERO NOTIFIED OF CONSULT.
--- NOTE | 2019-12-19 14:00 | NUR ---
Received call from Lev from [employer]. Patient has 3 hours of personal care from [employer] home health care aides on Mondays and . He has Mom's meals, 14 meals weekly. He has an emergency button from [employer]. He also has a new wheelchair from [employer], O2, rollator, nebulizer, and shower bench. Please contact Lev at [phone] when discharge is known on the patient.
--- NOTE | 2019-12-19 15:20 | NUR ---
Shift chart check completed.24 HR chart check completed.
[2019-12-19 16:00] VITALS: BP 118/61
--- NOTE | 2019-12-19 16:54 | NUR ---
ON ASSESSMENT PATIENT DENIES ANY DIZZINESS BUT DOES C/O CONSTIPATION. I BROUGHT HIS DAILY MIRALAX TO THE ROOM AND PT STATED "THAT DOESN'T WORK FOR ME". DR LUCERO GAVE ORDER FOR 10MG DULCOLAX DAILY PRN AND DOSE GIVEN. BILATERAL LOWER LEG EDEMA WITH TUBIGRIPS IN PLACE. NO VOICED C/O PAIN.
[2019-12-19 20:00] VITALS: BP 138/84
--- NOTE | 2019-12-19 20:11 | NUR ---
1936 RESTING IN BED WITH HOB ELEVATED. SIDE RAILS UP X'S 2. CALL LIGHT IN REACH. DENIES C/O'S DIZZINESS OR LIGHT HEADEDNESS AT PRESENT TIME. ALERT AND ORIENTED. HEP LOCK INTACT. NO DISTRESS NOTED.
--- NOTE | 2019-12-19 22:05 | NUR ---
RESTING IN BED WITH EYES CLOSED. APPEARS TO BE SLEEPING.
[2019-12-20] VITALS: BP 122/58
--- NOTE | 2019-12-20 02:14 | NUR ---
REMAINS SLEEPING WITHOUT DISTRESS.
--- NOTE | 2019-12-20 06:03 | NUR ---
AWAKE. REMAINS WITHOUT C/O'S DIZZINESS. HEP LOCK INTACT. CONDITION GUARDED.
--- NOTE | 2019-12-20 06:21 | NUR ---
BIJAL LEES [id number] Please refer to the physician's history and physical for past medical history, comorbid conditions, and allergies. Diagnosis: DIZZINESS NEAR SYNCOPE ACUTE ON CHRONIC HEART FAIL Nicolas Score: 18,AT RISK WOUND DESCRIPTIONS: Wound Number: 1 Right upper arm red and blanchable at time of assessment. No open areas or drainage noted at time of assessment to right upper arm. Patient stated he has never had blood drawn from his right arm they have been taking blood from his left arm. Patient stated this tourniquet was applied when they started his IV in his right arm. Surface the patient is resting on: Isoflex SKIN PREVENTION RECOMMENDATION: 1. Pressure redistribution support surface as appropriate 2. Elevate heels 3. Remove boots/TEDS every shift and reapply 4. Head of bed 30 degrees as tolerated 5. Assess nutrition and hydration 6. Manage moisture 7. Avoid the use of containment devices while in bed 8. Use absorptive products on surfaces limit layers of linens on bed 9. Turn and reposition every 1-2 hours in bed and every 1 hour in chair as tolerated 10. Weight shifts every 15 minutes while up in chair 11. Offloading with pillows or device to keep heels elevated off bed 12. Monitor skin at least every shift 13. Inspect under medical devices twice a day
[2019-12-20 06:29] LABS: INTERNATIONAL NORM RATIO 1.8 (2.0-3.5)
[2019-12-20 06:32] LABS: CREATININE 1.49 mg/dL (0.70-1.30); POTASSIUM 4.1 mmol/L (3.5-5.1)
--- NOTE | 2019-12-20 07:38 | NUR ---
BIJAL LEES [id number] Please refer to the physician's history and physical for past medical history, comorbid conditions, and allergies. Diagnosis: DIZZINESS NEAR SYNCOPE ACUTE ON CHRONIC HEART FAIL Nicolas Score: 18,AT RISK WOUND DESCRIPTIONS: Wound Number: 1 Right upper arm red and blanchable at time of assessment. No open areas or drainage noted at time of assessment to right upper arm. Patient stated he has never had blood drawn from his right arm they have been taking blood from his left arm. Patient stated this tourniquet was applied when they started his IV in his right arm. No skin impairment not at time of assessment. Surface the patient is resting on: Isoflex SKIN PREVENTION RECOMMENDATION: 1. Pressure redistribution support surface as appropriate 2. Elevate heels 3. Remove boots/TEDS every shift and reapply 4. Head of bed 30 degrees as tolerated 5. Assess nutrition and hydration 6. Manage moisture 7. Avoid the use of containment devices while in bed 8. Use absorptive products on surfaces limit layers of linens on bed 9. Turn and reposition every 1-2 hours in bed and every 1 hour in chair as tolerated 10. Weight shifts every 15 minutes while up in chair 11. Offloading with pillows or device to keep heels elevated off bed 12. Monitor skin at least every shift 13. Inspect under medical devices twice a day
[2019-12-20 08:00] VITALS: BP 132/72
[2019-12-20 12:00] VITALS: BP 130/63
--- NOTE | 2019-12-20 14:20 | NUR ---
Discharge instructions reviewed with patient/family. Patient receptive and verbalizes understanding. Follow-up care arranged. Written instructions given to patient/family. HEPLOCK DISCONTINUED. REAL ESTATE ACCOUNTANT REMOVED. PATIENT TAKEN OFF FLOOR BY WHEELCHAIR WITH BRISKET PULLER. KIESHA HADDAD
== END 2019-12-20 14:20 | disposition home or self-care (01) | DRG 683 ==
LOC: ED 09:17 → EDHOLD 11:42 → 4E 11:42
PROVIDERS: Emergency Medicine; Nurse Practitioner Family; ADMIT Internal Medicine
DX: N17.9 Acute kidney failure, unspecified (principal); I13.0 Hypertensive heart and chronic kidney disease with heart failure and stage 1 through stage 4 chronic kidney disease, or unspecified chronic kidney disease; N18.3 Chronic kidney disease, stage 3 (moderate); E11.65 Type 2 diabetes mellitus with hyperglycemia; I50.9 Heart failure, unspecified; E78.5 Hyperlipidemia, unspecified; M19.90 Unspecified osteoarthritis, unspecified site; G25.81 Restless legs syndrome; M81.0 Age-related osteoporosis without current pathological fracture; I48.91 Unspecified atrial fibrillation; J44.9 Chronic obstructive pulmonary disease, unspecified; I87.2 Venous insufficiency (chronic) (peripheral); E55.9 Vitamin D deficiency, unspecified; E66.01 Morbid (severe) obesity due to excess calories; G47.429 Narcolepsy in conditions classified elsewhere without cataplexy; N43.3 Hydrocele, unspecified; E11.22 Type 2 diabetes mellitus with diabetic chronic kidney disease; Z88.1 Allergy status to other antibiotic agents; Z88.0 Allergy status to penicillin; Z88.8 Allergy status to other drugs, medicaments and biological substances; Z98.42 Cataract extraction status, left eye; Z98.41 Cataract extraction status, right eye; Z90.49 Acquired absence of other specified parts of digestive tract; Z82.49 Family history of ischemic heart disease and other diseases of the circulatory system; Z82.3 Family history of stroke; Z83.3 Family history of diabetes mellitus; Z68.31 Body mass index [BMI] 31.0-31.9, adult

== ENCOUNTER → 2020-07-09 | Outpatient (CLI) | payer MEDICARE, MEDICAID | END | disposition home or self-care (01) | LOC: CARD 09:55 | PROVIDERS: ATTEND Internal Medicine | DX: R42 Dizziness and giddiness (principal) ==

== ENCOUNTER 2020-10-04 17:40 | Inpatient (IN) | payer MEDICARE, MEDICAID ==
[~2020-10-04] VITALS: Ht 193 cm; Wt 117.2 kg
[2020-10-04 17:49] VITALS: BP 121/59
[2020-10-04 18:10] LABS: BASO % 0.2 % (0.0-1.0); EOS % 0.7 % (1.0-4.0); HEMATOCRIT 37.1 % (42.0-52.0); LYMPH # 0.5 10*3/uL (1.3-4.4); LYMPH % 9.1 % (27.0-41.0); MEAN CORPUSCULAR HGB 26.9 pg (27.0-31.0); MEAN CORPUSCULAR HGB CONC 30.2 g/dl (33.0-37.0); MEAN PLATELET VOLUME 10.3 fl (9.6-12.3); MONO # 0.3 10*3/uL (0.1-1.0); MONO % 5.3 % (3.0-9.0); NEUT # 4.9 10*3/uL (2.3-7.9); NEUT % 83.7 % (47.0-73.0); PLATELET COUNT AUTOMATED 188 10*3/uL (130-400); RED BLOOD COUNT 4.17 10*6/uL (4.50-5.90); RED CELL DISTRI WIDTH 15.2 % (0-14.5); WHITE BLOOD COUNT 5.8 10*3/uL (4.8-10.8)
[2020-10-04 18:25] LABS: ALBUMIN 3.1 gm/dl (3.1-4.5); CREATININE 2.18 mg/dL (0.70-1.30); POTASSIUM 3.8 mmol/L (3.5-5.1); TOTAL PROTEIN 6.7 gm/dL (6.4-8.2); TROPONIN I 0.021 ng/ml (<0.045)
[2020-10-04 18:26] LABS: ACT PARTIAL THROMBO TIME 49.6 SECONDS (20.0-32.1); INTERNATIONAL NORM RATIO 2.5 (2.0-3.5)
--- NOTE | 2020-10-04 18:37 | NUR ---
PT RESTING WITH EYES CLOSED, POX 95% 2L. CALL LIGHT IN REACH.
--- NOTE | 2020-10-04 19:00 | NUR ---
REPORT FROM TEGAN HARO.
[2020-10-04 19:17] VITALS: BP 110/50
--- NOTE | 2020-10-04 20:02 | NUR ---
PATIENT RESTING IN BED. PATIENT APPEARS TO BE IN NO DISTRESS AT THIS TIME. RR EASY AND NON-LABORED. CALL LIGHT WITHIN REACH.
--- NOTE | 2020-10-04 20:47 | NUR ---
CONSULTED DR. COLLINS. DR. COLLINS ORDERED A D-DIMER STAT. THIS RN WILL NOTIFY DR. COLLINS OF THIS RESULT WHEN IT IS BACK.
--- NOTE | 2020-10-04 21:00 | NUR ---
UNABLE TO VERIFY PATIENTS MEDICATIONS D/T PHARMACY BEING CLOSED AND PATIENT IS UNSURE OF WHAT HE TAKES.
--- NOTE | 2020-10-04 21:49 | NUR ---
LAB ENTERED ROOM FOR D-DIMER.
--- NOTE | 2020-10-04 22:52 | NUR ---
DR. COLLINS NOTIFIED OF D-DIMER RESULT. DR. COLLINS STATES TO START HEPARIN PROTOCOL.
[2020-10-05] VITALS (10 sets, daily range): BP systolic 117–126; BP diastolic 54–104
--- NOTE | 2020-10-05 02:08 | NUR ---
EKG COMPLETED AT THIS TIME. PATIENT IS RESTING IN BED WITH EYES CLOSED. RR EASY AND NON-LABORED. CALL LIGHT WITHIN REACH. PATIENT APPEARS TO BE IN NO DISTRESS AT THIS TIME. NO COMPLAINTS FROM PATIENT AT THIS MOMENT.
--- NOTE | 2020-10-05 03:46 | NUR ---
PATIENT REQUESTING TO USE URINAL AT THIS TIME. RR EASY AND NON-LABORED. CALL LIGHT WITHIN REACH.
--- NOTE | 2020-10-05 05:27 | NUR ---
MOVED PATIENT FROM A ER BED TO AN INPATIENT BED. PATIENT IS RESTING WITH EASY NON-LABORED RR'S. APPEARS TO BE IN NO DISTRESS AT THIS TIME. CALL LIGHT WITHIN REACH.
[2020-10-05 05:56] LABS: ALBUMIN 2.7 gm/dl (3.1-4.5); CREATININE 1.74 mg/dL (0.70-1.30); POTASSIUM 3.4 mmol/L (3.5-5.1); TOTAL PROTEIN 5.9 gm/dL (6.4-8.2)
[2020-10-05 06:01] LABS: THYROID STIM HORMONE (HS) 1.08 uIU/ml (0.358-4.75)
[2020-10-05 06:12] LABS: BASO % 0.2 % (0.0-1.0); EOS % 0.4 % (1.0-4.0); HEMATOCRIT 34.3 % (42.0-52.0); LYMPH # 0.9 10*3/uL (1.3-4.4); LYMPH % 17.7 % (27.0-41.0); MEAN CELL VOLUME 88.6 fl (80.0-94.0); MEAN CORPUSCULAR HGB 26.9 pg (27.0-31.0); MEAN CORPUSCULAR HGB CONC 30.3 g/dl (33.0-37.0); MEAN PLATELET VOLUME 10.9 fl (9.6-12.3); MONO # 0.3 10*3/uL (0.1-1.0); MONO % 6.6 % (3.0-9.0); NEUT # 3.8 10*3/uL (2.3-7.9); NEUT % 74.7 % (47.0-73.0); PLATELET COUNT AUTOMATED 154 10*3/uL (130-400); RED BLOOD COUNT 3.87 10*6/uL (4.50-5.90); RED CELL DISTRI WIDTH 15.2 % (0-14.5)
--- NOTE | 2020-10-05 06:20 | NUR ---
PATIENT RESTING IN BED WITH EYES CLOSED. RR EASY AND NON-LABORED. CALL LIGHT WITHIN REACH. PATIENT HAS NO COMPLAINTS AT THIS TIME.
--- NOTE | 2020-10-05 06:50 | NUR ---
STOPPED HEPARIN INFUSION D/T APTT >139. PER PROTOCOL STOP INFUSION FOR 60 MINUTES AND REDUCE BY 3 UNITS/KG/HR.
--- NOTE | 2020-10-05 07:23 | NUR ---
REPORT RECIEVED FROM BRAXTON HARO
--- NOTE | 2020-10-05 08:11 | NUR ---
HEPERIN REDUCED BY 3UNITS/KG/HR PER PROTOCOL TO 1700
[2020-10-05 09:10] LABS: VITAMIN D, 25-HYDROXY 45.9 ng/mL (30-100)
[2020-10-05 09:11] LABS: FERRITIN 175.1 ng/mL (22.0-322.0)
--- NOTE | 2020-10-05 10:47 | NUR ---
PT COMPLAINING OF PAIN BACK AND LEGS TN REQUESTED STROMG PAIN MED PT GIVEN NORCO
--- NOTE | 2020-10-05 11:06 | NUR ---
ORDERED PT BREAKFAST PT NOW EATING NO OTHER REQUESTS
--- NOTE | 2020-10-05 12:21 | NUR ---
PTT 139 DR BLEDSOE NOTIFIED HEPARIN PLACED ON HOLD
--- NOTE | 2020-10-05 13:59 | NUR ---
REDUCE HEPARIN BY 3UNITS / KG/ HR PT WEIGHS 113 KG X 3 339 ROUNDED TO 340 TOTAL UNIT REDUCTION FROM 1700 UNITS TO HOUR PT NOW ON 1300 UNITS PER HOUR
--- NOTE | 2020-10-05 15:34 | NUR ---
HEPARIN D/C PER ORDER
--- NOTE | 2020-10-05 15:35 | NUR ---
PT SLEEPING NO SIGN OF DISTRESS
--- NOTE | 2020-10-05 19:45 | NUR ---
PT IS RESTING IN ROOM. VITALS ARE STABLE. WILL CONTINUE TO MONITOR.
[2020-10-06] VITALS (7 sets, daily range): BP systolic 107–138; BP diastolic 62–84
--- NOTE | 2020-10-06 01:08 | NUR ---
PT COMPLAINING OF PAIN. PT PROVIDED NORCO PER PHYSICIAN ORDERS.
--- NOTE | 2020-10-06 03:59 | NUR ---
PT IS RESTING IN BED. NO SIGNS OF ACUTE DISTRESS NOTED. WILL CONTINUE TO MONITOR. VSS.
[2020-10-06 06:03] LABS: BASO % 0.2 % (0.0-1.0); HEMATOCRIT 35.4 % (42.0-52.0); LYMPH # 0.5 10*3/uL (1.3-4.4); LYMPH % 8.4 % (27.0-41.0); MEAN CELL VOLUME 87.8 fl (80.0-94.0); MEAN CORPUSCULAR HGB CONC 30.8 g/dl (33.0-37.0); MEAN PLATELET VOLUME 11.1 fl (9.6-12.3); MONO # 0.4 10*3/uL (0.1-1.0); NEUT # 5.5 10*3/uL (2.3-7.9); NEUT % 85.1 % (47.0-73.0); PLATELET COUNT AUTOMATED 162 10*3/uL (130-400); RED BLOOD COUNT 4.03 10*6/uL (4.50-5.90); WHITE BLOOD COUNT 6.5 10*3/uL (4.8-10.8)
--- NOTE | 2020-10-06 06:16 | NUR ---
PT IS RESTING IN BED. WILL CONTINUE TO MONITOR. VSS.
[2020-10-06 06:29] LABS: ALBUMIN 2.8 gm/dl (3.1-4.5); POTASSIUM 4.2 mmol/L (3.5-5.1)
[2020-10-06 06:33] LABS: CREATININE 1.58 mg/dL (0.70-1.30); TOTAL PROTEIN 6.3 gm/dL (6.4-8.2)
[2020-10-06 08:35] LABS: INTERNATIONAL NORM RATIO 2.7 (2.0-3.5)
--- NOTE | 2020-10-06 09:04 | NUR ---
PT IS C/O PAIN TO THE RIB AREA BILATERAL. PER MAR A NORCO WAS GIVEN TO HIM.
--- NOTE | 2020-10-06 13:14 | NUR ---
A NON-STICK DRESSING WAS APPLIED TO THE SKIN TEAR
--- NOTE | 2020-10-06 19:30 | NUR ---
ASSUMED CARE OF PATIENT. PATIENT IS AAOX3 RESTING IN BED WITH EASY AND REGULAR RESPERS ON 1L NC. ASSESSMENT IS COMPLETE WITH NO C/O OR S/S OF DISTRESS NOTED AT THIS TIME. PATIENT TAKEN OFF NASAL CANNULA, VITALS WITHIN NORMAL LIMITS ON ROOM AIR. BED IS LOW, LOCKED, ALARMED, AND CALL LIGHT IS WITHIN REACH. WILL CONTINUE TO MONITOR, SEE INTERVENTIONS.
[2020-10-07] VITALS: BP 136/68
--- NOTE | 2020-10-07 03:30 | NUR ---
CHART CHECK COMPLETE.
--- NOTE | 2020-10-07 03:59 | NUR ---
CHART CHECK COMPLETE.
--- NOTE | 2020-10-07 04:04 | NUR ---
PATIENT MOVED FROM 406-2 TO 419 FOR CLOSE MONITORING. PATIENT ATTEMPTED TO GET OUT OF BED MULTIPLE TIMES. BED IS LOW, LOCKED, ALARMED, AND CALL LIGHT IS WITHIN REACH. WILL CONTINUE TO MONITOR.
[2020-10-07 06:32] LABS: BASO % 0.1 % (0.0-1.0); HEMATOCRIT 37.4 % (42.0-52.0); LYMPH # 0.6 10*3/uL (1.3-4.4); LYMPH % 7.5 % (27.0-41.0); MEAN CELL VOLUME 87.2 fl (80.0-94.0); MEAN CORPUSCULAR HGB 26.6 pg (27.0-31.0); MEAN CORPUSCULAR HGB CONC 30.5 g/dl (33.0-37.0); MEAN PLATELET VOLUME 10.8 fl (9.6-12.3); MONO # 0.4 10*3/uL (0.1-1.0); MONO % 5.2 % (3.0-9.0); NEUT # 6.7 10*3/uL (2.3-7.9); NEUT % 86.4 % (47.0-73.0); PLATELET COUNT AUTOMATED 205 10*3/uL (130-400); RED BLOOD COUNT 4.29 10*6/uL (4.50-5.90); RED CELL DISTRI WIDTH 15.2 % (0-14.5); WHITE BLOOD COUNT 7.7 10*3/uL (4.8-10.8)
[2020-10-07 06:37] LABS: INTERNATIONAL NORM RATIO 3.3 (2.0-3.5)
[2020-10-07 06:57] LABS: CREATININE 1.52 mg/dL (0.70-1.30); TOTAL PROTEIN 6.7 gm/dL (6.4-8.2)
[2020-10-07 08:00] VITALS: BP 151/92
--- NOTE | 2020-10-07 11:50 | NUR ---
PHYSICAL THERAPY Physical Therapy evaluation completed on 4E with full evaluation to follow. Moderate complexity PT evaluation per chart review and evaluation, [id number]. Recommend physical therapy per plan of care and SNF upon discharge. Thank you for this referral. Augusta Hewitt,PT,DPT
--- NOTE | 2020-10-07 11:51 | NUR ---
Occupational Therapy evaluation completed on four with full evaluation to follow. Recommend occupational therapy per plan of care and SNF upon discharge. Thank you for this referral. Lyubov Amaro OTR/L
[2020-10-07 12:00] VITALS: BP 138/74
--- NOTE | 2020-10-07 13:16 | NUR ---
Sample Grinder in to talk to patient. Patient states lives at home with alone. There are no steps in the home. Physician: bogdan [facility]acy: [facility] Home health services: none at present Patient's level of ADLs: MINIMAL ASSIST Patient has working utilities: all working DME: home oxygen 2-3l, portable tanks, nebulizer Follow-up physician's appointment after d/c: will be made by hospitalist nurse director upon discharge Does patient want to access PORTAL?: no Discharge plan discussed with patient's sister Jarvis. she stated patient lives at home alone, she lives next door. she stated patient has a rollator walker, wheelchair, home oxygen with portable tanks, nebulizer, doesn't remember the name of the oxygen company. patient doesn't currently have any home health attendant services, he has moms meals with 14 delivered meals a week. discussed with her patient going [place] term [place] for 5 days of rehab and 24 hour care prior to returning home.. Jarvis stated she didn't want patient going to a [place] term [place] and patient would never agree to going also discussed with her VNA and educated her on the services they provide. she was agreeable to this, given choice of companies she chose [facility]. will send a referral to [facility] for when patient is discharged. case management will follow. EMILIANO ANDRADE
[2020-10-07 16:00] VITALS: BP 114/65
--- NOTE | 2020-10-07 16:30 | NUR ---
IN ROOM TO SEE PATIENT AT THIS TIME. PATIENT PLEASANTLY CONFUSED. COOPERATIVE @ THIS TIME. AUDIBLE WHEEZES NOTED ON ASSESSMENT. ROOM AIR. NO DISTRESS NOTED. CHRONIC LYMPHEDEMA NOTED TO BLE. CALL LIGHT IN REACH.
--- NOTE | 2020-10-07 17:46 | NUR ---
PHYSICAL THERAPY Nursing screen received and chart reviewed. PT evaluation complete and patient on PT caseload. Will continue to follow patient. Thank you. Augusta Hewitt,PT,DPT
[2020-10-07 20:00] VITALS: BP 126/64
--- NOTE | 2020-10-07 22:11 | NUR ---
DR. ABDUL NOTIFIED OF PT BEING RUDE, VIOLENT, NOT STAYING IN BED. ONE TIME 0.5MG DOSE OF ATIVAN ORDERED.
--- NOTE | 2020-10-07 22:21 | NUR ---
IV ATIVAN GIVEN PER ORDER FOR VIOLENT/RESTLESS BEHAVIOR. WILL MONITOR
--- NOTE | 2020-10-07 23:00 | NUR ---
PA IN WITH PT AT THIS TIME. PA CALLS OUT FOR NURSE. UPON ENTRY, NURSE SEES PT SWINGING AT AIDE. ANOTHER AIDE IN ROOM AT THIS TIME. ATTEMPTED TO GET PATIENT SEATED IN CHAIR AT THIS TIME. PT YELLS AND SCREAMS AND HITS NURSE, AND BOTH PA'S. PT TRYING TO CLIMB OUT OF BED, FALL RISK. DR. ABDUL CALLED FROM ROOM AT THIS TIME. STATED THAT SHE WOULD BE UP.
--- NOTE | 2020-10-07 23:15 | NUR ---
NÉSTOR RN CALLS INTO ROOM AT THIS TIME AND HANDED PHONE TO DR. LEVIN. DR LEVIN STATES 'WE CANT FORCE PT INTO FRANK CHAIR, TO LEAVE HIM SIT THERE" NOTIFIED HIM THAT WE CANNOT LEAVE PT IN CHAIR, HE IS FALL RISK AND IS TRYING TO GET UP. STATED THAT WE COULD TRY SEROQUEL PO. THIS NURSE STATED THAT RN AND AIDES NEED HELP MOVING PT AT THIS TIME." DR. LEVIN STATES "WE WILL FIGURE SOMETHING OUT" NO ONE ENTERS ROOM AT THIS TIME. THIS RN CALLED SECURITY FROM ROOM TO COME HELP.
--- NOTE | 2020-10-07 23:20 | NUR ---
IV ATIVAN INEFFECTIVE. DR. LEVIN NOTIFIED. NO NEW ORDERS
--- NOTE | 2020-10-07 23:25 | NUR ---
SECURITY TO FLOOR TO HELP MOVE PT. PT SITTING IN CHAIR, BED ALARM INTACT. PT FIGETING, PULLING HEART MONITOR OFF, STILL SWINGING AT STAFF. NO MEDICATIONS ORDERED AT THIS TIME.
[2020-10-08] VITALS (20 sets, daily range): BP systolic 58–139; BP diastolic 39–83
--- NOTE | 2020-10-08 | NUR ---
PT IN CHAIR. PT PULLED GOWN AND HEART MONITOR OFF. WILL NOT LEAVE MONITOR ON. WILL LET PHYSICIAN KNOW.
--- NOTE | 2020-10-08 01:00 | NUR ---
PT TOOK HEART MONITOR OFF AGAIN. PT REFUSING TO LEAVE IT ON. DR. ABDUL NOTIFIED.
--- NOTE | 2020-10-08 01:30 | NUR ---
PT FIDGETING IN CHAIR AT THIS TIME. NO NEW ORDERS STILL.
--- NOTE | 2020-10-08 02:23 | NUR ---
SEROQUEL GIVEN PER ORDER FROM DR. ABDUL. WILL MONITOR
--- NOTE | 2020-10-08 02:24 | NUR ---
DR. ABDUL NOTIFIED THAT PT IS VERY AGITATED, RIPPED IV OUT, AND WONT LET THIS RN PUT ANOTHER IV SITE IN. STATED THAT SHE WOULD PUT SOMETHING IN
--- NOTE | 2020-10-08 03:15 | NUR ---
SEROQUEL INEFFECTIVE, PT POUNDING TABLE AND RIPPING OFF GOWN AT THIS TIME.
--- NOTE | 2020-10-08 04:08 | NUR ---
IM HALDOL GIVEN AT THIS TIME PER ORDER FOR AGITATION/AGGRESSIVE BEHAVIOR. WILL MONITOR
--- NOTE | 2020-10-08 05:00 | NUR ---
INTO PASS MORNING MEDICATIONS. HALDOL INEFFECTIVE. PT STILL THRASHING AROUND CHAIR TRYING TO GET UP. PT REFUSING MORNING MEDICATIONS AT THIS TIME. ALSO REFUSING BLOOD SUGAR CHECK.
--- NOTE | 2020-10-08 05:15 | NUR ---
24 HR chart check completed.
--- NOTE | 2020-10-08 06:00 | NUR ---
PT MOVING AROUND IN CHAIR. STILL BANGING TABLE.
--- NOTE | 2020-10-08 07:46 | NUR ---
OT NOTE Nursing screen received. Patient was evaluated on 10/07/2020 for OT caseload. Will continue with POC as able. Thank you. Lyubov Amaro, OTR/L
--- NOTE | 2020-10-08 08:50 | NUR ---
IN ROOM TO DO ASSESSMENT, PATIENT FOUND TO BE HYPOXIC AND BREATHING @ 32 RESPS/MIN. POX 68% ROOM AIR. PLACED ON 10L O2 NC AND EVENTUALLY DECREASED TO 4L ONCE STABLE. POX 95-96% ON 4L. ALL OTHER VITALS STABLE. NOTIFIED EFFIE PAYAN. ATTEMPTED TO MEDICATED WITH ORAL PILLS AND PATIENT IS NOT ALERT ENOUGH TO MEDICATE. NOTIFIED EFFIE.
--- NOTE | 2020-10-08 09:30 | NUR ---
PER EFFIE PAYAN, SHE SPOKE WITH KUN SANDOVAL.
--- NOTE | 2020-10-08 10:30 | NUR ---
CALLED PATIENT'S SISTER TO INFORM HER OF CHANGE IN PATIENT'S CONDITION. PER SISTER, SHE WANTS PATIENT TO REMAIN FULL CODE. NOTIFIED & ORDER OBTAINED FOR PATIENT TO BE TRANSFERRED TO ICU.
--- NOTE | 2020-10-08 10:30 | NUR ---
OT NOTE Attempted to see pt this A.M. for OT session and upon arrival pt's nurse reported that pt is on hold due to being aggitated and not appropriate for therapy at this time. No treatment provided. Will check back at a later time/date and continue with POC as able. MADHU Danielle/Taye
[2020-10-08 11:42] LABS: ABG BASE EXCESS 4.4 mmol/L (-2.0-2.0); ARTERIAL BLOOD GAS PH 7.373 (7.35-7.45)
--- NOTE | 2020-10-08 12:34 | NUR ---
PHYSICAL THERAPY [facility]. Patient will need new evaluation. Patient was not doing well at 11:00 am when approached for therapy. TAHIR POP INFORMED THIS BUSINESS TRANSFORMATION ANALYST AND MADHU JIM that the patient wasn't to do therapy today due to a deteriorated condition. GIANFRANCO FALK BUSINESS TRANSFORMATION ANALYST
--- NOTE | 2020-10-08 12:40 | NUR ---
PT TRANSFERRED BACK FROM [facility] ORDERED. RESTLESS AND AGITATED. UNABLE TO FOLLOW COMMANDS. RESP 28-34 BPM ALONG WITH MOIST COUGH NOTED. PULSE OX 96% ON 4L/NC. REMAINS IN AF 70-85 BPM. ABD SOFT AND NONDISTENDED WITH +BS X 4 NOTED. INCOHERENT SPEECH. SIDERAILS UP. #18 DORSEY CATHETER INSERTED WITHOUT DIFFCULTY PATENT FOR DK JOAQUÍN URINE. NO CHILDRESS RN
--- NOTE | 2020-10-08 12:40 | NUR ---
TRANSFERRED PATIENT TO ICCU AND REPORT GIVEN TO TAHIR SARABIA.
--- NOTE | 2020-10-08 13:15 | NUR ---
case management received a call from Lev, from [employer], he stated patient is on [employer] services but at this time he does not have an aid that comes into help him, he does have home oxygen, portable tanks from [facility], rollator walker, nebulizer, shower bench, hospital bed and nebulizer, Lev would like called ([phone]) when patient is ready for discharge
[2020-10-08 13:39] LABS: HEMATOCRIT 37.6 % (42.0-52.0); MEAN CELL VOLUME 88.7 fl (80.0-94.0); MEAN CORPUSCULAR HGB 26.4 pg (27.0-31.0); MEAN CORPUSCULAR HGB CONC 29.8 g/dl (33.0-37.0); MEAN PLATELET VOLUME 10.4 fl (9.6-12.3); PLATELET COUNT AUTOMATED 182 10*3/uL (130-400); RED BLOOD COUNT 4.24 10*6/uL (4.50-5.90); RED CELL DISTRI WIDTH 15.2 % (0-14.5); WHITE BLOOD COUNT 8.5 10*3/uL (4.8-10.8)
[2020-10-08 13:49] LABS: INTERNATIONAL NORM RATIO 3.7 (2.0-3.5)
[2020-10-08 13:54] LABS: ALBUMIN 2.8 gm/dl (3.1-4.5); CREATININE 1.54 mg/dL (0.70-1.30); POTASSIUM 3.9 mmol/L (3.5-5.1); TOTAL PROTEIN 6.3 gm/dL (6.4-8.2)
[2020-10-08 13:55] LABS: TOTAL CELLS COUNTED 100 #CELLS
[2020-10-08 13:56] LABS: BURR CELLS FEW; PLATELET SUFFICIENCY NORMAL (NORMAL)
--- NOTE | 2020-10-08 16:20 | NUR ---
PT RESP 30-38 BPM. MOIST COUGH, PLACED ON 6L NC O2. VERY COMBATIVE AND RESTLESS. AT FIB 120-[address] COLLINS NOTIFIED OF PATIENTS CURRENT CONDITION. ORDERS REC'D. ANESTHESIA CALLED FOR INTUBATION. DAE OVALLEORD SISTER AND POA CALLED FOR CONSENT OF INTUBATION AND LINE PLACEMENT. NO CHILDRESS RN
--- NOTE | 2020-10-08 19:00 | NUR ---
LEVOPRED STARTED AT 4MCQ/30CC FOR BP 72/56. NO CHILDRESSRN
--- NOTE | 2020-10-08 21:31 | NUR ---
DR COLLINS NOTIFIED OF CXR RESULTS. ORDER TO ADVANCE ENDOTUBE 5CM AND THEN REPEAT CXR AND IF STILL GREATER THAN 5CM ABOVE JOSE ADVANCE ANOTHER 2CM, MAY ALSO USE LEFT IJ MLC. OBTAIN RESP CULTURES.
[2020-10-09] VITALS (96 sets, daily range): BP systolic 90–139; BP diastolic 55–79
[2020-10-09 05:15] LABS: ALBUMIN 2.6 gm/dl (3.1-4.5); CREATININE 1.89 mg/dL (0.70-1.30); POTASSIUM 3.8 mmol/L (3.5-5.1); TOTAL PROTEIN 5.8 gm/dL (6.4-8.2)
[2020-10-09 06:02] LABS: EOS % 0.1 % (1.0-4.0); HEMATOCRIT 35.1 % (42.0-52.0); LYMPH # 0.8 10*3/uL (1.3-4.4); LYMPH % 6.6 % (27.0-41.0); MEAN CELL VOLUME 87.5 fl (80.0-94.0); MEAN CORPUSCULAR HGB 27.4 pg (27.0-31.0); MEAN CORPUSCULAR HGB CONC 31.3 g/dl (33.0-37.0); MEAN PLATELET VOLUME 11.5 fl (9.6-12.3); MONO # 0.4 10*3/uL (0.1-1.0); MONO % 3.2 % (3.0-9.0); NEUT # 10.4 10*3/uL (2.3-7.9); NEUT % 89.2 % (47.0-73.0); PLATELET COUNT AUTOMATED 217 10*3/uL (130-400); RED BLOOD COUNT 4.01 10*6/uL (4.50-5.90); RED CELL DISTRI WIDTH 15.4 % (0-14.5); WHITE BLOOD COUNT 11.7 10*3/uL (4.8-10.8)
[2020-10-09 06:28] LABS: INTERNATIONAL NORM RATIO 3.9 (2.0-3.5)
--- NOTE | 2020-10-09 07:56 | NUR ---
OT NOTE Patient was evaluated for occupational therapy on 10/07/2020. Patient was transferred to the ICCU on 10/08/2020 and was intubated. Patient is not appropriate for occupational therapy at this time. Will need new orders when patient is extubated and medically appropriate for OT. Thank you. Lyubov Amaro, OTR/L
--- NOTE | 2020-10-09 08:00 | NUR ---
ENDOTUBE SECURE AT 29 CM AT LIP. NGT LEFT NARES REPOSTIONED WITH CHEST XRAY TO CONFIRM PLACEMENT. ARTERIAL LINE RIGHT WRIST INPLACE AND CALIBRATED WITH GOOD WAVE FORM. DORSEY PATENT FOR DK JOAQUÍN URINE. DIPROVAN OFF FOR SEDATION VACATION. ATTEMPTS TO PULL AT ENDOTUBE. LEVOPRED GTT TITRATED. NO CHILDRESS RN
[2020-10-09 08:02] LABS: ARTERIAL BLOOD GAS PH 7.415 (7.35-7.45)
--- NOTE | 2020-10-09 11:00 | NUR ---
REPOSTIONED FOR COMFORT. REMAINS ON DIPROVAN AND LEVOPRED GTTS. NO DISTRESS NOTED. NO CHILDRESS RN
--- NOTE | 2020-10-09 11:25 | NUR ---
discharge plan undecided at this time. case management will follow and talk with family.
[2020-10-09 15:35] LABS: ABG BASE EXCESS 1.8 mmol/L (-2.0-2.0); ARTERIAL BLOOD GAS PH 7.419 (7.35-7.45)
--- NOTE | 2020-10-09 18:19 | NUR ---
REPOSTIONED FOR COMFORT. ORAL CARE DONE. NGT PLACEMENT CHECKED WITH AIR BOLUS. NO DISTRESS. LEVOPRED TITRATED TO 5 CHERRY AND DIPROVAN REMAINS ON 30MIC. NO CHILDRESS RN
--- NOTE | 2020-10-09 20:00 | NUR ---
PT RESTING IN BED WITH EYES CLOSE, ENDOTUBE PATENT, TIES SECURE, VENT SETTINGS VERIFIED AND FUNCTIONING WITHOUT DIFFICULTY. NGT PATENT, PLACEMENT VERIFIED VIA AIR BOLUS AND TF NIRALI WELL. LEFT IJ MLC AND RIGHT ARTLINE PATENT, DRESSINGS DRY AND INTACT. DORSEY PATENT FOR DARK JOAQUÍN URINE. NO S/S OF HYPO/HYPERGLYCEMIA NOTED. ISOLATION PRECAUTIONS MAINTAINED.
[2020-10-10] VITALS (94 sets, daily range): BP systolic 96–140; BP diastolic 51–578
[2020-10-10 06:09] LABS: HEMATOCRIT 36.6 % (42.0-52.0); MEAN CELL VOLUME 86.9 fl (80.0-94.0); MEAN CORPUSCULAR HGB 27.1 pg (27.0-31.0); MEAN CORPUSCULAR HGB CONC 31.1 g/dl (33.0-37.0); MEAN PLATELET VOLUME 11.7 fl (9.6-12.3); PLATELET COUNT AUTOMATED 271 10*3/uL (130-400); RED BLOOD COUNT 4.21 10*6/uL (4.50-5.90); RED CELL DISTRI WIDTH 15.4 % (0-14.5)
[2020-10-10 06:16] LABS: ALBUMIN 2.3 gm/dl (3.1-4.5); CREATININE 2.34 mg/dL (0.70-1.30); POTASSIUM 4.2 mmol/L (3.5-5.1)
[2020-10-10 06:25] LABS: TOTAL PROTEIN 5.9 gm/dL (6.4-8.2)
[2020-10-10 06:45] LABS: TOTAL CELLS COUNTED 100 #CELLS
[2020-10-10 06:46] LABS: BURR CELLS FEW; PLATELET SUFFICIENCY NORMAL (NORMAL)
--- NOTE | 2020-10-10 07:27 | NUR ---
Shift chart check completed.
[2020-10-10 07:31] LABS: INTERNATIONAL NORM RATIO 4.5 (2.0-3.5)
--- NOTE | 2020-10-10 09:25 | NUR ---
HAD TO CHANGE ET TUBE BECAUSE CUFF BLOWNN. GREY INTUBATED SUCCESSFULLY. PT TOLERATED WELL. SPO2 95%
[2020-10-10 09:26] LABS: ABG BASE EXCESS 1.8 mmol/L (-2.0-2.0); ARTERIAL BLOOD GAS PH 7.392 (7.35-7.45)
[2020-10-10 12:09] LABS: ABG BASE EXCESS 2.1 mmol/L (-2.0-2.0); ARTERIAL BLOOD GAS PH 7.442 (7.35-7.45)
[2020-10-11] VITALS (96 sets, daily range): BP systolic 82–152; BP diastolic 45–93
--- NOTE | 2020-10-11 04:29 | NUR ---
LEVOPHED HAS BEEN TITRATED OFF. MAP REMAINS >70.
--- NOTE | 2020-10-11 04:30 | NUR ---
Q2H TURNS CONTINUE. SEDATION REMAINS ADEQUATE. LEVOPHED REMAINS AT 6MCG/MIN.
[2020-10-11 05:58] LABS: ALBUMIN 2.1 gm/dl (3.1-4.5); CREATININE 2.12 mg/dL (0.70-1.30); POTASSIUM 4.5 mmol/L (3.5-5.1); TOTAL PROTEIN 5.4 gm/dL (6.4-8.2)
[2020-10-11 06:15] LABS: BASO % 0.1 % (0.0-1.0); HEMATOCRIT 35.1 % (42.0-52.0); LYMPH # 0.6 10*3/uL (1.3-4.4); LYMPH % 5.8 % (27.0-41.0); MEAN CELL VOLUME 84.6 fl (80.0-94.0); MEAN CORPUSCULAR HGB 27.2 pg (27.0-31.0); MEAN CORPUSCULAR HGB CONC 32.2 g/dl (33.0-37.0); MEAN PLATELET VOLUME 11.7 fl (9.6-12.3); MONO # 0.4 10*3/uL (0.1-1.0); MONO % 4.3 % (3.0-9.0); NEUT # 9.1 10*3/uL (2.3-7.9); PLATELET COUNT AUTOMATED 321 10*3/uL (130-400); RED BLOOD COUNT 4.15 10*6/uL (4.50-5.90); RED CELL DISTRI WIDTH 15.3 % (0-14.5); WHITE BLOOD COUNT 10.2 10*3/uL (4.8-10.8)
[2020-10-11 06:39] LABS: INTERNATIONAL NORM RATIO 4.7 (2.0-3.5)
[2020-10-11 07:54] LABS: ABG BASE EXCESS 2.7 mmol/L (-2.0-2.0); ARTERIAL BLOOD GAS PH 7.472 (7.35-7.45)
--- NOTE | 2020-10-11 22:30 | NUR ---
24 HR chart check completed.
[2020-10-12] VITALS (96 sets, daily range): BP systolic 86–159; BP diastolic 50–96
--- NOTE | 2020-10-12 | NUR ---
Patient tolerated vent throughout the night, no signs of distress. Monitoring.
[2020-10-12 05:35] LABS: CREATININE 1.85 mg/dL (0.70-1.30); POTASSIUM 4.8 mmol/L (3.5-5.1); TOTAL PROTEIN 5.3 gm/dL (6.4-8.2)
[2020-10-12 06:07] LABS: HEMATOCRIT 35.9 % (42.0-52.0); LYMPH # 0.5 10*3/uL (1.3-4.4); LYMPH % 5.9 % (27.0-41.0); MEAN CELL VOLUME 83.9 fl (80.0-94.0); MEAN CORPUSCULAR HGB 26.9 pg (27.0-31.0); MEAN PLATELET VOLUME 11.9 fl (9.6-12.3); MONO # 0.5 10*3/uL (0.1-1.0); MONO % 5.9 % (3.0-9.0); NEUT # 6.6 10*3/uL (2.3-7.9); NEUT % 86.8 % (47.0-73.0); PLATELET COUNT AUTOMATED 318 10*3/uL (130-400); RED BLOOD COUNT 4.28 10*6/uL (4.50-5.90); RED CELL DISTRI WIDTH 15.4 % (0-14.5); WHITE BLOOD COUNT 7.6 10*3/uL (4.8-10.8)
[2020-10-12 07:15] LABS: INTERNATIONAL NORM RATIO 3.6 (2.0-3.5)
[2020-10-12 07:28] LABS: ABG BASE EXCESS -0.2 mmol/L (-2.0-2.0); ARTERIAL BLOOD GAS PH 7.381 (7.35-7.45)
--- NOTE | 2020-10-12 18:52 | NUR ---
DONTRELL GARCIA FROM ID ROUNDED
--- NOTE | 2020-10-12 19:19 | NUR ---
CHART CHECK COMPLETE.
--- NOTE | 2020-10-12 19:50 | NUR ---
VERSED GIVEN FOR SEDATION EFFECTIVE WITHIN 2 MINUTES OF ADMINISTRATION.
--- NOTE | 2020-10-12 22:52 | NUR ---
VERSED EFFECTIVE FOR SEDATION.
[2020-10-13] VITALS (42 sets, daily range): BP systolic 86–143; BP diastolic 54–77
--- NOTE | 2020-10-13 02:18 | NUR ---
VERSED AT 0200 FOR AGITATION EFFECTIVE.
--- NOTE | 2020-10-13 04:22 | NUR ---
VERSED EFFECTIVE FOR RESTLESSNESS.
[2020-10-13 06:07] LABS: BASO % 0.3 % (0.0-1.0); LYMPH # 0.5 10*3/uL (1.3-4.4); LYMPH % 6.5 % (27.0-41.0); MEAN CELL VOLUME 86.4 fl (80.0-94.0); MEAN CORPUSCULAR HGB 27.3 pg (27.0-31.0); MEAN CORPUSCULAR HGB CONC 31.6 g/dl (33.0-37.0); MEAN PLATELET VOLUME 11.5 fl (9.6-12.3); MONO # 0.6 10*3/uL (0.1-1.0); MONO % 8.2 % (3.0-9.0); NEUT # 5.8 10*3/uL (2.3-7.9); NEUT % 83.3 % (47.0-73.0); NUCLEATED RED BLOOD CELL 0.3 % (0.0-0.0); PLATELET COUNT AUTOMATED 290 10*3/uL (130-400); RED BLOOD COUNT 4.28 10*6/uL (4.50-5.90); RED CELL DISTRI WIDTH 15.8 % (0-14.5)
[2020-10-13 06:11] LABS: CREATININE 1.89 mg/dL (0.70-1.30); TOTAL PROTEIN 5.2 gm/dL (6.4-8.2)
--- NOTE | 2020-10-13 06:15 | NUR ---
VERSED EFFECTIVE FOR RESTLESSNESS.
[2020-10-13 06:17] LABS: POTASSIUM 4.7 mmol/L (3.5-5.1)
[2020-10-13 06:42] LABS: INTERNATIONAL NORM RATIO 2.6 (2.0-3.5)
[2020-10-13 07:18] LABS: ABG BASE EXCESS -0.4 mmol/L (-2.0-2.0); ARTERIAL BLOOD GAS PH 7.389 (7.35-7.45)
--- NOTE | 2020-10-13 08:00 | NUR ---
SEDATED ON VENT. GRIMACES WHEN SUCTIONED. GURGLING HEARD AROUND ENDOTUBE. CUFF CHECKED AND PLACED 10CC AIR. SUCTIONED FOR THICK BLOODY/YELLOW SECRETIONS. LUNGS CLEAR BILATERALLY. SCROTAL EDEMA NOTED. ART LINE INTACT TO RIGHT ARM AND LIJ MLC INTACT. DORSEY DRAINING CLEAR YELLOW URINE
--- NOTE | 2020-10-13 08:50 | NUR ---
LEVO GTT TURNED OFF
[2020-10-13 14:54] LABS: ABG BASE EXCESS -2.1 mmol/L (-2.0-2.0); ARTERIAL BLOOD GAS PH 7.316 (7.35-7.45)
--- NOTE | 2020-10-13 20:38 | NUR ---
PT. RESTLESS UNTIL VERSED WAS GIVEN AT 1951, IMMEDIATELY EFFECTIVE. LIJ MLC INTACT, ALL PORTS PATENT. RIGHT RADIAL ART LEVELED, ZEROED AND FLUSHED. LUNGS DIMINISHED BILAT, PULSE OX 96% ON 35% FIO2. ABDOMEN SOFTLY DISTENDED, MORBIDLY OBESE. DORSEY CATH DRAINING A DARK JOAQUÍN URINE. PT. HAS 3-4+DEPENDENT EDEMA AND GENERALIZED ANASARCA. PULMOCARE TF CONTINUES ORDERED, PLACEMENT CONFIRMED WITH AIR BOLUS AND NO RESIDUAL WAS NOTED. SOFT WRIST RESTRAINTS BILAT TO PREVENT ACCIDENTAL SELF EXTUBATION. SAMUEL BOURNE RN
[2020-10-14] VITALS (7 sets, daily range): BP systolic 108–141; BP diastolic 53–67
[2020-10-14 06:06] LABS: ALBUMIN 2.2 gm/dl (3.1-4.5); CREATININE 2.05 mg/dL (0.70-1.30); TOTAL PROTEIN 5.4 gm/dL (6.4-8.2)
[2020-10-14 06:11] LABS: BASO % 0.2 % (0.0-1.0); HEMATOCRIT 39.9 % (42.0-52.0); LYMPH # 0.6 10*3/uL (1.3-4.4); LYMPH % 4.7 % (27.0-41.0); MEAN CELL VOLUME 85.8 fl (80.0-94.0); MEAN CORPUSCULAR HGB 26.7 pg (27.0-31.0); MEAN CORPUSCULAR HGB CONC 31.1 g/dl (33.0-37.0); MEAN PLATELET VOLUME 11.9 fl (9.6-12.3); MONO # 0.6 10*3/uL (0.1-1.0); MONO % 5.5 % (3.0-9.0); NEUT # 10.2 10*3/uL (2.3-7.9); NEUT % 87.7 % (47.0-73.0); NUCLEATED RED BLOOD CELL 0.2 % (0.0-0.0); PLATELET COUNT AUTOMATED 328 10*3/uL (130-400); RED BLOOD COUNT 4.65 10*6/uL (4.50-5.90); RED CELL DISTRI WIDTH 16.1 % (0-14.5); WHITE BLOOD COUNT 11.6 10*3/uL (4.8-10.8)
[2020-10-14 06:53] LABS: INTERNATIONAL NORM RATIO 1.9 (2.0-3.5)
[2020-10-14 07:45] LABS: ARTERIAL BLOOD GAS PH 7.318 (7.35-7.45)
--- NOTE | 2020-10-14 08:40 | NUR ---
PHYSICAL THERAPY Per change in status, patient intubated in ICCU. Patient not appropriate for skilled PT services at this time. Recommend new PT evaluation when patient is appropriate to participate. Thank you. Augusta Hewitt,PT,DPT
--- NOTE | 2020-10-14 11:45 | NUR ---
DR COLLINS & DR STEWART HERE - PATIENT SEEN, CASE DISCUSSED & ORDERS RECEIVED
[2020-10-14 13:36] LABS: ABG BASE EXCESS -1.2 mmol/L (-2.0-2.0); ARTERIAL BLOOD GAS PH 7.326 (7.35-7.45)
--- NOTE | 2020-10-14 15:48 | NUR ---
DR LUCERO CALLED AND CASE REVIEWED - ORDERS RECEIVED
[2020-10-14 16:48] LABS: ABG BASE EXCESS -0.9 mmol/L (-2.0-2.0); ARTERIAL BLOOD GAS PH 7.351 (7.35-7.45)
--- NOTE | 2020-10-14 18:49 | NUR ---
URINES SENT PER REQUEST OF DR LUCERO.. TUBE FEEDING CHANGED TO NEPRO PER ORDERS.
[2020-10-14 18:53] LABS: BILIRUBIN Negative (Negative); BLOOD Negative (Negative); CLARITY Clear (Clear); COLOR Yellow (Yellow); GLUCOSE Negative (Negative); KETONE Negative (Negative); LEUKO ESTERASE Negative (Negative); NITRITE Negative (Negative); SPECIFIC GRAVITY 1.015 (1.001-1.030); UROBILINOGEN 0.2 E.U./dl (0.0-1.0)
[2020-10-14 19:02] LABS: URINE CHLORIDE, RANDOM < 10 mmol/L
[2020-10-14 19:09] LABS: RBC 21-30 rbc/hpf (0-2)
[2020-10-14 19:11] LABS: BACTERIA 1+; HYALINE CAST 31-40
--- NOTE | 2020-10-14 20:24 | NUR ---
PT. REMAINS ON CPAP. ART LINE LEVELED, ZEROED AND FLUSHED PER POLICY. LIJ MLC INTACT, ALL PORTS PATENT. LUNGS DIMINISHED BILAT, PULSE OX 99% ON 35% O2 ABDOMEN SOFTLY DISTENDED AND NORMO. GENERALIZED DEPENDENT EDEMA/ANASARCA NOTED, 3-4+PITTING. DORSEY CATH DRAINING A DARK JOAQUÍN URINE. NEPRO TF INFUSING VIA LEFT NARE OG. NO RESIDUAL WAS NOTED, PLACEMENT CONFIRMED WITH AIR BOLUS. ARMS SEEPING. PT. DOES NOT FOLLOW COMMANDS BUT IS MOVING ARMS AND LEGS RANDOMLY. SAMUEL BOURNE, RN
[2020-10-14 20:30] LABS: ABG BASE EXCESS -1.1 mmol/L (-2.0-2.0); ARTERIAL BLOOD GAS PH 7.33 (7.35-7.45)
[2020-10-15] VITALS: BP 109/51
[2020-10-15 04:00] VITALS: BP 108/97
[2020-10-15 05:56] LABS: ALBUMIN 2.3 gm/dl (3.1-4.5); CREATININE 2.05 mg/dL (0.70-1.30); POTASSIUM 4.6 mmol/L (3.5-5.1); TOTAL PROTEIN 5.1 gm/dL (6.4-8.2)
[2020-10-15 06:08] LABS: BASO % 0.3 % (0.0-1.0); EOS % 0.2 % (1.0-4.0); HEMATOCRIT 35.7 % (42.0-52.0); LYMPH # 0.5 10*3/uL (1.3-4.4); LYMPH % 3.7 % (27.0-41.0); MEAN CELL VOLUME 85.8 fl (80.0-94.0); MEAN CORPUSCULAR HGB 26.7 pg (27.0-31.0); MEAN CORPUSCULAR HGB CONC 31.1 g/dl (33.0-37.0); MEAN PLATELET VOLUME 11.3 fl (9.6-12.3); MONO # 0.6 10*3/uL (0.1-1.0); MONO % 4.7 % (3.0-9.0); NEUT # 10.7 10*3/uL (2.3-7.9); NEUT % 88.8 % (47.0-73.0); PLATELET COUNT AUTOMATED 264 10*3/uL (130-400); RED BLOOD COUNT 4.16 10*6/uL (4.50-5.90); RED CELL DISTRI WIDTH 16.3 % (0-14.5)
[2020-10-15 06:23] LABS: INTERNATIONAL NORM RATIO 1.8 (2.0-3.5)
[2020-10-15 08:00] VITALS: BP 124/81
[2020-10-15 08:13] LABS: ABG BASE EXCESS 0.8 mmol/L (-2.0-2.0); ARTERIAL BLOOD GAS PH 7.348 (7.35-7.45)
[2020-10-15 11:11] LABS: ACID FAST SPEC PROCESSING Concentration (.)
--- NOTE | 2020-10-15 11:25 | NUR ---
DR COLLINS NOTIFIED OF PT LACK OF GAG REFLEX WITH MYRNAKAR AND ETT....PT JUST SHAKES HEAD SIDE TO SIDE.
--- NOTE | 2020-10-15 11:59 | NUR ---
yovana continues on ventilator. case management will send patient's information to [facility] and [facility] for possibly discharge plans. case management will follow
[2020-10-15 12:00] VITALS: BP 145/77
[2020-10-15 16:00] VITALS: BP 125/65
--- NOTE | 2020-10-15 16:23 | NUR ---
DR LUCERO CALLS TO CHECK ON PT CONDITION. ORDERS RECEIVED.
--- NOTE | 2020-10-15 16:27 | NUR ---
SPOKE WITH SISTER, DAE, ON TELEPHONE. CONDITION UPDATED AND PT TO BE REINTUBATED IF NEEDED WHEN EXTUBATED.
--- NOTE | 2020-10-15 16:59 | NUR ---
NOTIFIED DR COLLINS OF SISTER'S WISHES FOR CONTINUING PT CARE RE: REINTUBATION/TRACH NEEDED.
[2020-10-15 20:00] VITALS: BP 117/66
--- NOTE | 2020-10-15 20:00 | NUR ---
PT RESTING IN BED WITH EYES CLOSED. ENDOTUBE PATENT, TIES SECURE, VENT SETTINGS VERIFIED AND FUNCTIONING WITHOUT DIFFICULTY. LEFT IJ MLC AND RIGHT ARTLINE PATENT, DRESSINGS DRY AN INTACT. DORSEY PATENT FOR DARK JOAQUÍN URINE. NGT PATENT AND PLACEMENT VERIFIED VIA AIR BOLUS, TF NIRALI WELL. NO S/S OF HYPO/HYPERGLYCEMIA NOTED. ISOLATION PRECAUTIONS MAINTAINED.
[2020-10-16] VITALS: BP 116/64
[2020-10-16 04:00] VITALS: BP 131/67
[2020-10-16 06:08] LABS: ALBUMIN 2.2 gm/dl (3.1-4.5); CREATININE 1.75 mg/dL (0.70-1.30); POTASSIUM 4.5 mmol/L (3.5-5.1); TOTAL PROTEIN 4.9 gm/dL (6.4-8.2)
[2020-10-16 06:12] LABS: BASO % 0.1 % (0.0-1.0); HEMATOCRIT 36.4 % (42.0-52.0); LYMPH # 0.4 10*3/uL (1.3-4.4); LYMPH % 3.5 % (27.0-41.0); MEAN CELL VOLUME 86.3 fl (80.0-94.0); MEAN CORPUSCULAR HGB 26.5 pg (27.0-31.0); MEAN CORPUSCULAR HGB CONC 30.8 g/dl (33.0-37.0); MEAN PLATELET VOLUME 11.4 fl (9.6-12.3); MONO # 0.6 10*3/uL (0.1-1.0); NEUT # 10.1 10*3/uL (2.3-7.9); NEUT % 89.5 % (47.0-73.0); PLATELET COUNT AUTOMATED 272 10*3/uL (130-400); RED BLOOD COUNT 4.22 10*6/uL (4.50-5.90); RED CELL DISTRI WIDTH 16.3 % (0-14.5); WHITE BLOOD COUNT 11.3 10*3/uL (4.8-10.8)
[2020-10-16 06:34] LABS: INTERNATIONAL NORM RATIO 1.7 (2.0-3.5)
--- NOTE | 2020-10-16 06:50 | NUR ---
Shift chart check completed.
--- NOTE | 2020-10-16 07:19 | NUR ---
Referrals were faxed to both [facility] and [facility] for review. Patient must be extubated prior to discharge. Will follow
[2020-10-16 07:39] LABS: ABG BASE EXCESS 1.9 mmol/L (-2.0-2.0); ARTERIAL BLOOD GAS PH 7.399 (7.35-7.45)
[2020-10-16 08:00] VITALS: BP 115/96; BP 90/78
--- NOTE | 2020-10-16 11:13 | NUR ---
patient remains on vent. he has been referred to [facility] and [facility]. both facilities will review referral when patient is extubated. case management will follow
[2020-10-16 12:00] VITALS: BP 96/48
[2020-10-16 16:00] VITALS: BP 98/53
[2020-10-16 20:00] VITALS: BP 114/61
[2020-10-17] VITALS: BP 94/59
[2020-10-17 04:00] VITALS: BP 115/66
[2020-10-17 06:19] LABS: BASO % 0.1 % (0.0-1.0); EOS # 0.1 10*3/uL (0.0-0.4); HEMATOCRIT 36.9 % (42.0-52.0); LYMPH # 0.6 10*3/uL (1.3-4.4); LYMPH % 5.9 % (27.0-41.0); MEAN CELL VOLUME 85.8 fl (80.0-94.0); MEAN CORPUSCULAR HGB 26.5 pg (27.0-31.0); MEAN CORPUSCULAR HGB CONC 30.9 g/dl (33.0-37.0); MEAN PLATELET VOLUME 11.6 fl (9.6-12.3); MONO # 0.6 10*3/uL (0.1-1.0); MONO % 5.7 % (3.0-9.0); NEUT # 9.4 10*3/uL (2.3-7.9); NEUT % 85.7 % (47.0-73.0); PLATELET COUNT AUTOMATED 246 10*3/uL (130-400); RED CELL DISTRI WIDTH 16.6 % (0-14.5); WHITE BLOOD COUNT 10.9 10*3/uL (4.8-10.8)
[2020-10-17 06:42] LABS: POTASSIUM 4.3 mmol/L (3.5-5.1)
[2020-10-17 06:50] LABS: INTERNATIONAL NORM RATIO 1.7 (2.0-3.5)
[2020-10-17 06:51] LABS: ALBUMIN 2.1 gm/dl (3.1-4.5); CREATININE 1.58 mg/dL (0.70-1.30); TOTAL PROTEIN 4.9 gm/dL (6.4-8.2)
[2020-10-17 08:00] VITALS: BP 101/50
[2020-10-17 08:14] LABS: ABG BASE EXCESS 3.7 mmol/L (-2.0-2.0); ARTERIAL BLOOD GAS PH 7.429 (7.35-7.45)
--- NOTE | 2020-10-17 08:30 | NUR ---
AM ASSESSMENT COMPLETED - RIJ-MLC SECURE & PATENT TO ALL PORTS. RT ARTLINE SECURE & PATENT. WOUND TO LEFT HEEL PICTURED/STAGED & DOCUMENTED BY WOUND NURSE & RESIDENT. ORDERS RECEIVED. SUNITA SECURE & PATENT FOR JOAQUÍN URINE..HEEL RAISERS ON BILAT. EDMEA TO ALL EXTREMITIES W/ SEEPING TO BUE. SUCTIONED FOR LARGE AMOUNT OF THICK SPUTUM - ORAL CARE DONE
--- NOTE | 2020-10-17 10:41 | NUR ---
case management monitoring patient, patient remains on Vent at this time, [facility] and [facility] for when stable for discharge
[2020-10-17 12:00] VITALS: BP 124/79
--- NOTE | 2020-10-17 12:01 | NUR ---
OT NOTE Nursing screen received. Patient is currently on a ventilator. Patient is not appropriate for skilled OT services at this time. Please consult OT services when patient is extubated and medically appropriate for an OT evaluation. Thank you. Lyubov Amaro OTR/L
--- NOTE | 2020-10-17 12:06 | NUR ---
PHYSICAL THERAPY Nursing screen received. Patient is currently on a ventilator. Patient is not appropriate for skilled PT services at this time. Please consult PT services when patient is extubated and medically appropriate for an PT evaluation. Thanks Ruma Mays PT DPT
--- NOTE | 2020-10-17 14:00 | NUR ---
EXTUBATED TO BIPAP 15/8 40% AND SATS WERE 95-97%.. DECREASED FiO2 TO 35% AND SATS REMAINING 96%.. PATIENT SQUEEZED NURSES HAND PRE VERBAL & PHYSICAL REQUEST FOR 1ST TIME.. REASSURANCE PROVIDED
--- NOTE | 2020-10-17 14:15 | NUR ---
PATIENT EXTUBATED AND PLACED ON BIPAP 15/8, FIO2 35%. FIREMANS FULL FACE MASK WITH A CHIN STRAP USED.
--- NOTE | 2020-10-17 15:03 | NUR ---
Nutritional Support Services Note: Pt currently on vent sec to acute respiratory failure, COVID. New wound noted to left heel. Ht.6'4 Wt.259# He receives Nepro via NGT at 50cc/hr. Nepro is providing pt with 1200cc/2160calories. TF is providing pt with 114gr of protein daily. TF is appropriate at this time. Will continue to follow as needed. Grace Palomino Rdn Ld
[2020-10-17 16:00] VITALS: BP 100/51
--- NOTE | 2020-10-17 20:00 | NUR ---
Patients pulse ox began to drop, was going to bump up o2 then patients bp dropped to 40/20, became tawana. Notified Doc.
--- NOTE | 2020-10-17 20:04 | NUR ---
Notified family of patients condition deteriorating, family doesnt want to come in just want body sent to [facility] in [facility].
--- NOTE | 2020-10-17 21:05 | NUR ---
Belongings sent home with nephaleksandra Levine. [place], shorts and shirt.
--- NOTE | 2020-10-17 22:01 | NUR ---
[facility] IN TO CUSTOMER CONTACT REPRESENTATIVE BODY.
== END 2020-10-17 20:10 | disposition expired | DRG 207 ==
LOC: ED 17:40 → EDHOLD 18:50 → ICCU 18:50 → 4E 10-06 14:15 → ICCU 10-08 12:15
PROVIDERS: Emergency Medicine; Hospitalist; Internal Medicine; Internal Medicine Critical Care Medicine; Internal Medicine Nephrology; Social Worker Clinical; Student in an Organized Health Care Education/Training Program; ADMIT Student in an Organized Health Care Education/Training Program; ATTEND Student in an Organized Health Care Education/Training Program
PROC: 02HV33Z Insertion of Infusion Device into Superior Vena Cava, Percutaneous Approach (ICD-10-PCS; principal; 2020-10-08)
PROC: 5A1955Z Respiratory Ventilation, Greater than 96 Consecutive Hours (ICD-10-PCS; 2020-10-08)
PROC: 03HY32Z Insertion of Monitoring Device into Upper Artery, Percutaneous Approach (ICD-10-PCS; 2020-10-08)
PROC: 4A133B1 Monitoring of Arterial Pressure, Peripheral, Percutaneous Approach (ICD-10-PCS; 2020-10-08)
PROC: 4A133J1 Monitoring of Arterial Pulse, Peripheral, Percutaneous Approach (ICD-10-PCS; 2020-10-08)
PROC: 0BH17EZ Insertion of Endotracheal Airway into Trachea, Via Natural or Artificial Opening (ICD-10-PCS; 2020-10-08)
PROC: XW033E5 Introduction of Remdesivir Anti-infective into Peripheral Vein, Percutaneous Approach, New Technology Group 5 (ICD-10-PCS; 2020-10-09)
PROC: XW033H5 Introduction of Tocilizumab into Peripheral Vein, Percutaneous Approach, New Technology Group 5 (ICD-10-PCS; 2020-10-09)
PROC: 0BC98ZZ Extirpation of Matter from Lingula Bronchus, Via Natural or Artificial Opening Endoscopic (ICD-10-PCS; 2020-10-13)
PROC: 0BC48ZZ Extirpation of Matter from Right Upper Lobe Bronchus, Via Natural or Artificial Opening Endoscopic (ICD-10-PCS; 2020-10-13)
PROC: 0BC88ZZ Extirpation of Matter from Left Upper Lobe Bronchus, Via Natural or Artificial Opening Endoscopic (ICD-10-PCS; 2020-10-13)
PROC: 0BC58ZZ Extirpation of Matter from Right Middle Lobe Bronchus, Via Natural or Artificial Opening Endoscopic (ICD-10-PCS; 2020-10-13)
PROC: 0BC38ZZ Extirpation of Matter from Right Main Bronchus, Via Natural or Artificial Opening Endoscopic (ICD-10-PCS; 2020-10-13)
PROC: 0BC78ZZ Extirpation of Matter from Left Main Bronchus, Via Natural or Artificial Opening Endoscopic (ICD-10-PCS; 2020-10-13)
PROC: 0BC68ZZ Extirpation of Matter from Right Lower Lobe Bronchus, Via Natural or Artificial Opening Endoscopic (ICD-10-PCS; 2020-10-13)
PROC: 0BCB8ZZ Extirpation of Matter from Left Lower Lobe Bronchus, Via Natural or Artificial Opening Endoscopic (ICD-10-PCS; 2020-10-13)
PROC: 0BC18ZZ Extirpation of Matter from Trachea, Via Natural or Artificial Opening Endoscopic (ICD-10-PCS; 2020-10-13)
PROC: 5A09357 Assistance with Respiratory Ventilation, Less than 24 Consecutive Hours, Continuous Positive Airway Pressure (ICD-10-PCS; 2020-10-17)
DX: U07.1 COVID-19 (principal); N17.0 Acute kidney failure with tubular necrosis; J96.21 Acute and chronic respiratory failure with hypoxia; J12.82 Pneumonia due to coronavirus disease 2019; J44.0 Chronic obstructive pulmonary disease with (acute) lower respiratory infection; I13.0 Hypertensive heart and chronic kidney disease with heart failure and stage 1 through stage 4 chronic kidney disease, or unspecified chronic kidney disease; D68.69 Other thrombophilia; I48.21 Permanent atrial fibrillation; E46 Unspecified protein-calorie malnutrition; G93.40 Encephalopathy, unspecified; T17.590A Other foreign object in bronchus causing asphyxiation, initial encounter; X58.XXXA Exposure to other specified factors, initial encounter; I50.9 Heart failure, unspecified; G47.33 Obstructive sleep apnea (adult) (pediatric); E11.65 Type 2 diabetes mellitus with hyperglycemia; E66.01 Morbid (severe) obesity due to excess calories; D64.9 Anemia, unspecified; M81.0 Age-related osteoporosis without current pathological fracture; R74.01 Elevation of levels of liver transaminase levels; E78.5 Hyperlipidemia, unspecified; E11.22 Type 2 diabetes mellitus with diabetic chronic kidney disease; G25.81 Restless legs syndrome; M19.90 Unspecified osteoarthritis, unspecified site; N18.30 Chronic kidney disease, stage 3 unspecified; E03.9 Hypothyroidism, unspecified; E87.5 Hyperkalemia; E83.39 Other disorders of phosphorus metabolism; R07.89 Other chest pain; E83.41 Hypermagnesemia; Z79.01 Long term (current) use of anticoagulants; E78.1 Pure hyperglyceridemia; T45.515A Adverse effect of anticoagulants, initial encounter; Y92.89 Other specified places as the place of occurrence of the external cause; E87.6 Hypokalemia; Z66 Do not resuscitate; Z51.5 Encounter for palliative care; Z88.1 Allergy status to other antibiotic agents; Z88.0 Allergy status to penicillin; Z88.8 Allergy status to other drugs, medicaments and biological substances; Z91.048 Other nonmedicinal substance allergy status; Z90.49 Acquired absence of other specified parts of digestive tract; Z83.3 Family history of diabetes mellitus; Z82.49 Family history of ischemic heart disease and other diseases of the circulatory system; Z82.3 Family history of stroke; Z93.3 Colostomy status; Z68.30 Body mass index [BMI] 30.0-30.9, adult